=== PATIENT | female | born 1955 | race Caucasian/White ===

== ENCOUNTER 2016-10-07 22:01 | Emergency (ER) | payer OTHER ==
[~2016-10-07] VITALS: Ht 175.3 cm; Wt 117.9 kg
[~2016-10-07 22:01] MED LIST: AMOXIL500 MG PO; ASPIRIN325 M1 PO; ATIVAN1 M1 PO; AUGMENTIN 500M500 MG PO; AUGMENTIN 875-1 EACH PO; BACTRIM DS 8001 TAB PO; CEPHALEXIN500 MG PO; CYMBALTA 30 MG30 MG PO; CYMBALTA30 M1 PO; CYMBALTA60 M1 PO; DILAUDID2 MG PO; DOCUSATE SODIU100 MG PO; DOLOPHINE10 MG PO; DOXYCYCLINE HY100 M2 PO; DURAGESIC1 EAC1 TOP; GABAPENTIN300 M2 PO; GABAPENTIN300 MG PO; GLIMEPIRIDE4 M1 PO; GLUCOPHAGE1000 M1 PO; GLUCOPHAGE500 MG PO; HUMALOG KW100 UNIT/1 SC; HYDROCODONE/ACE1 TA1 PO; HYDROMORPHONE HC2 MG PO; IBUPROFEN600 M1 PO; KEFLEX500 M1 PO; KETOROLAC TROME10 M1 PO; LANTUS SOL100 UNIT/1 SC; MELATONIN5 M1 PO; METFORMIN500 MG PO; METHADONE H5 MG/5 ML PO; MINIPRESS1 MG PO; MIRALAX17 GM PO; MORPHINE SULFAT15 M2 PO; MOTRIN 400 MG400 MG PO; MOTRIN 600 MG600 MG PO; MS CONTIN30 MG PO; NEURONTIN100 M1 PO; NEURONTIN300 MG PO; NICODERM C14 MG/24 H TOP; NORCO 325 MG-51 TAB PO; OXYCODONE HCL10 M2 PO; PANTOPRAZOLE SO40 M1 PO; PERCOCET 325 MG1 TAB PO; PERCOCET 5-3251 EACH PO; PRAZOSIN HCL1 M1 PO; PRILOSEC 20MG C20 MG PO; QUETIAPINE FUM200 M1 PO; QUETIAPINE FUM300 M1 PO; QUETIAPINE FUM400 M1 PO; QUETIAPINE FUMA25 M1 PO; QUETIAPINE FUMA50 M1 PO; SENNA CON/DOCUS1 TAB PO; SENOKOT8.6 MG PO; SEROQUEL (MONO200 MG PO; SEROQUEL 100MG100 MG PO; SEROQUEL100 M1 PO; SEROQUEL300 MG PO; SEROQUEL50 MG PO; TYLENOL TAB 32325 MG PO; VIBRAMYCIN 100100 MG PO; VITAMIN B121000 MCG PO; VITAMIN D1000 IU PO
--- NOTE | 2016-10-07 22:08 | ED UPPER/LOWER EXTREMITY COMPL ---
History of Present Illness General Chief Complaint: General Adult Stated Complaint: CHRONIC PAIN Source: patient, EMS Exam Limitations: no limitations Vital Signs & Intake/Output Vital Signs & Intake/Output . Allergies Coded Allergies: NO KNOWN ALLERGIES (09/26/16) Reconcile Medications Doxycycline Hyclate 100 MG CAPSULE 1 CAP PO BID skin infection Duloxetine Hydrochloride (Cymbalta) 30 MG CAPSULE. 1 CAP PO DAILY NEUROPATHY (Reported) Gabapentin 300 MG CAPSULE 2 CAP PO TID NEUROPATHY (Reported) Glimepiride 4 MG TABLET 1 TAB PO DAILY DM (Reported) Ibuprofen 600 MG TABLET 1 TAB PO Q6-PRN PRN leg pain with food Insulin Glargine,Hum.rec.anlog (Lantus Solostar) 100 UNIT/1 ML INSULN.PEN 25 UNIT SC QAM DIABETES (Reported) Insulin Lispro (Humalog Kwikpen U-100) 100 UNIT/ML INSULN.PEN 1 UNITS SC TIDAC DM (Reported) SLIDING SCALE Ketorolac Tromethamine 10 MG TABLET 1 TAB PO Q6P PRN PAIN Lorazepam (Ativan) 1 MG TABLET 1 TAB PO BID PRN ANXIETY/NEUROPATHY SIX TABS... [id number] Metformin HCl (Glucophage) 1,000 MG TABLET 1 TAB PO BID DIABETES (Reported) Oxycodone HCl 10 MG TABLET 1 TAB PO TID PRN LEG PAIN Oxycodone HCl/Acetaminophen (Percocet 5-325 MG Tablet) 5 MG-325 MG TABLET 1 TAB PO 4XDP PRN PAIN six...[id number] Pantoprazole Sodium 40 MG TABLET.DR 1 TAB PO DAILY GERD (Reported) Prazosin Hydrochloride (Minipress) 1 MG CAPSULE 1 CAP PO QPM NIGHTMARES ( Reported) Quetiapine Fumarate 400 MG TABLET 1 TAB PO QPM SLEEP (Reported) Triage Nurses Notes Reviewed? yes Onset: Abrupt Duration: week(s):, waxing and waning Timing: recent history Severity: mild, moderate Pain/Injury Location: Left: Foot. Method of Injury: "I haven't slept in 2 days." Modifying Factors: Improves With: pain medication, rest. Associated Symptoms: left foot ulcer, "because I walked on it yesterday" HPI: 60 yo woman presents with chronic pain. She shares that she has not slept in 2 days. She notes also that she walked on her left foot which resulted in a superficial ulcer. She notes no new trauma. She is otherwise well. Past History Travel History Traveled to [place] past 21 day No Medical History Any Pertinent Medical History? 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 FH: CAD (coronary artery disease) FH: myocardial infarction relation unknown (HTN, Diabetee, Bipolar disorder and Depression). Hx Contributory? No Review of Systems Review of Systems Constitutional: Reports: no symptoms. EENTM: Reports: no symptoms. Respiratory: Reports: no symptoms. Cardiovascular: Reports: no symptoms. Gastrointestinal/Abdominal: Reports: no symptoms. Genitourinary: Reports: no symptoms. Musculoskeletal: Reports: no symptoms. Skin: Reports: no symptoms. Neurological/Psychological: Reports: no symptoms. Hematologic/Endocrine: Reports: no symptoms. Immunological: Reports: no symptoms. All Other Systems: Reviewed and Negative Physical Exam Physical Exam General Appearance: well developed/nourished, mild distress Head: atraumatic Eyes: Bilateral: PERRL, EOMI. Ears, Nose, Throat: normal pharynx, normal ENT inspection, hearing grossly normal Neck: normal inspection, supple Cardiovascular/Respiratory: regular rate/rhythm Back: normal inspection Foot Left: s/p metatarsal amputation with superficial ulcer, 2cm, on plantar aspect. no sign of infection. Foot Right: no change from prior exam. Skin: intact, normal color, warm/dry Lymphatic: no anterior cervical pat Progress Differential Diagnosis: chronic pain vs neuropathy vs other. Plan of Care: Current Medications Sig/Macy Start time Last Medication Dose Stop Time Status Admin Acetaminophen 975 MG ONCE ONE 10/07 2214 UNVr (Tylenol) 10/07 2215 Ibuprofen 800 MG ONCE ONE 10/07 2214 UNVr (Motrin) 10/07 2215 non infected shallow left foot ulcer... generous bacitracin dressing with gauze place on left foot. Pt to follow up with pmd, pain management, and wound care. (ANTWON OSBORN,URIEL Bain) Departure Departure Disposition: HOME OR SELF CARE Condition: Stable Clinical Impression Primary Impression: Chronic pain Secondary Impressions: Foot ulcer, Neuropathy Referrals: SAL LOERA APRN (PCP/Family) Departure Forms: Customer Survey General Discharge Information
[2016-10-07 22:24] VITALS: BP 145/82
== END 2016-10-07 22:36 ==
LOC: ERH 22:01
DX: L97.529 Non-pressure chronic ulcer of other part of left foot with unspecified severity (principal); G62.9 Polyneuropathy, unspecified

== ENCOUNTER 2016-10-10 17:05 | Emergency (ER) | payer OTHER ==
[~2016-10-10] VITALS: Ht 175.3 cm; Wt 120.7 kg
[2016-10-10 17:16] VITALS: BP 142/68
--- NOTE | 2016-10-10 17:51 | ED UPPER/LOWER EXTREMITY COMPL ---
History of Present Illness General Chief Complaint: Lower Extremity Problems Stated Complaint: LEFT LEG AND FOOT PAIN Source: patient Exam Limitations: no limitations Allergies Coded Allergies: NO KNOWN ALLERGIES (09/26/16) Reconcile Medications Doxycycline Hyclate 100 MG CAPSULE 1 CAP PO BID skin infection Duloxetine Hydrochloride (Cymbalta) 30 MG CAPSULE.DR 1 CAP PO DAILY NEUROPATHY (Reported) Gabapentin 300 MG CAPSULE 2 CAP PO TID NEUROPATHY (Reported) Glimepiride 4 MG TABLET 1 TAB PO DAILY DM (Reported) Ibuprofen 600 MG TABLET 1 TAB PO Q6-PRN PRN leg pain with food Insulin Glargine,Hum.rec.anlog (Lantus Solostar) 100 UNIT/1 ML INSULN.PEN 25 UNIT SC QAM DIABETES (Reported) Insulin Lispro (Humalog Kwikpen U-100) 100 UNIT/ML INSULN.PEN 1 UNITS SC TIDAC DM (Reported) SLIDING SCALE Ketorolac Tromethamine 10 MG TABLET 1 TAB PO Q6P PRN PAIN Ketorolac Tromethamine 10 MG TABLET 1 TAB PO Q6P PRN PAIN Lorazepam (Ativan) 1 MG TABLET 1 TAB PO BID PRN ANXIETY/NEUROPATHY SIX TABS... [id number] Metformin HCl (Glucophage) 1,000 MG TABLET 1 TAB PO BID DIABETES (Reported) Oxycodone HCl 10 MG TABLET 1 TAB PO TID PRN LEG PAIN Oxycodone HCl/Acetaminophen (Percocet 5-325 MG Tablet) 5 MG-325 MG TABLET 1 TAB PO 4XDP PRN PAIN six...[id number] Pantoprazole Sodium 40 MG TABLET. 1 TAB PO DAILY GERD (Reported) Prazosin Hydrochloride (Minipress) 1 MG CAPSULE 1 CAP PO QPM NIGHTMARES ( Reported) Quetiapine Fumarate 400 MG TABLET 1 TAB PO QPM SLEEP (Reported) Triage Note: PT HERE FOR HER CHRONIC LEG AND FOOT PAIN. Triage Nurses Notes Reviewed? yes HPI: This patient is a 61-year-old female with chronic leg and foot pain status post amputation on the left foot who presented to the emergency department today by maintenance for evaluation of chronic pain. The patient reported that she sees pain management in her primary care physician, but neither are prescribing her pain medications at this time. She has another appointment in 1 month. The patient was seen here at [facility] earlier today by Dr. Zayas where she had her lower extremity wounds checked and dressed. The patient reported that her left foot pain where she has an ulcer started hurting her more last night. She reported the pain to the to a 10 out of 10 and sometimes radiates up her leg. The patient denied any fevers, chills, abdominal pain, difficulty breathing, or chest pain. The patient is requesting a shot of Toradol and a shot of Benadryl. She reported, "I just need his medications and then I will be on my way." (MARGO DE PAZ PA-C) Vital Signs & Intake/Output Vital Signs & Intake/Output ED Intake and Output 10/11 0000 10/10 1200 Intake Total Output Total Balance Patient 266 lb Weight Past History Travel History Traveled to [place] past 21 day No Medical History Any Pertinent Medical History? 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 Other Medical Hx: hep B, osteomyelitis, peripheral vascular disease History of MRSA: Yes History of VRE: No History of CDIFF: No Surgical History Surgical History: LEFT FOOT TRANSMETATARSAL AMPUTATION, VASCULAR PROCEDURE LOWER LEGS status post lower extremity revascularization Psychosocial History Who do you live with Patient/Self Services at Home Home Health Aide, Nursing What is your primary language Indian Tobacco Use: Current Daily Use Daily Tobacco Use Amount/Type: => 5 Cigarettes daily ETOH Use: denies use Illicit Drug Use: marijuana Family History Family History, If Any: MOTHER (PVD, always had purple feet). FH: CAD (coronary artery disease) FH: myocardial infarction relation unknown (HTN, Diabetee, Bipolar disorder and Depression). Hx Contributory? Yes (MARGO DE PAZ PA-C) Review of Systems Review of Systems Constitutional: Reports: no symptoms. EENTM: Reports: no symptoms. Respiratory: Reports: no symptoms. Cardiovascular: Reports: no symptoms. Gastrointestinal/Abdominal: Reports: no symptoms. Musculoskeletal: Reports: see HPI. Skin: Reports: see HPI. Neurological/Psychological: Reports: no symptoms. All Other Systems: Reviewed and Negative (MARGO DE PAZ PA-C) Physical Exam Physical Exam General Appearance: well developed/nourished, no apparent distress, alert, awake Comments: Well-developed well-nourished person in no acute distress HEENT: Normal EENT exam, head normocephalic, moist mucous membranes Neck: Supple Back: Normal inspection Respiratory: No respiratory distress. Speaking in full sentences Left foot/ankle: No edema or erythema. Clean bandage intact over the plantar aspect of the foot which is status post amputation with no surrounding skin irritation or signs of infection. Dorsalis pedis and posterior tibialis pulses 2+ and strong. Full range of motion of the ankle. No signs of effusion or trauma. Neuro: Alert oriented x3, cranial nerves II through XII grossly intact. Skin: No appreciable rash on exposed skin, skin is warm and dry. Psych: Mood and affect is normal, memory and judgment is normal. (MARGO DE PAZ PA-C) Progress Differential Diagnosis: arterial insufficiency, cellulitis, contusion, DVT, gout , ULCERATION, MEDICATION SEEKING Plan of Care: Current Medications Sig/Macy Start time Last Medication Dose Stop Time Status Admin Diphenhydramine HCl 50 MG ONCE ONE 10/10 1744 AC (Benadryl) 10/10 1745 Ketorolac 60 MG ONCE ONE 10/10 1744 AC Tromethamine 10/10 1745 (Toradol) Departure Departure Disposition: HOME OR SELF CARE Condition: Stable Clinical Impression Primary Impression: Chronic pain Qualifiers: Chronic pain type: other chronic pain Qualified Code: G89.29 - Other chronic pain Referrals: SAL LOERA APRN (PCP/Family) Additional Instructions: Continue to take all previously prescribed medications as directed. Be sure to follow-up with your primary care physician. Be sure to attend her previously scheduled appointment with pain management. Return for any worsening symptoms or concerns. Departure Forms: Customer Survey General Discharge Information (MARGO DE PAZ PA-C) PA/MANAGER DATABASE Co-Sign Statement Statement: ED Attending supervision documentation- [] I saw and evaluated the patient. I have also reviewed all the pertinent lab results and diagnostic results. I agree with the findings and the plan of care as documented in the PA's/MANAGER DATABASE's documentation. [X] I have reviewed the ED Record and agree with the PA's/MANAGER DATABASE's documentation. [] Additions or exceptions (if any) to the PAs/MANAGER DATABASE's note and plan are summarized below: [] (ALLEN OSBORN,JONNA)
[2016-10-11] MEDS ORDERED: KETOROLAC TROME10 M1 PO (20:47)
== END 2016-10-10 19:14 ==
LOC: ERH 17:05
DX: L97.529 Non-pressure chronic ulcer of other part of left foot with unspecified severity (principal); G89.29 Other chronic pain
CPT/HCPCS: 96372; 97597; J1200; J1885

== ENCOUNTER 2016-10-11 17:24 | Emergency (ER) | payer OTHER ==
[~2016-10-11] VITALS: Ht 175.3 cm; Wt 120.7 kg
--- NOTE | 2016-10-11 20:46 | ED GENERAL ADULT ---
History of Present Illness General Chief Complaint: Lower Extremity Problems Stated Complaint: BILATERAL LEG PAIN Source: patient, old records Exam Limitations: no limitations Vital Signs & Intake/Output Vital Signs & Intake/Output Vital Signs Date Time Temp Pulse Resp B/P Pulse O2 O2 Flow FiO2 Ox Delivery Rate 10/11 1807 97.5 79 16 153/85 96 Room Air Allergies Coded Allergies: NO KNOWN ALLERGIES (09/26/16) Reconcile Medications Doxycycline Hyclate 100 MG CAPSULE 1 CAP PO BID skin infection Duloxetine Hydrochloride (Cymbalta) 30 MG CAPSULE.DR 1 CAP PO DAILY NEUROPATHY (Reported) Gabapentin 300 MG CAPSULE 2 CAP PO TID NEUROPATHY (Reported) Glimepiride 4 MG TABLET 1 TAB PO DAILY DM (Reported) Ibuprofen 600 MG TABLET 1 TAB PO Q6-PRN PRN leg pain with food Insulin Glargine,Hum.rec.anlog (Lantus Solostar) 100 UNIT/1 ML INSULN.PEN 25 UNIT SC QAM DIABETES (Reported) Insulin Lispro (Humalog Kwikpen U-100) 100 UNIT/ML INSULN.PEN 1 UNITS SC TIDAC DM (Reported) SLIDING SCALE Ketorolac Tromethamine 10 MG TABLET 1 TAB PO Q6P PRN PAIN Ketorolac Tromethamine 10 MG TABLET 1 TAB PO Q6P PRN PAIN Lorazepam (Ativan) 1 MG TABLET 1 TAB PO BID PRN ANXIETY/NEUROPATHY SIX TABS... [id number] Metformin HCl (Glucophage) 1,000 MG TABLET 1 TAB PO BID DIABETES (Reported) Oxycodone HCl 10 MG TABLET 1 TAB PO TID PRN LEG PAIN Oxycodone HCl/Acetaminophen (Percocet 5-325 MG Tablet) 5 MG-325 MG TABLET 1 TAB PO 4XDP PRN PAIN six...[id number] Pantoprazole Sodium 40 MG TABLET.DR 1 TAB PO DAILY GERD (Reported) Prazosin Hydrochloride (Minipress) 1 MG CAPSULE 1 CAP PO QPM NIGHTMARES ( Reported) Quetiapine Fumarate 400 MG TABLET 1 TAB PO QPM SLEEP (Reported) Triage Note: PT HERE FOR CRONIC LOWER EXT. PAIN Triage Nurses Notes Reviewed? yes Onset: chronic Duration: constant, continues in ED Timing: remote history Injury Environment: home Severity: moderate Modifying Factors: Worsens With: movement. LMP (ages 10-50): post menopausal : No Patient currently breastfeeds: No HPI: Patient presents with chronic bilateral feet pain and recurrent left foot ulcer evaluated in wound clinic 1 day ago. Reportedly seen by pain management with meds to begin in 1 month. No fever chills chest pain shortness of breath nausea vomiting diarrhea abdominal pain dysuria bleeding. Past History Travel History Traveled to [place] past 21 day No Medical History Any Pertinent Medical History? 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 Other Medical Hx: hep B, osteomyelitis, peripheral vascular disease History of MRSA: Yes History of VRE: No History of CDIFF: No Surgical History Surgical History: LEFT FOOT TRANSMETATARSAL AMPUTATION, VASCULAR PROCEDURE LOWER LEGS status post lower extremity revascularization Psychosocial History Who do you live with Patient/Self Services at Home Home Health Aide, Nursing What is your primary language Guinean Tobacco Use: Current Daily Use Daily Tobacco Use Amount/Type: => 5 Cigarettes daily ETOH Use: denies use Illicit Drug Use: denies illicit drug use Family History Family History, If Any: MOTHER (PVD, always had purple feet). FH: CAD (coronary artery disease) FH: myocardial infarction relation unknown (HTN, Diabetee, Bipolar disorder and Depression). Hx Contributory? No Review of Systems Review of Systems Constitutional: Reports: no symptoms. EENTM: Reports: no symptoms. Respiratory: Reports: no symptoms. Cardiovascular: Reports: no symptoms. GI: Reports: no symptoms. Genitourinary: Reports: no symptoms. Musculoskeletal: Reports: see HPI. Skin: Reports: see HPI, rash. Neurological/Psychological: Reports: no symptoms. Hematologic/Endocrine: Reports: no symptoms. Immunologic/Allergic: Reports: no symptoms. All Other Systems: Reviewed and Negative Physical Exam Physical Exam General Appearance: well developed/nourished, alert, awake, anxious, mild distress, obese Head: atraumatic, normal appearance Eyes: Bilateral: normal appearance, PERRL, EOMI. Ears, Nose, Throat: normal pharynx, normal ENT inspection Neck: normal inspection, supple, full range of motion, no midline tenderness Respiratory: normal breath sounds, chest non-tender, no respiratory distress, quiet respiration, lungs clear Cardiovascular: regular rate/rhythm, normal peripheral pulses, norml femoral pulses equa Peripheral Pulses: 4+ carotid (R), 4+ carotid (L), 2+ radial (R), 2+ radial (L) Gastrointestinal: normal bowel sounds, soft, non-tender, no organomegaly Back: normal inspection, normal range of motion, no vertebral tenderness Extremities: normal range of motion, dime size superficial ulcer without erythema left foot Neurologic/Psych: no motor/sensory deficits, awake, alert, oriented x 3, carton marker machine II- XII nml as tested Reflexes: 2+: bicep (R), bicep (L). Skin: intact, normal color Lymphatic: no anterior cervical pat Core Measures ACS in differential dx? No CVA/TIA Diagnosis: No Severe Sepsis Present: No Septic Shock Present: No Progress Differential Diagnoses I considered the following diagnoses in my evaluation of the patient: chronic pain syndrome diabetic foot ulcer Plan of Care: Current Medications Sig/Macy Start time Last Medication Dose Stop Time Status Admin Gabapentin 600 MG ONCE ONE 10/11 2044 UNVr (Neurontin) 10/11 2045 Ibuprofen 800 MG ONCE ONE 10/11 2044 UNVr (Motrin) 10/11 2045 Initial ED EKG: none Departure Departure Time of Disposition: 2044 Disposition: HOME OR SELF CARE Condition: Stable Clinical Impression Primary Impression: Chronic pain syndrome Secondary Impressions: Ulcer of left foot Qualifiers: Non-pressure ulcer stage: unspecified non-pressure ulcer stage Qualified Code: L97.529 - Non-pressure chronic ulcer of other part of left foot with unspecified severity Referrals: SAL LOERA APRN (PCP/Family) Additional Instructions: Increase gabapentin to 600 mg 4 times a day Departure Forms: Customer Survey General Discharge Information Prescriptions: Current Visit Scripts Ketorolac Tromethamine 1 TAB PO Q6P PRN PAIN #20 TAB Critical Care Note Critical Care Note Critical Care Time: non-applicable
[2016-10-11] MEDS ORDERED: KETOROLAC TROME10 M1 PO (20:47)
[2016-10-11 21:39] VITALS: BP 145/84
== END 2016-10-11 21:41 ==
LOC: ERH 17:24
DX: L97.529 Non-pressure chronic ulcer of other part of left foot with unspecified severity (principal); G89.29 Other chronic pain
CPT/HCPCS: 96372; J1885

== ENCOUNTER 2016-10-16 03:05 | Emergency (ER) | payer OTHER ==
[~2016-10-16] VITALS: Ht 176.5 cm; Wt 120.7 kg
--- NOTE | 2016-10-16 03:17 | ED UPPER/LOWER EXTREMITY COMPL ---
History of Present Illness General Chief Complaint: Lower Extremity Problems Stated Complaint: BIBA BILAT LEG PAIN Source: patient, old records, EMS Exam Limitations: no limitations Vital Signs & Intake/Output Vital Signs & Intake/Output Vital Signs Date Time Temp Pulse Resp B/P Pulse O2 O2 Flow FiO2 Ox Delivery Rate 10/16 318 97.7 107 149/61 10/16 0309 96 Room Air 10/16 0309 110 18 96 Room Air Allergies Coded Allergies: NO KNOWN ALLERGIES (09/26/16) Reconcile Medications Doxycycline Hyclate 100 MG CAPSULE 1 CAP PO BID skin infection Duloxetine Hydrochloride (Cymbalta) 30 MG CAPSULE.DR 1 CAP PO DAILY NEUROPATHY (Reported) Gabapentin 300 MG CAPSULE 2 CAP PO TID NEUROPATHY (Reported) Glimepiride 4 MG TABLET 1 TAB PO DAILY DM (Reported) Ibuprofen 600 MG TABLET 1 TAB PO Q6-PRN PRN leg pain with food Insulin Glargine,Hum.rec.anlog (Lantus Solostar) 100 UNIT/1 ML INSULN.PEN 25 UNIT SC QAM DIABETES (Reported) Insulin Lispro (Humalog Kwikpen U-100) 100 UNIT/ML INSULN.PEN 1 UNITS SC TIDAC DM (Reported) SLIDING SCALE Ketorolac Tromethamine 10 MG TABLET 1 TAB PO Q6P PRN PAIN Ketorolac Tromethamine 10 MG TABLET 1 TAB PO Q6P PRN PAIN Lidocaine HCl (Lidocaine) 5 % OINT...G. PAIN (Reported) Lorazepam (Ativan) 1 MG TABLET 1 TAB PO BID PRN ANXIETY/NEUROPATHY SIX TABS... [id number] Metformin HCl (Glucophage) 1,000 MG TABLET 1 TAB PO BID DIABETES (Reported) Metoprolol Succinate 50 MG TAB.ER.24H 1 TAB PO DAILY HTN (Reported) Oxycodone HCl 10 MG TABLET 1 TAB PO TID PRN LEG PAIN Oxycodone HCl/Acetaminophen (Percocet 5-325 MG Tablet) 5 MG-325 MG TABLET 1 TAB PO 4XDP PRN PAIN six...[id number] Pantoprazole Sodium 40 MG TABLET.DR 1 TAB PO DAILY GERD (Reported) Prazosin Hydrochloride (Minipress) 1 MG CAPSULE 1 CAP PO QPM NIGHTMARES ( Reported) Quetiapine Fumarate 400 MG TABLET 1 TAB PO QPM SLEEP (Reported) Triage Note: TRIAGE: PATIENT BERTA FROM HOME REPORTING CHRONIC BILAT LOWER EXT PAIN 10/10. TAKING HOME MEDS W/O RELIEF. DENIES OTHER COMPLAINTS. AGITATED AND REFUSING VITAL SIGNS IN TRIAGE. Triage Nurses Notes Reviewed? yes HPI: Patient called complaining of bilateral leg pain. Patient has been seen multiple times for similar complaints. Patient was seen by her floor cashier yesterday and he scheduled her to see a vascular surgeon. The pain is chronic. Pain worsens at night. The pain is aching and throbbing in nature. Pain is 10 out of 10. There are no aggravating or mitigating factors. There is no recent trauma. Past History Travel History Traveled to [place] past 21 day No Medical History Any Pertinent Medical History? 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 Other Medical Hx: hep B, osteomyelitis, peripheral vascular disease History of MRSA: Yes History of VRE: No History of CDIFF: No Surgical History Surgical History: LEFT FOOT TRANSMETATARSAL AMPUTATION, VASCULAR PROCEDURE LOWER LEGS status post lower extremity revascularization Psychosocial History Who do you live with Patient/Self Services at Home Home Health Aide, Nursing What is your primary language Lao Tobacco Use: Current Daily Use Daily Tobacco Use Amount/Type: => 5 Cigarettes daily ETOH Use: denies use Illicit Drug Use: denies illicit drug use Family History Family History, If Any: MOTHER (PVD, always had purple feet). FH: CAD (coronary artery disease) FH: myocardial infarction relation unknown (HTN, Diabetee, Bipolar disorder and Depression). Hx Contributory? No Review of Systems Review of Systems Constitutional: Reports: no symptoms. Respiratory: Reports: no symptoms. Cardiovascular: Reports: no symptoms. Gastrointestinal/Abdominal: Reports: no symptoms. Musculoskeletal: Reports: see HPI. Immunological: Reports: no symptoms. Physical Exam Physical Exam General Appearance: well developed/nourished, alert, awake, moderate distress Head: atraumatic Eyes: Bilateral: PERRL, EOMI. Neck: normal inspection, supple Cardiovascular/Respiratory: normal breath sounds, normal peripheral pulses, regular rate/rhythm, no respiratory distress Foot Left: MIDTARSAL AMPUTATION Foot Right: ULCER Neurologic/Tendon: responds to pain Progress Differential Diagnosis: ACUTE EXACERBATION OF CHRONIC LEG PAIN Plan of Care: Current Medications Sig/Macy Start time Last Medication Dose Stop Time Status Admin Diphenhydramine HCl 50 MG ONCE ONE 10/16 314 UNVr (Benadryl) 10/16 315 Ketorolac 60 MG ONCE ONE 10/16 314 UNVr Tromethamine 10/16 315 (Toradol) Departure Departure Disposition: HOME OR SELF CARE Condition: Stable Clinical Impression Primary Impression: Bilateral leg pain Referrals: SAL LOERA APRN (PCP/Family) TROY VARNER MD Additional Instructions: FOLLOW UP WITH DR. VARNER Departure Forms: Customer Survey General Discharge Information
[2016-10-16 03:19] VITALS: BP 149/61
[2016-10-16] MEDS ORDERED: METOPROLOL SUCC50 M2 PO (03:34)
[2016-10-16] MEDS ORDERED: LIDOCAINE35.44 GM (03:34)
== END 2016-10-16 03:35 ==
LOC: ERH 03:05
DX: M79.604 Pain in right leg (principal); M79.605 Pain in left leg
CPT/HCPCS: 96372; J1200; J1885

== ENCOUNTER 2016-10-19 23:45 | Emergency (ER) | payer OTHER ==
[~2016-10-19] VITALS: Ht 167.6 cm; Wt 95.3 kg
[~2016-10-19 23:45] MED LIST changes: +LIDOCAINE35.44 GM; +METOPROLOL SUCC50 M2 PO
--- NOTE | 2016-10-19 23:50 | ED UPPER/LOWER EXTREMITY COMPL ---
History of Present Illness General Chief Complaint: Lower Extremity Problems Stated Complaint: BIBA X'S C/O CHRONIC LEG PAIN Source: patient, EMS Exam Limitations: no limitations Vital Signs & Intake/Output Vital Signs & Intake/Output Vital Signs Date Time Temp Pulse Resp B/P Pulse O2 O2 Flow FiO2 Ox Delivery Rate 10/20 0007 98.7 85 19 134/70 96 Room Air 10/19 2359 99 Room Air Allergies Coded Allergies: NO KNOWN ALLERGIES (09/26/16) Reconcile Medications Doxycycline Hyclate 100 MG CAPSULE 1 CAP PO BID skin infection Duloxetine Hydrochloride (Cymbalta) 30 MG CAPSULE.DR 1 CAP PO DAILY NEUROPATHY (Reported) Gabapentin 300 MG CAPSULE 2 CAP PO TID NEUROPATHY (Reported) Glimepiride 4 MG TABLET 1 TAB PO DAILY DM (Reported) Ibuprofen 600 MG TABLET 1 TAB PO Q6-PRN PRN leg pain with food Insulin Glargine,Hum.rec.anlog (Lantus Solostar) 100 UNIT/1 ML INSULN.PEN 25 UNIT SC QAM DIABETES (Reported) Insulin Lispro (Humalog Kwikpen U-100) 100 UNIT/ML INSULN.PEN 1 UNITS SC TIDAC DM (Reported) SLIDING SCALE Ketorolac Tromethamine 10 MG TABLET 1 TAB PO Q6P PRN PAIN Ketorolac Tromethamine 10 MG TABLET 1 TAB PO Q6P PRN PAIN Lidocaine HCl (Lidocaine) 5 % OINT...G. PAIN (Reported) Lorazepam (Ativan) 1 MG TABLET 1 TAB PO BID PRN ANXIETY/NEUROPATHY SIX TABS... [id number] Metformin HCl (Glucophage) 1,000 MG TABLET 1 TAB PO BID DIABETES (Reported) Metoprolol Succinate 50 MG TAB.ER.24H 1 TAB PO DAILY HTN (Reported) Oxycodone HCl 10 MG TABLET 1 TAB PO TID PRN LEG PAIN Oxycodone HCl/Acetaminophen (Percocet 5-325 MG Tablet) 5 MG-325 MG TABLET 1 TAB PO 4XDP PRN PAIN six...[id number] Pantoprazole Sodium 40 MG TABLET.DR 1 TAB PO DAILY GERD (Reported) Prazosin Hydrochloride (Minipress) 1 MG CAPSULE 1 CAP PO QPM NIGHTMARES ( Reported) Quetiapine Fumarate 400 MG TABLET 1 TAB PO QPM SLEEP (Reported) Triage Nurses Notes Reviewed? yes Onset: Gradual Duration: intermittent Timing: recent history Severity: mild, moderate Pain/Injury Location: Bilateral: Foot. Method of Injury: unknown Modifying Factors: Worsens With: movement. Associated Symptoms: "pins and needles" HPI: 61yo woman presents with bilateral foot pain, consistent with prior episodes of neuropathy. She notes that she was unable to secure an appointment yet for her pain management consultation. She has no ibuprofen at home or other medications for pain that other prescribers have given to her. She notes no new injury. She has no fever chills swelling shortness of breath chest pain fever headache or abdominal pain. She is otherwise well. Past History Medical History Any Pertinent Medical History? 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 FH: CAD (coronary artery disease) FH: myocardial infarction relation unknown (HTN, Diabetee, Bipolar disorder and Depression). Hx Contributory? No Review of Systems Review of Systems Constitutional: Reports: no symptoms. EENTM: Reports: no symptoms. Respiratory: Reports: no symptoms. Cardiovascular: Reports: no symptoms. Gastrointestinal/Abdominal: Reports: no symptoms. Genitourinary: Reports: no symptoms. Musculoskeletal: Reports: no symptoms. Skin: Reports: no symptoms. Neurological/Psychological: Reports: no symptoms. Hematologic/Endocrine: Reports: no symptoms. Immunological: Reports: no symptoms. All Other Systems: Reviewed and Negative Physical Exam Physical Exam General Appearance: well developed/nourished, mild distress Head: atraumatic Eyes: Bilateral: normal appearance. Ears, Nose, Throat: normal pharynx, normal ENT inspection, hearing grossly normal Neck: normal inspection, supple Cardiovascular/Respiratory: regular rate/rhythm Back: normal inspection Skin: intact, normal color, warm/dry Lymphatic: no anterior cervical pat Comments: Bilateral feet are clean dry and intact with metatarsal amputations area there is no sign of infection or edema. Light touch is diminished bilaterally. There is no change from prior exams by this provider. Progress Differential Diagnosis: neuropathy versus chronic pain versus muscle spasm versus other Plan of Care: Patient given Toradol 60 mg IM and Benadryl 50 mg IM per her request. I encouraged close follow-up with her PMD and pain management. Departure Departure Disposition: HOME OR SELF CARE Condition: Stable Clinical Impression Primary Impression: Chronic pain Secondary Impressions: Neuropathy Referrals: SAL LOERA APRN (PCP/Family) Departure Forms: Customer Survey General Discharge Information Prescriptions: Current Visit Scripts Ibuprofen 1 TAB PO Q6-PRN PRN leg pain #90 TAB with food
[2016-10-19] MEDS ORDERED: IBUPROFEN600 M1 PO (23:52)
[2016-10-20 00:07] VITALS: BP 134/70
== END 2016-10-20 00:07 ==
LOC: ERH 23:45
DX: G57.61 Lesion of plantar nerve, right lower limb (principal); G57.62 Lesion of plantar nerve, left lower limb
CPT/HCPCS: 96372

== ENCOUNTER 2016-10-20 02:06 | Emergency (ER) | payer OTHER ==
[~2016-10-20] VITALS: Ht 162.6 cm; Wt 95.3 kg
--- NOTE | 2016-10-20 02:20 | ED CARDIAC/CP/PALPITATIONS ---
History of Present Illness General Chief Complaint: Chest Pain Stated Complaint: BIBA CP Source: patient Exam Limitations: no limitations Vital Signs & Intake/Output Vital Signs & Intake/Output . Allergies Coded Allergies: NO KNOWN ALLERGIES (09/26/16) Reconcile Medications Doxycycline Hyclate 100 MG CAPSULE 1 CAP PO BID skin infection Duloxetine Hydrochloride (Cymbalta) 30 MG CAPSULE.DR 1 CAP PO DAILY NEUROPATHY (Reported) Gabapentin 300 MG CAPSULE 2 CAP PO TID NEUROPATHY (Reported) Glimepiride 4 MG TABLET 1 TAB PO DAILY DM (Reported) Ibuprofen 600 MG TABLET 1 TAB PO Q6-PRN PRN leg pain with food Insulin Glargine,Hum.rec.anlog (Lantus Solostar) 100 UNIT/1 ML INSULN.PEN 25 UNIT SC QAM DIABETES (Reported) Insulin Lispro (Humalog Kwikpen U-100) 100 UNIT/ML INSULN.PEN 1 UNITS SC TIDAC DM (Reported) SLIDING SCALE Ketorolac Tromethamine 10 MG TABLET 1 TAB PO Q6P PRN PAIN Ketorolac Tromethamine 10 MG TABLET 1 TAB PO Q6P PRN PAIN Lidocaine HCl (Lidocaine) 5 % OINT...G. PAIN (Reported) Lorazepam (Ativan) 1 MG TABLET 1 TAB PO BID PRN ANXIETY/NEUROPATHY SIX TABS... [id number] Metformin HCl (Glucophage) 1,000 MG TABLET 1 TAB PO BID DIABETES (Reported) Metoprolol Succinate 50 MG TAB.ER.24H 1 TAB PO DAILY HTN (Reported) Oxycodone HCl 10 MG TABLET 1 TAB PO TID PRN LEG PAIN Oxycodone HCl/Acetaminophen (Percocet 5-325 MG Tablet) 5 MG-325 MG TABLET 1 TAB PO 4XDP PRN PAIN six...[id number] Pantoprazole Sodium 40 MG TABLET.DR 1 TAB PO DAILY GERD (Reported) Prazosin Hydrochloride (Minipress) 1 MG CAPSULE 1 CAP PO QPM NIGHTMARES ( Reported) Quetiapine Fumarate 400 MG TABLET 1 TAB PO QPM SLEEP (Reported) Triage Nurses Notes Reviewed? yes Onset: Gradual Duration: minute(s): Timing: recent history Quality/Severity: mild Location: central Radiation: no radiation Activities at Onset: none Prior Chest Pain/Card Workup: non-cardiac Modifying Factors: Worsens With: palpation. HPI: 61-year-old woman returns to the emergency department less than 1 hour after her discharge reporting chest pain. She states that she has pain when she presses her chest. She has no fever chills shortness of breath wheezing. Her pain does not radiate. She is otherwise well. Past History Travel History Traveled to [place] past 21 day No Medical History Any Pertinent Medical History? 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 FH: CAD (coronary artery disease) FH: myocardial infarction relation unknown (HTN, Diabetee, Bipolar disorder and Depression). Hx Contributory? No Review of Systems Review of Systems Constitutional: Reports: no symptoms. EENTM: Reports: no symptoms. Respiratory: Reports: no symptoms. Cardiovascular: Reports: no symptoms. GI: Reports: no symptoms. Genitourinary: Reports: no symptoms. Musculoskeletal: Reports: no symptoms. Skin: Reports: no symptoms. Neurological/Psychological: Reports: no symptoms. Hematologic/Endocrine: Reports: no symptoms. Immunologic/Allergic: Reports: no symptoms. All Other Systems: Reviewed and Negative Physical Exam Physical Exam General Appearance: well developed/nourished, mild distress Head: atraumatic, normal appearance Eyes: Bilateral: normal appearance. Ears, Nose, Throat: normal pharynx, normal ENT inspection Neck: normal inspection, supple, full range of motion Respiratory: normal breath sounds, chest non-tender, no respiratory distress Cardiovascular: regular rate/rhythm Gastrointestinal: normal bowel sounds, soft, non-tender, no organomegaly Back: normal inspection, normal range of motion Extremities: normal inspection Neurologic/Psych: no motor/sensory deficits, awake, alert, oriented x 3 Skin: intact, normal color, warm/dry Core Measures ACS in differential dx? No Severe Sepsis Present: No Septic Shock Present: No Progress Differential Diagnosis: TX versus unstable angina versus costochondritis versus other. Plan of Care: Orders Procedure Date/time Status EKG 10/20 208 Active Laboratory Tests 10/20/16 0218: Troponin I Cancelled, CBC w Diff Cancelled, WBC Cancelled, RBC Cancelled, Hgb Cancelled, Hct Cancelled, MCV Cancelled, MCH Cancelled, RDW Cancelled, Plt Count Cancelled, MPV Cancelled, PUBS MCHC Cancelled Initial ED EKG: none Departure Departure Disposition: LEFT AGAINST MEDICAL ADVICE Condition: Stable Clinical Impression Primary Impression: Chest pain Referrals: SAL LOERA APRN (PCP/Family) Departure Forms: Customer Survey General Discharge Information Comments 10/20/16, 3:20am... Pt presents soon after her recent visit to ED. upon arrival, she insisted that the ambulance bring her back home. She presents with chest pain and yet she declines, after multiple attempts by myself and nursing, to have any workup or treatment. She left the ED and is presently waiting for ride in the waiting room. She declines all attempts for further care. Critical Care Note Critical Care Note Critical Care Time: non-applicable
== END 2016-10-20 03:31 | disposition left against medical advice (07) ==
LOC: ERH 02:06
DX: R07.9 Chest pain, unspecified (principal)
CPT/HCPCS: 99281; J1200; J1885

== ENCOUNTER 2016-10-20 22:53 | Emergency (ER) | payer OTHER ==
[~2016-10-20] VITALS: Ht 175.3 cm; Wt 120.7 kg
--- NOTE | 2016-10-21 06:15 | ED UPPER/LOWER EXTREMITY COMPL ---
History of Present Illness General Chief Complaint: Lower Extremity Problems Stated Complaint: LEG PAIN Source: patient Exam Limitations: no limitations Vital Signs & Intake/Output Vital Signs & Intake/Output Vital Signs Date Time Temp Pulse Resp B/P Pulse O2 O2 Flow FiO2 Ox Delivery Rate 10/20 2255 97.5 93 18 173/81 97 Room Air ED Intake and Output 10/21 0000 10/20 1200 Intake Total Output Total Balance Patient 266 lb Weight Allergies Coded Allergies: NO KNOWN ALLERGIES (09/26/16) Reconcile Medications Doxycycline Hyclate 100 MG CAPSULE 1 CAP PO BID skin infection Duloxetine Hydrochloride (Cymbalta) 30 MG CAPSULE.DR 1 CAP PO DAILY NEUROPATHY (Reported) Gabapentin 300 MG CAPSULE 2 CAP PO TID NEUROPATHY (Reported) Glimepiride 4 MG TABLET 1 TAB PO DAILY DM (Reported) Ibuprofen 600 MG TABLET 1 TAB PO Q6-PRN PRN leg pain with food Insulin Glargine,Hum.rec.anlog (Lantus Solostar) 100 UNIT/1 ML INSULN.PEN 25 UNIT SC QAM DIABETES (Reported) Insulin Lispro (Humalog Kwikpen U-100) 100 UNIT/ML INSULN.PEN 1 UNITS SC TIDAC DM (Reported) SLIDING SCALE Ketorolac Tromethamine 10 MG TABLET 1 TAB PO Q6P PRN PAIN Ketorolac Tromethamine 10 MG TABLET 1 TAB PO Q6P PRN PAIN Lidocaine HCl (Lidocaine) 5 % OINT...G. PAIN (Reported) Lorazepam (Ativan) 1 MG TABLET 1 TAB PO BID PRN ANXIETY/NEUROPATHY SIX TABS... [id number] Metformin HCl (Glucophage) 1,000 MG TABLET 1 TAB PO BID DIABETES (Reported) Metoprolol Succinate 50 MG TAB.ER.24H 1 TAB PO DAILY HTN (Reported) Oxycodone HCl 10 MG TABLET 1 TAB PO TID PRN LEG PAIN Oxycodone HCl/Acetaminophen (Percocet 5-325 MG Tablet) 5 MG-325 MG TABLET 1 TAB PO 4XDP PRN PAIN six...[id number] Pantoprazole Sodium 40 MG TABLET.DR 1 TAB PO DAILY GERD (Reported) Prazosin Hydrochloride (Minipress) 1 MG CAPSULE 1 CAP PO QPM NIGHTMARES ( Reported) Quetiapine Fumarate 400 MG TABLET 1 TAB PO QPM SLEEP (Reported) Triage Note: PT BIBA FOR IGGY LEG PAIN, CHRONIC. SEEN HERE TWICE YESTERDAY. "I CAME FOR MY TORADOL AND BENADRYL, AND I'LL BE BACK FOR IT AGAIN TOMORROW" "CIGARRETTE SMOKING IS MY ONLY BAD HABIT, THAT AND COMING HERE" Triage Nurses Notes Reviewed? yes HPI: Patient presents for evaluation of a painful left foot stump and chronic wounds abdomen getting worse over the past 2 weeks. Patient is to be cared for by Dr. Zayas feels the patient now might require a vascular evaluation. In addition she has an appointment pending with the [facility] (she has already had her intake appointment). The patient's pain is described as constant throbbing and aching and very severe. Nothing seems to make her feel better at this point other than injections of Toradol and Benadryl. Past History Travel History Traveled to [place] past 21 day No Medical History Any Pertinent Medical History? 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 Other Medical Hx: hep B, osteomyelitis, peripheral vascular disease History of MRSA: Yes History of VRE: No History of CDIFF: No Surgical History Surgical History: LEFT FOOT TRANSMETATARSAL AMPUTATION, VASCULAR PROCEDURE LOWER LEGS status post lower extremity revascularization Psychosocial History Who do you live with Patient/Self Services at Home Home Health Aide, Nursing What is your primary language Urdu Tobacco Use: Current Daily Use Daily Tobacco Use Amount/Type: => 5 Cigarettes daily ETOH Use: denies use Illicit Drug Use: denies illicit drug use Family History Family History, If Any: MOTHER (PVD, always had purple feet). FH: CAD (coronary artery disease) FH: myocardial infarction relation unknown (HTN, Diabetee, Bipolar disorder and Depression). Hx Contributory? No Review of Systems Review of Systems Constitutional: Reports: no symptoms. EENTM: Reports: no symptoms. Respiratory: Reports: no symptoms. Cardiovascular: Reports: no symptoms. Gastrointestinal/Abdominal: Reports: no symptoms. Genitourinary: Reports: no symptoms. Musculoskeletal: Reports: see HPI. Skin: Reports: no symptoms. Neurological/Psychological: Reports: no symptoms. Hematologic/Endocrine: Reports: no symptoms. Immunological: Reports: no symptoms. All Other Systems: Reviewed and Negative Physical Exam Physical Exam General Appearance: SEE BELOW Comments: Gen.: Well-nourished, well-developed, no acute respiratory distress. Head: Normocephalic, atraumatic. Eyes: Normal inspection bilaterally Ears: Normal inspection bilaterally Nose: Normal inspection, nasal cannula in place Throat/mouth : Moist mucosa Neck: Supple, full range of motion, no goiter Heart: Regular rate and rhythm Lungs: Quiet respirations Back: Normal range of motion Extremities: Left lower extremity: Partial foot amputation with no warmth or significant erythema. Right lower extremity: Chronic wound of the posteromedial calf with no surrounding erythema or warmth. Small healing ulceration of the dorsal aspect of the right second toe. Neurologic: Cranial nerves grossly intact, speech is clear Skin: warm and dry Psychiatric: Calm, cooperative, no apparent delusions or hallucinations Progress Differential Diagnosis: cellulitis, contusion, gout, septic arthritis, sprain Plan of Care: Current Medications Sig/Macy Start time Last Medication Dose Stop Time Status Admin Diphenhydramine HCl 50 MG ONCE ONE 10/21 614 UNVr (Benadryl) 10/21 615 Ketorolac 60 MG ONCE ONE 10/21 614 UNVr Tromethamine 10/21 615 (Toradol) Departure Departure Disposition: HOME OR SELF CARE Condition: Stable Clinical Impression Primary Impression: Chronic pain Secondary Impressions: Chronic wound of extremity Referrals: SAL LOERA APRN (PCP/Family) Additional Instructions: Follow-up with Dr. Zayas regarding the wound pains. Follow-up with your next appointment with the [facility]. Notify your primary care doctor of this emergency department visit treatment plan. Return if any concerns or sudden worsening. Departure Forms: Customer Survey General Discharge Information
[2016-10-21 06:21] VITALS: BP 152/71
== END 2016-10-21 06:51 ==
LOC: ERH 22:53
DX: M79.606 Pain in leg, unspecified (principal)
CPT/HCPCS: J1200; J1885

== ENCOUNTER 2016-10-23 23:11 | Emergency (ER) | payer OTHER ==
[~2016-10-23] VITALS: Ht 175.3 cm; Wt 120.7 kg
[2016-10-23 23:16] VITALS: BP 126/60
--- NOTE | 2016-10-23 23:17 | ED UPPER/LOWER EXTREMITY COMPL ---
History of Present Illness General Chief Complaint: Lower Extremity Problems Stated Complaint: LEG PAIN Source: patient, old records Exam Limitations: no limitations Vital Signs & Intake/Output Vital Signs & Intake/Output Vital Signs Date Time Temp Pulse Resp B/P Pulse O2 O2 Flow FiO2 Ox Delivery Rate 10/23 2316 98.2 87 18 126/60 94 Room Air Allergies Coded Allergies: NO KNOWN ALLERGIES (09/26/16) Reconcile Medications Doxycycline Hyclate 100 MG CAPSULE 1 CAP PO BID skin infection Duloxetine Hydrochloride (Cymbalta) 30 MG CAPSULE.DR 1 CAP PO DAILY NEUROPATHY (Reported) Gabapentin 300 MG CAPSULE 2 CAP PO TID NEUROPATHY (Reported) Glimepiride 4 MG TABLET 1 TAB PO DAILY DM (Reported) Ibuprofen 600 MG TABLET 1 TAB PO Q6-PRN PRN leg pain with food Insulin Glargine,Hum.rec.anlog (Lantus Solostar) 100 UNIT/1 ML INSULN.PEN 25 UNIT SC QAM DIABETES (Reported) Insulin Lispro (Humalog Kwikpen U-100) 100 UNIT/ML INSULN.PEN 1 UNITS SC TIDAC DM (Reported) SLIDING SCALE Ketorolac Tromethamine 10 MG TABLET 1 TAB PO Q6P PRN PAIN Ketorolac Tromethamine 10 MG TABLET 1 TAB PO Q6P PRN PAIN Lidocaine HCl (Lidocaine) 5 % OINT...G. PAIN (Reported) Lorazepam (Ativan) 1 MG TABLET 1 TAB PO BID PRN ANXIETY/NEUROPATHY SIX TABS... [id number] Metformin HCl (Glucophage) 1,000 MG TABLET 1 TAB PO BID DIABETES (Reported) Metoprolol Succinate 50 MG TAB.ER.24H 1 TAB PO DAILY HTN (Reported) Oxycodone HCl 10 MG TABLET 1 TAB PO TID PRN LEG PAIN Oxycodone HCl/Acetaminophen (Percocet 5-325 MG Tablet) 5 MG-325 MG TABLET 1 TAB PO 4XDP PRN PAIN six...[id number] Pantoprazole Sodium 40 MG TABLET.DR 1 TAB PO DAILY GERD (Reported) Prazosin Hydrochloride (Minipress) 1 MG CAPSULE 1 CAP PO QPM NIGHTMARES ( Reported) Quetiapine Fumarate 400 MG TABLET 1 TAB PO QPM SLEEP (Reported) Triage Nurses Notes Reviewed? yes Onset: Gradual Duration: week(s):, constant, getting worse Timing: recent history Severity: mild, moderate Severity Numbers: 8 Pain/Injury Location: Left: Leg. Method of Injury: unknown No Modifying Factors: none Associated Symptoms: NUMBNESS HPI: 60-year-old female with history of TIA, neuropathy who is been seen numerous times in this emergency room over the past month and is well-known to this institution for chronic lower extremity pain. The patient presents today complaining of an exacerbation of her left lower extremity chronic pain and numbness for which she has requested on multiple occasions a shot of Toradol and Benadryl. There is been no recent new injury. No fever no chills. The patient denies any new complaints no chest pain no shortness of breath or no modifying factors or associated symptoms Past History Travel History Traveled to [place] past 21 day No Medical History Any Pertinent Medical History? 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 FH: CAD (coronary artery disease) FH: myocardial infarction relation unknown (HTN, Diabetee, Bipolar disorder and Depression). Hx Contributory? No Review of Systems Review of Systems Constitutional: Reports: see HPI. All Other Systems: Reviewed and Negative Comments Review of systems: See HPI, All other systems negative. Constitutional, no chills no fever, no malaise HEENT: No visual changes no sore throat no congestion Cardiovascular: No chest pain , no palpitation Skin, no rashes, no change in skin Respiratory: No dyspnea no cough no sputum GI: No nausea no vomiting, no diarrhea : No dysuria Muscle skeletal: Chronic joint pain, no joint swelling, no back pain, no neck pain, Neurologic: numbness, no headache Psych: No stress Heme/endocrine: No bruising no bleeding Immunology: No lymphadenopathY Physical Exam Physical Exam General Appearance: well developed/nourished, no apparent distress, alert, comfortable Comments: Well-developed well-nourished patient in no apparent distress. HEENT: Atraumatic, extraocular motion intact Neck: Supple, FROM Back: FROM Cardiovascular: Regular rate and rhythms no murmurs rubs or gallops, Respiratory: No respiratory distress. Patient speaking in full complete sentences. Breath sounds clear to auscultation bilaterally Extremities: Full range of motion. Sensation intact, left foot is status post metatarsal resection, there is a small 1 cm ulceration to the distal plantar surface of the left foot with no surrounding erythema, there is no erythema there is a dressing in place to the right posterior lower extremity there is no surrounding erythema or tenderness, the dressing was taken down there is no purulent discharge Neuro: Alert and oriented x3 Skin: Warm & dry;No appreciable rash on exposed skin Psych: Mood affect normal, normal memory normal judgment. Progress Differential Diagnosis: cellulitis, compartment syndrome, contusion, dislocation , gout, sprain, tendon injury Plan of Care: Current Medications Sig/Macy Start time Last Medication Dose Stop Time Status Admin Diphenhydramine HCl 50 MG ONCE ONE 10/23 2329 UNVr (Benadryl) 10/23 2330 Ketorolac 30 MG ONE ONE 10/23 2329 UNVr Tromethamine 10/23 2330 (Toradol) Advise follow-up with pain management and her spray gun operator whom she goes to the wound care center tomorrow. Patient clinically appears well and nontoxic appearing medicated with Toradol 30 mg IM Benadryl 50 mg IM (DONNY WEBB) Departure Departure Time of Disposition: 2328 Disposition: HOME OR SELF CARE Condition: Stable Clinical Impression Primary Impression: Chronic leg pain Referrals: SAL LOERA APRN (PCP/Family) Additional Instructions: Follow-up with your primary care physician, spray gun operator Dr. Zayas and pain management Departure Forms: Customer Survey General Discharge Information
== END 2016-10-23 23:54 ==
LOC: ERH 23:11
DX: M79.605 Pain in left leg (principal)
CPT/HCPCS: 96372; J1200; J1885

== ENCOUNTER 2016-10-24 17:48 | Emergency (ER) | payer OTHER ==
[~2016-10-24] VITALS: Ht 175.3 cm; Wt 120.7 kg
[2016-10-24 18:00] VITALS: BP 153/82
--- NOTE | 2016-10-24 18:58 | ED UPPER/LOWER EXTREMITY COMPL ---
History of Present Illness General Chief Complaint: Lower Extremity Problems Stated Complaint: LEG PAIN Source: patient Exam Limitations: no limitations Vital Signs & Intake/Output Vital Signs & Intake/Output Vital Signs Date Time Temp Pulse Resp B/P Pulse O2 O2 Flow FiO2 Ox Delivery Rate 10/24 1800 97.0 83 20 153/82 97 Room Air Allergies Coded Allergies: NO KNOWN ALLERGIES (09/26/16) Reconcile Medications Doxycycline Hyclate 100 MG CAPSULE 1 CAP PO BID skin infection Duloxetine Hydrochloride (Cymbalta) 30 MG CAPSULE.DR 1 CAP PO DAILY NEUROPATHY (Reported) Gabapentin 300 MG CAPSULE 2 CAP PO TID NEUROPATHY (Reported) Glimepiride 4 MG TABLET 1 TAB PO DAILY DM (Reported) Ibuprofen 600 MG TABLET 1 TAB PO Q6-PRN PRN leg pain with food Insulin Glargine,Hum.rec.anlog (Lantus Solostar) 100 UNIT/1 ML INSULN.PEN 25 UNIT SC QAM DIABETES (Reported) Insulin Lispro (Humalog Kwikpen U-100) 100 UNIT/ML INSULN.PEN 1 UNITS SC TIDAC DM (Reported) SLIDING SCALE Ketorolac Tromethamine 10 MG TABLET 1 TAB PO Q6P PRN PAIN Ketorolac Tromethamine 10 MG TABLET 1 TAB PO Q6P PRN PAIN Lidocaine HCl (Lidocaine) 5 % OINT...G. PAIN (Reported) Lorazepam (Ativan) 1 MG TABLET 1 TAB PO BID PRN ANXIETY/NEUROPATHY SIX TABS... [id number] Metformin HCl (Glucophage) 1,000 MG TABLET 1 TAB PO BID DIABETES (Reported) Metoprolol Succinate 50 MG TAB.ER.24H 1 TAB PO DAILY HTN (Reported) Oxycodone HCl 10 MG TABLET 1 TAB PO TID PRN LEG PAIN Oxycodone HCl/Acetaminophen (Percocet 5-325 MG Tablet) 5 MG-325 MG TABLET 1 TAB PO 4XDP PRN PAIN six...[id number] Pantoprazole Sodium 40 MG TABLET.DR 1 TAB PO DAILY GERD (Reported) Prazosin Hydrochloride (Minipress) 1 MG CAPSULE 1 CAP PO QPM NIGHTMARES ( Reported) Quetiapine Fumarate 400 MG TABLET 1 TAB PO QPM SLEEP (Reported) Triage Note: BIBA FROM HOME, REQUESTS A SHOT OF TORADOL AND BENADRYL FOR CHRONIC LEG PAIN. SEEN HERE LAST PM FOR SAME. Triage Nurses Notes Reviewed? yes Onset: Abrupt Duration: week(s):, constant, continues in ED Timing: recent history Severity: moderate, severe Pain/Injury Location: Bilateral: Leg. No Modifying Factors: none HPI: 61-year-old female comes into emergency room with bilateral leg pain. Patient has been seen here 9 times this month for her leg pain. Patient is due to be getting in with pain management. Sharp throbbing. No trauma. Denies any other associated symptoms. (SOWMYA HERNANDEZ) Past History Travel History Traveled to [place] past 21 day No Medical History Any Pertinent Medical History? 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 FH: CAD (coronary artery disease) FH: myocardial infarction relation unknown (HTN, Diabetee, Bipolar disorder and Depression). Hx Contributory? No (SOWMYA HERNANDEZ) Review of Systems Review of Systems Constitutional: Reports: no symptoms. EENTM: Reports: no symptoms. Respiratory: Reports: no symptoms. Cardiovascular: Reports: no symptoms. Gastrointestinal/Abdominal: Reports: no symptoms. Genitourinary: Reports: no symptoms. Musculoskeletal: Reports: see HPI. Skin: Reports: no symptoms. Neurological/Psychological: Reports: no symptoms. Hematologic/Endocrine: Reports: no symptoms. Immunological: Reports: no symptoms. All Other Systems: Reviewed and Negative (SOWMYA HERNANDEZ) Physical Exam Physical Exam General Appearance: well developed/nourished Head: atraumatic Eyes: Bilateral: normal appearance. Ears, Nose, Throat: normal ENT inspection, hearing grossly normal Neck: normal inspection Cardiovascular/Respiratory: no respiratory distress Back: normal inspection Foot Left: partial amputation, no erythema, no warmth, no discharge, no signs of infection, Foot Right: normal inspection, normal range of motion, no erythema, no warmth, no signs of infection Neurologic/Tendon: normal sensation, responds to pain, no evidence tendon injury , no pulse deficit Skin: intact, normal color, warm/dry Lymphatic: no anterior cervical pat (SOWMYA HERNANDEZ) Progress Differential Diagnosis: arterial insufficiency, cellulitis, CHF, compartment syndrome, contusion, dislocation, DVT, fracture, gout, septic arthritis, sprain, tendon injury Plan of Care: Current Medications Sig/Macy Start time Last Medication Dose Stop Time Status Admin Diphenhydramine HCl 25 MG ONCE ONE 10/24 1899 UNVr (Benadryl) 10/24 1900 Ketorolac 15 MG ONE ONE 10/24 1899 UNVr Tromethamine 10/24 1900 (Toradol) Comments: 10/24/2016 7:15:15 PM I explained to the patient she cannot keep getting Toradol shots. Patient needs to follow-up with pain management. Return if any other concerns. Clinically looks well. Nontoxic-appearing. No different complaints after normal baseline (SOWMYA HERNANDEZ) Departure Departure Disposition: HOME OR SELF CARE Condition: Stable Clinical Impression Primary Impression: Chronic leg pain Referrals: SAL LOERA APRN (PCP/Family) Additional Instructions: Follow-up with pain management. Return if any other concerns. It is unsafe for you to keep getting Toradol shots here in the emergency room. Please go over all results of today's visit with your primary care doctor. Contact your primary care doctor to let them know you were here in the emergency room. There may be nonspecific findings which may not be related to your visit today here in the emergency room but may require further evaluation and chronic monitoring by your primary care doctor. If you had a laceration today the chance of foreign body always remains. You should follow-up with your primary care doctor for recheck in 3-5 days for a wound check. If you had an x-ray done there is a chance that a fracture could have been missed on initial read and you should follow-up with your primary care doctor for repeat x-rays if symptoms persist. If your blood pressure was elevated here in the emergency room please have rechecked by her primary care doctor within the next 48 hours by your primary care doctor. If you were prescribed a narcotic here in the emergency room or any type of controlled substances you're not allowed to drive while taking this medication or operate any type of heavy machinery. Narcotics can make you feel lightheaded dizziness nausea and can cause constipation. You may need to pickers material handlers a stool softener. Thank you for choosing [facility] emergency room. Please return to the emergency room immediately if you have any other concerns worsening of symptoms. Departure Forms: Customer Survey General Discharge Information (SOWMYA HERNANDEZ) PA/REFERRAL NURSE Co-Sign Statement Statement: ED Attending supervision documentation- [] I saw and evaluated the patient. I have also reviewed all the pertinent lab results and diagnostic results. I agree with the findings and the plan of care as documented in the PA's/REFERRAL NURSE's documentation. [x] I have reviewed the ED Record and agree with the PA's/REFERRAL NURSE's documentation. [] Additions or exceptions (if any) to the PAs/REFERRAL NURSE's note and plan are summarized below: [] (DEBO NOBLE DO)
[2016-10-25] MEDS ORDERED: TRAMADOL HCL E100 MG PO (21:16)
== END 2016-10-24 19:40 ==
LOC: ERH 17:48
DX: G89.29 Other chronic pain (principal); M79.604 Pain in right leg; M79.605 Pain in left leg
CPT/HCPCS: 96372; J1200; J1885

== ENCOUNTER 2016-10-25 20:04 | Emergency (ER) | payer OTHER ==
[~2016-10-25] VITALS: Ht 176.5 cm; Wt 120.7 kg
[2016-10-25 20:19] VITALS: BP 146/78
[2016-10-25] MEDS ORDERED: TRAMADOL HCL E100 MG PO (21:16)
--- NOTE | 2016-10-25 21:18 | ED UPPER/LOWER EXTREMITY COMPL ---
History of Present Illness General Chief Complaint: Lower Extremity Problems Stated Complaint: BIBA FOR IGGY LEG PAIN (L>R) Source: patient, old records Exam Limitations: no limitations Vital Signs & Intake/Output Vital Signs & Intake/Output Vital Signs Date Time Temp Pulse Resp B/P Pulse O2 O2 Flow FiO2 Ox Delivery Rate 10/25 2106 98 Room Air 10/25 2018 97.5 80 20 146/78 95 Room Air Allergies Coded Allergies: NO KNOWN ALLERGIES (10/25/16) Reconcile Medications Doxycycline Hyclate 100 MG CAPSULE 1 CAP PO BID skin infection Duloxetine Hydrochloride (Cymbalta) 30 MG CAPSULE.DR 1 CAP PO DAILY NEUROPATHY (Reported) Gabapentin 300 MG CAPSULE 2 CAP PO TID NEUROPATHY (Reported) Glimepiride 4 MG TABLET 1 TAB PO DAILY DM (Reported) Ibuprofen 600 MG TABLET 1 TAB PO Q6-PRN PRN leg pain with food Insulin Glargine,Hum.rec.anlog (Lantus Solostar) 100 UNIT/1 ML INSULN.PEN 25 UNIT SC QAM DIABETES (Reported) Insulin Lispro (Humalog Kwikpen U-100) 100 UNIT/ML INSULN.PEN 1 UNITS SC TIDAC DM (Reported) SLIDING SCALE Ketorolac Tromethamine 10 MG TABLET 1 TAB PO Q6P PRN PAIN Ketorolac Tromethamine 10 MG TABLET 1 TAB PO Q6P PRN PAIN Lidocaine HCl (Lidocaine) 5 % OINT...G. PAIN (Reported) Lorazepam (Ativan) 1 MG TABLET 1 TAB PO BID PRN ANXIETY/NEUROPATHY SIX TABS... [id number] Metformin HCl (Glucophage) 1,000 MG TABLET 1 TAB PO BID DIABETES (Reported) Metoprolol Succinate 50 MG TAB.ER.24H 1 TAB PO DAILY HTN (Reported) Oxycodone HCl 10 MG TABLET 1 TAB PO TID PRN LEG PAIN Oxycodone HCl/Acetaminophen (Percocet 5-325 MG Tablet) 5 MG-325 MG TABLET 1 TAB PO 4XDP PRN PAIN six...[id number] Pantoprazole Sodium 40 MG TABLET.DR 1 TAB PO DAILY GERD (Reported) Prazosin Hydrochloride (Minipress) 1 MG CAPSULE 1 CAP PO QPM NIGHTMARES ( Reported) Quetiapine Fumarate 400 MG TABLET 1 TAB PO QPM SLEEP (Reported) Tramadol HCl (Tramadol HCl ER) 100 MG TAB.ER.24H 1 TAB PO DAILY pain Triage Note: TRIAGE: PT BERTA FROM HOME C/C BILATERAL LEG PAIN (L > R) CHRONIC X YEARS. HAS PAIN FROM FEET TO KNEES, STATES "IT GOES UP AND DOWN" AND "I WANT TO GET INTO THE PAIN CENTER IN [place]". TAKES "MOTRIN SOMETIMES" BUT IT DOESN'T HELP. HX LLE TOE AMPUTATION. Triage Nurses Notes Reviewed? yes HPI: 61-year-old female with history of chronic pain in the B LE, neuropathy who is been seen numerous times in this emergency room over the past 2 months and is well-known to this institution for chronic lower extremity pain. The patient presents today complaining of an exacerbation of her left lower extremity chronic pain and numbness for which she has requested on multiple occasions a shot of Toradol and Benadryl. There is been no recent new injury. No fever no chills. The patient denies any new complaints no chest pain no shortness of breath or no modifying factors or associated symptoms. She has a visiting nurse that gives her her medications and she is seen at [facility] several times per week. This is her 11th visit this month for same (TROY BENÍTEZ) Past History Travel History Traveled to [place] past 21 day No Medical History Any Pertinent Medical History? 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 FH: CAD (coronary artery disease) FH: myocardial infarction relation unknown (HTN, Diabetee, Bipolar disorder and Depression). Hx Contributory? No (TROY BENÍTEZ) Review of Systems Review of Systems Constitutional: Reports: see HPI. EENTM: Reports: no symptoms. Respiratory: Reports: no symptoms. Cardiovascular: Reports: no symptoms. Gastrointestinal/Abdominal: Reports: no symptoms. Genitourinary: Reports: no symptoms. Skin: Reports: no symptoms. Hematologic/Endocrine: Reports: no symptoms. Immunological: Reports: no symptoms. All Other Systems: Reviewed and Negative (TROY BENÍTEZ) Physical Exam Physical Exam General Appearance: well developed/nourished Comments: Gen.: Well-nourished, well-developed, no acute respiratory distress. Head: Normocephalic, atraumatic. Eyes: Normal inspection bilaterally Ears: Normal inspection bilaterally Nose: Normal inspection, nasal cannula in place Throat/mouth : Moist mucosa Neck: Supple, full range of motion, no goiter Heart: Regular rate and rhythm Lungs: Quiet respirations Back: Normal range of motion Extremities: Left lower extremity: Partial foot amputation with no warmth or significant erythema. Right lower extremity: Chronic wound of the posteromedial calf with no surrounding erythema or warmth. Small healing ulceration of the dorsal aspect of the right second toe. Neurologic: Cranial nerves grossly intact, speech is clear Skin: warm and dry Psychiatric: Calm, cooperative, no apparent delusions or hallucinations (TROY BENÍTEZ) Progress Differential Diagnosis: arterial insufficiency, cellulitis, CHF, compartment syndrome, contusion, dislocation, DVT, fracture, gout, septic arthritis, sprain, tendon injury, drug-seeking behavior Plan of Care: Current Medications Sig/Macy Start time Last Medication Dose Stop Time Status Admin Tramadol HCl 50 MG ONCE ONE 10/25 2114 UNVr (Ultram) 10/25 2115 Comments: I had a long discussion with patient regarding her frequent visits to the emergency department and abuse of the EMS and emergency department for chronic pain reasons. I made it clear to her that if there is an acute issue that she requires immediate medical care she should present to the emergency department by any means necessary without hesitation. However she should not continue to come to the ER for chronic pain for a shot of Toradol and Benadryl is inappropriate use of the emergency department. Patient's primary care doctor will not prescribe her pain medication because she had cocaine in her urine and she is awaiting a pain management appointment in 1 month's time in [place]. I have had this discussion with the patient in the past several times yet she continues to come to the ER. I will give her a tablet of tramadol now [address] her on a long-acting tramadol 100 mg daily given a prescription for 2 weeks and this will hopefully help the patient's pain enough that she does not feel as though she requires emergency room visits for her chronic condition. She understands and agrees with plan. her visiting nurse will get her medications for her and insure she takes them as scheduled. (TROY BENÍTEZ) Departure Departure Disposition: HOME OR SELF CARE Condition: Stable Clinical Impression Primary Impression: Chronic pain Qualifiers: Chronic pain type: chronic pain syndrome Qualified Code: G89.4 - Chronic pain syndrome Referrals: SAL LOERA APRN (PCP/Family) Additional Instructions: Take long-acting tramadol once daily for your pain. Follow-up pain management next month as scheduled Departure Forms: Customer Survey General Discharge Information Prescriptions: Current Visit Scripts Tramadol HCl (Tramadol HCl ER) 1 TAB PO DAILY #14 TAB (TROY BENÍTEZ) PA/SECURITIES ADVISER Co-Sign Statement Statement: ED Attending supervision documentation- [] I saw and evaluated the patient. I have also reviewed all the pertinent lab results and diagnostic results. I agree with the findings and the plan of care as documented in the PA's/SECURITIES ADVISER's documentation. x I have reviewed the ED Record and agree with the PA's/SECURITIES ADVISER's documentation. [] Additions or exceptions (if any) to the PAs/SECURITIES ADVISER's note and plan are summarized below: [] (ANGELI OSBORN,TRINH)
== END 2016-10-25 21:22 ==
LOC: ERH 20:04
DX: G89.29 Other chronic pain (principal)

== ENCOUNTER 2016-11-02 11:26 | Emergency (ER) | payer OTHER ==
[~2016-11-02] VITALS: Ht 176.5 cm; Wt 120.7 kg
[~2016-11-02 11:26] MED LIST changes: +TRAMADOL HCL E100 MG PO
[2016-11-02 12:15] VITALS: BP 172/75
--- NOTE | 2016-11-02 12:45 | ED ANKLE/FOOT INJURY COMPLAINT ---
History of Present Illness General Chief Complaint: General Adult Stated Complaint: PAIN MEDS Source: patient, old records Exam Limitations: no limitations Vital Signs & Intake/Output Vital Signs & Intake/Output Vital Signs Date Time Temp Pulse Resp B/P Pulse O2 O2 Flow FiO2 Ox Delivery Rate 11/02 1300 Room Air Room Air 11/02 1215 97.7 81 20 172/75 98 Room Air Room Air Allergies Coded Allergies: NO KNOWN ALLERGIES (10/25/16) Reconcile Medications Doxycycline Hyclate 100 MG CAPSULE 1 CAP PO BID skin infection Duloxetine Hydrochloride (Cymbalta) 30 MG CAPSULE.DR 1 CAP PO DAILY NEUROPATHY (Reported) Gabapentin 300 MG CAPSULE 2 CAP PO TID NEUROPATHY (Reported) Glimepiride 4 MG TABLET 1 TAB PO DAILY DM (Reported) Ibuprofen 600 MG TABLET 1 TAB PO Q6-PRN PRN leg pain with food Insulin Glargine,Hum.rec.anlog (Lantus Solostar) 100 UNIT/1 ML INSULN.PEN 25 UNIT SC QAM DIABETES (Reported) Insulin Lispro (Humalog Kwikpen U-100) 100 UNIT/ML INSULN.PEN 1 UNITS SC TIDAC DM (Reported) SLIDING SCALE Ketorolac Tromethamine 10 MG TABLET 1 TAB PO Q6P PRN PAIN Ketorolac Tromethamine 10 MG TABLET 1 TAB PO Q6P PRN PAIN Lidocaine HCl (Lidocaine) 5 % OINT...G. PAIN (Reported) Lorazepam (Ativan) 1 MG TABLET 1 TAB PO BID PRN ANXIETY/NEUROPATHY SIX TABS... [id number] Metformin HCl (Glucophage) 1,000 MG TABLET 1 TAB PO BID DIABETES (Reported) Metoprolol Succinate 50 MG TAB.ER.24H 1 TAB PO DAILY HTN (Reported) Oxycodone HCl 10 MG TABLET 1 TAB PO TID PRN LEG PAIN Oxycodone HCl/Acetaminophen (Percocet 5-325 MG Tablet) 5 MG-325 MG TABLET 1 TAB PO 4XDP PRN PAIN six...[id number] Pantoprazole Sodium 40 MG TABLET.DR 1 TAB PO DAILY GERD (Reported) Prazosin Hydrochloride (Minipress) 1 MG CAPSULE 1 CAP PO QPM NIGHTMARES ( Reported) Quetiapine Fumarate 400 MG TABLET 1 TAB PO QPM SLEEP (Reported) Tramadol HCl (Tramadol HCl ER) 100 MG TAB.ER.24H 1 TAB PO DAILY pain Triage Note: PT TO ED "I RAN OUT OF MY PAIN MEDS" "I HAVE AN APPT WITH A NEW PAIN CLINIC IN [place] ON SATURDAY". Triage Nurses Notes Reviewed? yes HPI: 61-year-old female comes into emergency room reporting that she has her chronic leg pain and she is here to be medicated. Patient reports that she has an appointment with pain management this Saturday. Patient reports that she ran out of her Percocet at home and wants toward all and Benadryl. Patient has been approximately here 30 times in the past 2 months. Patient comes in with continued complaints of her leg pain and feet pain bilaterally. Patient has been evaluated and worked up for this in the past. Patient reports that she does not want to follow-up with her primary care doctor. Patient has been told repeated amount of time that she needs a follow-up with pain management as well as her primary care doctor. Patient denies any new symptoms in regards to her pain. Pain is exactly how it has been chronically. (SOWMYA HERNANDEZ) Past History Travel History Traveled to [place] past 21 day No Medical History Any Pertinent Medical History? 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 LINER/Reproductive: BILATERAL OOPHERECTOMY Other Medical Hx: hep B, osteomyelitis, peripheral vascular disease History of MRSA: Yes History of VRE: No History of CDIFF: No Surgical History Surgical History: LEFT FOOT TRANSMETATARSAL AMPUTATION, VASCULAR PROCEDURE LOWER LEGS status post lower extremity revascularization Psychosocial History Who do you live with Patient/Self Services at Home Home Health Aide, Nursing What is your primary language Pakistani Tobacco Use: Current Daily Use Daily Tobacco Use Amount/Type: => 5 Cigarettes daily ETOH Use: denies use Illicit Drug Use: denies illicit drug use Family History Family History, If Any: MOTHER (PVD, always had purple feet). FH: CAD (coronary artery disease) FH: myocardial infarction relation unknown (HTN, Diabetee, Bipolar disorder and Depression). Hx Contributory? No (SOWMYA HERNANDEZ) Review of Systems Review of Systems Constitutional: Reports: no symptoms. EENTM: Reports: no symptoms. Respiratory: Reports: no symptoms. Cardiovascular: Reports: no symptoms. GI: Reports: no symptoms. Genitourinary: Reports: no symptoms. Musculoskeletal: Reports: see HPI. Skin: Reports: see HPI. Neurological/Psychological: Reports: no symptoms. Hematologic/Endocrine: Reports: no symptoms. Immunologic/Allergic: Reports: no symptoms. All Other Systems: Reviewed and Negative (SOWMYA HERNANDEZ) Physical Exam Physical Exam General Appearance: well developed/nourished Head: atraumatic Eyes: Bilateral: normal appearance. Ears, Nose, Throat: normal ENT inspection, hearing grossly normal Neck: normal inspection Cardiovascular/Respiratory: no respiratory distress Leg/Knee/Thigh Left: normal inspection Leg/Knee/Thigh Right: normal inspection Ankle Left: normal inspection Ankle Right: normal inspection Psychiatric: awake, alert, oriented x 3 Skin: intact, normal color, warm/dry (SOWMYA HERNANDEZ) Progress Differential Diagnosis: DVT, CHF, arterial insufficiency, cellulitis, septic arthritis, gout, fracture, dislocation, sprain, contusion, compartmental syndrome Plan of Care: 11/02/2016 12:50:31 PM Patient was told that she will no longer get IM injections of Toradol here in the emergency room or [facility]. Patient has gotten repeated doses of Toradol which could be detrimental to her kidneys. Patient was offered some oral medication of ibuprofen or Tylenol but she declined. Patient became very belligerent after she was told that she would not be getting any shots for medications. Patient called me quote " a fucking asshole" repeatedly in the emergency room. Patient stormed out before she could get her discharge instructions. Patient was screaming and being belligerent in the hallway. Patient was cursing the entire time. As stated before patient has been seen here 30 times in the past 2 months. There is no acute changes in regards to her baseline function. No evidence of infection. This is a chronic issue for the patient. (SOWMYA HERNANDEZ) Departure Departure Disposition: HOME OR SELF CARE Condition: Stable Clinical Impression Primary Impression: Chronic leg pain Referrals: SAL LOERA APRN (PCP/Family) Additional Instructions: Patient eloped before discharge instructions. Patient declined any type of oral medications such as Toradol to go home with. Patient declined Motrin here in the emergency room. Please go over all results of today's visit with your primary care doctor. Contact your primary care doctor to let them know you were here in the emergency room. There may be nonspecific findings which may not be related to your visit today here in the emergency room but may require further evaluation and chronic monitoring by your primary care doctor. If you had a laceration today the chance of foreign body always remains. You should follow-up with your primary care doctor for recheck in 3-5 days for a wound check. If you had an x-ray done there is a chance that a fracture could have been missed on initial read and you should follow-up with your primary care doctor for repeat x-rays if symptoms persist. If your blood pressure was elevated here in the emergency room please have rechecked by her primary care doctor within the next 48 hours by your primary care doctor. If you were prescribed a narcotic here in the emergency room or any type of controlled substances you're not allowed to drive while taking this medication or operate any type of heavy machinery. Narcotics can make you feel lightheaded dizziness nausea and can cause constipation. You may need to orange picker machine operator a stool softener. Thank you for choosing [facility] emergency room. Please return to the emergency room immediately if you have any other concerns worsening of symptoms. Departure Forms: Customer Survey General Discharge Information (SOWMYA HERNANDEZ) PA/VP DESIGN Co-Sign Statement Statement: ED Attending supervision documentation- [] I saw and evaluated the patient. I have also reviewed all the pertinent lab results and diagnostic results. I agree with the findings and the plan of care as documented in the PA's/VP DESIGN's documentation. [X] I have reviewed the ED Record and agree with the PA's/VP DESIGN's documentation. [] Additions or exceptions (if any) to the PAs/VP DESIGN's note and plan are summarized below: [] (DEBO NOBLE DO
== END 2016-11-02 13:00 ==
LOC: ERH 11:26
DX: G89.29 Other chronic pain (principal); M79.604 Pain in right leg; M79.605 Pain in left leg
CPT/HCPCS: 99282

== ENCOUNTER 2016-11-04 15:34 | Emergency (ER) | payer OTHER ==
[~2016-11-04] VITALS: Ht 172.7 cm; Wt 95.3 kg
[2016-11-04 15:48] VITALS: BP 133/60
--- NOTE | 2016-11-04 16:36 | ED UPPER/LOWER EXTREMITY COMPL ---
History of Present Illness General Chief Complaint: Lower Extremity Problems Stated Complaint: LOW EXTREM PAIN Source: patient Exam Limitations: no limitations Vital Signs & Intake/Output Vital Signs & Intake/Output Vital Signs Date Time Temp Pulse Resp B/P Pulse O2 O2 Flow FiO2 Ox Delivery Rate 11/04 1637 98 11/04 1548 65 18 133/60 97 Room Air Reconcile Medications Doxycycline Hyclate 100 MG CAPSULE 1 CAP PO BID skin infection Doxycycline Hyclate 100 MG TABLET 1 TAB PO BID cellulitis Duloxetine Hydrochloride (Cymbalta) 30 MG CAPSULE.DR 1 CAP PO DAILY NEUROPATHY (Reported) Gabapentin 300 MG CAPSULE 2 CAP PO TID NEUROPATHY (Reported) Glimepiride 4 MG TABLET 1 TAB PO DAILY DM (Reported) Ibuprofen 600 MG TABLET 1 TAB PO Q6-PRN PRN leg pain with food Insulin Glargine,Hum.rec.anlog (Lantus Solostar) 100 UNIT/1 ML INSULN.PEN 25 UNIT SC QAM DIABETES (Reported) Insulin Lispro (Humalog Kwikpen U-100) 100 UNIT/ML INSULN.PEN 1 UNITS SC TIDAC DM (Reported) SLIDING SCALE Ketorolac Tromethamine 10 MG TABLET 1 TAB PO Q6P PRN PAIN Ketorolac Tromethamine 10 MG TABLET 1 TAB PO Q6P PRN PAIN Lidocaine HCl (Lidocaine) 5 % OINT...G. PAIN (Reported) Lorazepam (Ativan) 1 MG TABLET 1 TAB PO BID PRN ANXIETY/NEUROPATHY SIX TABS... [id number] Metformin HCl (Glucophage) 1,000 MG TABLET 1 TAB PO BID DIABETES (Reported) Metoprolol Succinate 50 MG TAB.ER.24H 1 TAB PO DAILY HTN (Reported) Oxycodone HCl 10 MG TABLET 1 TAB PO TID PRN LEG PAIN Oxycodone HCl/Acetaminophen (Percocet 5-325 MG Tablet) 5 MG-325 MG TABLET 1 TAB PO 4XDP PRN PAIN six...[id number] Pantoprazole Sodium 40 MG TABLET.DR 1 TAB PO DAILY GERD (Reported) Prazosin Hydrochloride (Minipress) 1 MG CAPSULE 1 CAP PO QPM NIGHTMARES ( Reported) Quetiapine Fumarate 400 MG TABLET 1 TAB PO QPM SLEEP (Reported) Tramadol HCl (Tramadol HCl ER) 100 MG TAB.ER.24H 1 TAB PO DAILY pain Triage Nurses Notes Reviewed? yes Onset: CHRONIC Duration: constant Timing: recent history No Modifying Factors: none HPI: 61-year-old female comes into emergency room with chronic lower extremity pain. Patient has been seen here many times in the past months. Patient reports that she has some redness to her right lower leg today. Patient has been going to the wound care center. Patient requesting Toradol and Benadryl for pain. No flulike symptoms. No other focal complaints or symptoms. (SOWMYA HERNANDEZ) Allergies Coded Allergies: NO KNOWN ALLERGIES (11/05/16) (ALLEN OSBORN,JONNA) Past History Travel History Traveled to [place] past 21 day No Medical History Any Pertinent Medical History? 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 FH: CAD (coronary artery disease) FH: myocardial infarction relation unknown (HTN, Diabetee, Bipolar disorder and Depression). Hx Contributory? No (SOWMYA HERNANDEZ) Review of Systems Review of Systems Constitutional: Reports: no symptoms. EENTM: Reports: no symptoms. Respiratory: Reports: no symptoms. Cardiovascular: Reports: no symptoms. Gastrointestinal/Abdominal: Reports: no symptoms. Genitourinary: Reports: no symptoms. Musculoskeletal: Reports: no symptoms. Skin: Reports: see HPI. Neurological/Psychological: Reports: no symptoms. Hematologic/Endocrine: Reports: no symptoms. Immunological: Reports: no symptoms. All Other Systems: Reviewed and Negative (SOWMYA HERNANDEZ) Physical Exam Physical Exam General Appearance: well developed/nourished, mild distress Head: atraumatic Eyes: Bilateral: normal appearance, EOMI. Ears, Nose, Throat: normal ENT inspection, hearing grossly normal Neck: normal inspection Cardiovascular/Respiratory: no respiratory distress Back: normal inspection Leg Right: OPEN WOUND RIGHT LOWER 70, SOME MILD ERYTHEMA, Neurologic/Tendon: normal sensation, normal motor functions, normal tendon functions, responds to pain, no evidence tendon injury, no pulse deficit Skin: intact, normal color, warm/dry Lymphatic: no anterior cervical pat (RENA BYRD,SOMWYA) Progress Differential Diagnosis: cellulitis, CHF, compartment syndrome, contusion, dislocation, gout, septic arthritis, sprain, tendon injury Plan of Care: Current Medications Sig/Macy Start time Last Medication Dose Stop Time Status Admin Diphenhydramine HCl 25 MG ONCE ONE 11/04 1644 UNVr (Benadryl) 11/04 1645 Doxycycline Hyclate 100 MG ONCE ONE 11/04 1644 UNVr (Vibramycin) 11/04 1645 Ketorolac 60 MG ONCE ONE 11/04 1644 UNVr Tromethamine 11/04 1645 (Toradol) Departure Departure Disposition: HOME OR SELF CARE Condition: Stable Clinical Impression Primary Impression: Chronic leg pain Secondary Impressions: Open wound of right lower extremity Referrals: SAL LOERA APRN (PCP/Family) Additional Instructions: Take Keflex as prescribed. Follow-up with wound care center. Return if any other concerns worsening symptoms. Please go over all results of today's visit with your primary care doctor. Contact your primary care doctor to let them know you were here in the emergency room. There may be nonspecific findings which may not be related to your visit today here in the emergency room but may require further evaluation and chronic monitoring by your primary care doctor. If you had a laceration today the chance of foreign body always remains. You should follow-up with your primary care doctor for recheck in 3-5 days for a wound check. If you had an x-ray done there is a chance that a fracture could have been missed on initial read and you should follow-up with your primary care doctor for repeat x-rays if symptoms persist. If your blood pressure was elevated here in the emergency room please have rechecked by her primary care doctor within the next 48 hours by your primary care doctor. If you were prescribed a narcotic here in the emergency room or any type of controlled substances you're not allowed to drive while taking this medication or operate any type of heavy machinery. Narcotics can make you feel lightheaded dizziness nausea and can cause constipation. You may need to berry picker a stool softener. Thank you for choosing [facility] emergency room. Please return to the emergency room immediately if you have any other concerns worsening of symptoms. Departure Forms: Customer Survey General Discharge Information Prescriptions: Current Visit Scripts Doxycycline Hyclate 1 TAB PO BID #14 TAB Comments 11/04/2016 6:27:33 PM Fall up with wound doctor. Return if any other concerns worsening symptoms. (RENA BYRD,SOWMYA) PA/WEB APPLICATION DEV SPECIALIST Co-Sign Statement Statement: ED Attending supervision documentation- [X] I saw and evaluated the patient. I have also reviewed all the pertinent lab results and diagnostic results. I agree with the findings and the plan of care as documented in the PA's/WEB APPLICATION DEV SPECIALIST's documentation. [X] I have reviewed the ED Record and agree with the PA's/WEB APPLICATION DEV SPECIALIST's documentation. [] Additions or exceptions (if any) to the PAs/WEB APPLICATION DEV SPECIALIST's note and plan are summarized below: [] (ALLEN OSBORN,JONNA)
[2016-11-04] MEDS ORDERED: DOXYCYCLINE HY100 M4 PO (16:38)
== END 2016-11-04 17:43 ==
LOC: ERH 15:34
DX: G89.29 Other chronic pain (principal); M79.604 Pain in right leg; S81.801A Unspecified open wound, right lower leg, initial encounter
CPT/HCPCS: 96372; J1200; J1885

== ENCOUNTER 2016-11-05 20:46 | Emergency (ER) | payer OTHER ==
[~2016-11-05] VITALS: Ht 176.5 cm; Wt 120.7 kg
[~2016-11-05 20:46] MED LIST changes: +DOXYCYCLINE HY100 M4 PO
--- NOTE | 2016-11-05 22:13 | ED UPPER/LOWER EXTREMITY COMPL ---
History of Present Illness General Chief Complaint: Lower Extremity Problems Stated Complaint: BIBA LEG PAIN Source: patient Exam Limitations: no limitations Vital Signs & Intake/Output Vital Signs & Intake/Output Vital Signs Date Time Temp Pulse Resp B/P Pulse O2 O2 Flow FiO2 Ox Delivery Rate 11/05 2111 97.2 99 20 131/78 96 Room Air Allergies Coded Allergies: NO KNOWN ALLERGIES (11/05/16) Reconcile Medications Doxycycline Hyclate 100 MG TABLET 1 TAB PO BID cellulitis Duloxetine Hydrochloride (Cymbalta) 30 MG CAPSULE.DR 1 CAP PO DAILY NEUROPATHY (Reported) Gabapentin 300 MG CAPSULE 2 CAP PO TID NEUROPATHY (Reported) Glimepiride 4 MG TABLET 1 TAB PO DAILY DM (Reported) Ibuprofen 600 MG TABLET 1 TAB PO Q6-PRN PRN leg pain with food Insulin Glargine,Hum.rec.anlog (Lantus Solostar) 100 UNIT/1 ML INSULN.PEN 25 UNIT SC QAM DIABETES (Reported) Insulin Lispro (Humalog Kwikpen U-100) 100 UNIT/ML INSULN.PEN 1 UNITS SC TIDAC DM (Reported) SLIDING SCALE Meloxicam 15 MG TABLET 1 TAB PO DAILY PAIN/INFLAMMATION (Reported) Metformin HCl (Glucophage) 1,000 MG TABLET 1 TAB PO BID DIABETES (Reported) Metoprolol Succinate 50 MG TAB.ER.24H 1 TAB PO DAILY HTN (Reported) Pantoprazole Sodium 40 MG TABLET.DR 1 TAB PO DAILY GERD (Reported) Prazosin Hydrochloride (Minipress) 1 MG CAPSULE 1 CAP PO QPM NIGHTMARES ( Reported) Quetiapine Fumarate 400 MG TABLET 1 TAB PO QPM SLEEP (Reported) Triage Note: TRIAGE: PT BIBA C/C CHRONIC BILATERAL LEG PAIN R/T WOUNDS AND L LOW BACK PAIN. STATES WAS SEEN AT PAIN MANAGEMENT TODAY AND WAS GIVEN PRESCRIPTION FOR PERCOCET BUT PRESCRIPTION DOESN'T START UNTIL TOMORROW. STATES THE L LOW BACK PAIN IS NEW X 2 DAYS, THINKS SHE SLEPT ON IT WRONG. THE BLE LEG PAIN IS CHRONIC. Triage Nurses Notes Reviewed? yes HPI: This patient is a 61-year-old female with a past medical history including chronic bilateral leg pain who presented to the emergency department today for worsening in her legs. She reported that the pain is up to a 10 out of 10. The pain is nonradiating and throbbing. The pain is constant and worse with ambulation. The patient reported that she was at pain management today and is starting to get her pain medication tomorrow. She is requesting IM Toradol and IM Benadryl. The patient denied any chest pain, difficult breathing, abdominal pain, or fevers. (MARGO DE PAZ PA-C) Past History Travel History Traveled to [place] past 21 day No Medical History Any Pertinent Medical History? 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: BILATERAL OOPHERECTOMY Other Medical Hx: hep B, osteomyelitis, peripheral vascular disease History of MRSA: Yes History of VRE: No History of CDIFF: No Surgical History Surgical History: LEFT FOOT TRANSMETATARSAL AMPUTATION, VASCULAR PROCEDURE LOWER LEGS status post lower extremity revascularization Psychosocial History Who do you live with Patient/Self Services at Home Home Health Aide, Nursing What is your primary language Swazi Tobacco Use: Current Daily Use Daily Tobacco Use Amount/Type: => 5 Cigarettes daily ETOH Use: denies use Illicit Drug Use: denies illicit drug use Family History Family History, If Any: MOTHER (PVD, always had purple feet). FH: CAD (coronary artery disease) FH: myocardial infarction relation unknown (HTN, Diabetee, Bipolar disorder and Depression). Hx Contributory? No (MARGO DE PAZ PA-C) Review of Systems Review of Systems Constitutional: Reports: no symptoms. EENTM: Reports: no symptoms. Respiratory: Reports: no symptoms. Cardiovascular: Reports: no symptoms. Gastrointestinal/Abdominal: Reports: no symptoms. Musculoskeletal: Reports: see HPI. Skin: Reports: no symptoms. Neurological/Psychological: Reports: no symptoms. All Other Systems: Reviewed and Negative (MARGO DE PAZ PA-C) Physical Exam Physical Exam General Appearance: well developed/nourished, no apparent distress, alert, awake Comments: Well-developed well-nourished person in no acute distress HEENT: Normal EENT exam, head normocephalic, moist mucous membranes Neck: Supple Back: Nontender, no CVA tenderness. Full range of motion Respiratory: No respiratory distress. Speaking in full sentences Bilateral lower extremities: Mild amount of erythema to bilateral lower extremities with no edema. Left foot status post amputation. Dorsalis pedis and posterior tibialis pulses 2+ and strong. No edema. No calf tenderness Neuro: Alert oriented x3, cranial nerves II through XII grossly intact. Skin: No appreciable rash on exposed skin, skin is warm and dry. Psych: Mood and affect is normal (MARGO DE PAZ PA-C) Progress Differential Diagnosis: arterial insufficiency, cellulitis, CHF, compartment syndrome, contusion, dislocation, DVT, fracture, gout, septic arthritis, sprain, tendon injury Plan of Care: Current Medications Sig/Macy Start time Last Medication Dose Stop Time Status Admin Diphenhydramine HCl 50 MG ONCE ONE 11/05 2214 AC (Benadryl) 11/05 2215 Ketorolac 60 MG ONCE ONE 11/05 2214 AC Tromethamine 11/05 2215 (Toradol) Departure Departure Disposition: HOME OR SELF CARE Condition: Stable Clinical Impression Primary Impression: Leg pain Qualifiers: Laterality: bilateral Qualified Codes: M79.604 - Pain in right leg; M79.605 - Pain in left leg Referrals: SAL LOERA APRN (PCP/Family) Additional Instructions: Follow-up with pain management as directed and take all previously prescribed medications as directed. Follow-up with your primary care physician. Departure Forms: Customer Survey General Discharge Information (MARGO DE PAZ PA-C) PA/ARROW POINT ATTACHER Co-Sign Statement Statement: ED Attending supervision documentation- [] I saw and evaluated the patient. I have also reviewed all the pertinent lab results and diagnostic results. I agree with the findings and the plan of care as documented in the PA's/ARROW POINT ATTACHER's documentation. [X] I have reviewed the ED Record and agree with the PA's/ARROW POINT ATTACHER's documentation. [] Additions or exceptions (if any) to the PAs/ARROW POINT ATTACHER's note and plan are summarized below: [] (LUCIANA OSBORN,DILCIA Romero) as documented in the PA's/ARROW POINT ATTACHER's documentation. [X] I have reviewed the ED Record and agree with the PA's/ARROW POINT ATTACHER's documentation. [] Additions or exceptions (if any) to the PAs/ARROW POINT ATTACHER's note and plan are summarized below: [] (LUCIANA OSBORN,DILCIA Romero)
[2016-11-05 22:48] VITALS: BP 138/78
== END 2016-11-05 23:21 ==
LOC: ERH 20:46
DX: M79.604 Pain in right leg (principal); M79.605 Pain in left leg
CPT/HCPCS: 96372; J1200; J1885

== ENCOUNTER 2016-11-07 00:47 | Emergency (ER) | payer OTHER ==
[2016-11-07 00:49] VITALS: BP 168/70
--- NOTE | 2016-11-07 00:51 | ED UPPER/LOWER EXTREMITY COMPL ---
History of Present Illness General Chief Complaint: Lower Extremity Problems Stated Complaint: LEG AND FOOT PAIN Source: patient, old records, EMS Exam Limitations: no limitations Vital Signs & Intake/Output Vital Signs & Intake/Output Vital Signs Date Time Temp Pulse Resp B/P Pulse O2 O2 Flow FiO2 Ox Delivery Rate 11/07 0049 98.9 100 18 168/70 95 Room Air Allergies Coded Allergies: NO KNOWN ALLERGIES (11/05/16) Reconcile Medications Doxycycline Hyclate 100 MG CAPSULE 1 CAP PO BID skin infection Doxycycline Hyclate 100 MG TABLET 1 TAB PO BID cellulitis Duloxetine Hydrochloride (Cymbalta) 30 MG CAPSULE.DR 1 CAP PO DAILY NEUROPATHY (Reported) Gabapentin 300 MG CAPSULE 2 CAP PO TID NEUROPATHY (Reported) Glimepiride 4 MG TABLET 1 TAB PO DAILY DM (Reported) Ibuprofen 600 MG TABLET 1 TAB PO Q6-PRN PRN leg pain with food Insulin Glargine,Hum.rec.anlog (Lantus Solostar) 100 UNIT/1 ML INSULN.PEN 25 UNIT SC QAM DIABETES (Reported) Insulin Lispro (Humalog Kwikpen U-100) 100 UNIT/ML INSULN.PEN 1 UNITS SC TIDAC DM (Reported) SLIDING SCALE Ketorolac Tromethamine 10 MG TABLET 1 TAB PO Q6P PRN PAIN Ketorolac Tromethamine 10 MG TABLET 1 TAB PO Q6P PRN PAIN Lidocaine HCl (Lidocaine) 5 % OINT...G. PAIN (Reported) Lorazepam (Ativan) 1 MG TABLET 1 TAB PO BID PRN ANXIETY/NEUROPATHY SIX TABS... [id number] Metformin HCl (Glucophage) 1,000 MG TABLET 1 TAB PO BID DIABETES (Reported) Metoprolol Succinate 50 MG TAB.ER.24H 1 TAB PO DAILY HTN (Reported) Oxycodone HCl 10 MG TABLET 1 TAB PO TID PRN LEG PAIN Oxycodone HCl/Acetaminophen (Percocet 5-325 MG Tablet) 5 MG-325 MG TABLET 1 TAB PO 4XDP PRN PAIN six...[id number] Pantoprazole Sodium 40 MG TABLET.DR 1 TAB PO DAILY GERD (Reported) Prazosin Hydrochloride (Minipress) 1 MG CAPSULE 1 CAP PO QPM NIGHTMARES ( Reported) Quetiapine Fumarate 400 MG TABLET 1 TAB PO QPM SLEEP (Reported) Tramadol HCl (Tramadol HCl ER) 100 MG TAB.ER.24H 1 TAB PO DAILY pain Triage Nurses Notes Reviewed? yes HPI: Patient presents with bilateral leg pain secondary to neuropathy. Multiple ED visits for the same. SHe saw pain management doctor yesterday who started her on new medications but the patient states that they are not helping. Patient states the only thing that helps the pain is when she comes to the emergency room and gets a shot of Toradol. The pain is had tenderness constant. Pain is burning in nature. There are no exacerbating factors. Pain is 10 out of 10. THE Pain is constant. Past History Travel History Traveled to [place] past 21 day No Medical History Any Pertinent Medical History? 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: BILATERAL OOPHERECTOMY Other Medical Hx: hep B, osteomyelitis, peripheral vascular disease History of MRSA: Yes History of VRE: No History of CDIFF: No Surgical History Surgical History: LEFT FOOT TRANSMETATARSAL AMPUTATION, VASCULAR PROCEDURE LOWER LEGS status post lower extremity revascularization Psychosocial History Who do you live with Patient/Self Services at Home Home Health Aide, Nursing What is your primary language Nepali Tobacco Use: Quit >30 days ago ETOH Use: denies use Illicit Drug Use: denies illicit drug use Family History Family History, If Any: MOTHER (PVD, always had purple feet). FH: CAD (coronary artery disease) FH: myocardial infarction relation unknown (HTN, Diabetee, Bipolar disorder and Depression). Hx Contributory? No Review of Systems Review of Systems Constitutional: Reports: no symptoms. Respiratory: Reports: no symptoms. Cardiovascular: Reports: no symptoms. Gastrointestinal/Abdominal: Reports: no symptoms. Neurological/Psychological: Reports: see HPI. Physical Exam Physical Exam General Appearance: well developed/nourished, alert, awake, moderate distress Eyes: Bilateral: PERRL, EOMI. Neck: normal inspection, supple Cardiovascular/Respiratory: normal breath sounds, regular rate/rhythm Neurologic/Tendon: normal motor functions Skin: ULCERS ON HER RIGHT LOWER LEG AND HER LEFT MIDFOOT ARE HEALING WELL. nO SIGNS OF INFECTION. Progress Differential Diagnosis: arterial insufficiency, cellulitis, NEUROPATHY Plan of Care: Current Medications Sig/Macy Start time Last Medication Dose Stop Time Status Admin Diphenhydramine HCl 25 MG ONCE ONE 11/07 99 UNVr (Benadryl) 11/07 100 Ketorolac 60 MG ONCE ONE 11/07 99 UNVr Tromethamine 11/07 100 (Toradol) Departure Departure Disposition: HOME OR SELF CARE Condition: Stable Clinical Impression Primary Impression: Neuropathy Referrals: SAL LOERA APRN (PCP/Family) Additional Instructions: FOLLOW UP WITH YOUR PAIN MANAGEMENT DOCTOR Departure Forms: Customer Survey General Discharge Information
[2016-11-08] MEDS ORDERED: MELOXICAM15 M1 PO (16:40)
== END 2016-11-07 00:58 ==
LOC: ERH 00:47
DX: G62.9 Polyneuropathy, unspecified (principal); S81.809A Unspecified open wound, unspecified lower leg, initial encounter; M79.606 Pain in leg, unspecified; G89.29 Other chronic pain; X58.XXXA Exposure to other specified factors, initial encounter
CPT/HCPCS: 96372; J1200; J1885

== ENCOUNTER 2016-11-07 19:52 | Emergency (ER) | payer OTHER ==
[2016-11-07 20:08] VITALS: BP 147/81
--- NOTE | 2016-11-07 20:58 | ED UPPER/LOWER EXTREMITY COMPL ---
History of Present Illness General Chief Complaint: General Adult Stated Complaint: BIBA FOR PAIN IN BOTH LEGS Source: patient Exam Limitations: no limitations Vital Signs & Intake/Output Vital Signs & Intake/Output Vital Signs Date Time Temp Pulse Resp B/P Pulse O2 O2 Flow FiO2 Ox Delivery Rate 11/07 2007 97.4 93 20 147/81 97 Allergies Coded Allergies: NO KNOWN ALLERGIES (11/05/16) Triage Note: PER PT SAW PMD TODAY BUT DOES NOT KNOW HIS NAME, REPORTS TOLD BY THAT DR THAT PAIN IS REAL AND PT GIVEN PERCOCET ONLY TID AND THAT DOES NOT WORK. Triage Nurses Notes Reviewed? yes Onset: chronic Timing: recent history Severity: moderate, severe Pain/Injury Location: Bilateral: Leg. No Modifying Factors: none HPI: 61-year-old female who is been seen here 35 times since August 302015 for her chronic leg pain comes in with acute exacerbation. Patient reports that she saw her vascular doctor and has a problem with blood supply and is in the process of trying to get surgery. Patient reports that he will not prescribe any pain medication and told her that the only way that she get pain medication is to keep go back to the emergency room. Sharp. Continuous. No fever chills. Currently on doxycycline. (SOWMYA HERNANDEZ) Reconcile Medications Doxycycline Hyclate 100 MG TABLET 1 TAB PO BID cellulitis Duloxetine Hydrochloride (Cymbalta) 30 MG CAPSULE.DR 1 CAP PO DAILY NEUROPATHY (Reported) Gabapentin 300 MG CAPSULE 2 CAP PO TID NEUROPATHY (Reported) Glimepiride 4 MG TABLET 1 TAB PO DAILY DM (Reported) Ibuprofen 600 MG TABLET 1 TAB PO Q6-PRN PRN leg pain with food Insulin Glargine,Hum.rec.anlog (Lantus Solostar) 100 UNIT/1 ML INSULN.PEN 25 UNIT SC QAM DIABETES (Reported) Insulin Lispro (Humalog Kwikpen U-100) 100 UNIT/ML INSULN.PEN 1 UNITS SC TIDAC DM (Reported) SLIDING SCALE Meloxicam 15 MG TABLET 1 TAB PO DAILY PAIN/INFLAMMATION (Reported) Metformin HCl (Glucophage) 1,000 MG TABLET 1 TAB PO BID DIABETES (Reported) Metoprolol Succinate 50 MG TAB.ER.24H 1 TAB PO DAILY HTN (Reported) Pantoprazole Sodium 40 MG TABLET.DR 1 TAB PO DAILY GERD (Reported) Prazosin Hydrochloride (Minipress) 1 MG CAPSULE 1 CAP PO QPM NIGHTMARES ( Reported) Quetiapine Fumarate 400 MG TABLET 1 TAB PO QPM SLEEP (Reported) (ALLEN OSBORN,JONNA) Past History Travel History Traveled to [place] past 21 day No Medical History Any Pertinent Medical History? 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 FH: CAD (coronary artery disease) FH: myocardial infarction relation unknown (HTN, Diabetee, Bipolar disorder and Depression). Hx Contributory? No (SOWMYA HERNANDEZ) Review of Systems Review of Systems Constitutional: Reports: no symptoms. EENTM: Reports: no symptoms. Respiratory: Reports: no symptoms. Cardiovascular: Reports: no symptoms. Gastrointestinal/Abdominal: Reports: no symptoms. Genitourinary: Reports: no symptoms. Musculoskeletal: Reports: see HPI. Skin: Reports: see HPI. Neurological/Psychological: Reports: no symptoms. Hematologic/Endocrine: Reports: no symptoms. Immunological: Reports: no symptoms. All Other Systems: Reviewed and Negative (SOWMYA HERNANDEZ) Physical Exam Physical Exam General Appearance: well developed/nourished Head: atraumatic Eyes: Bilateral: normal appearance. Ears, Nose, Throat: normal ENT inspection, hearing grossly normal Neck: normal inspection Cardiovascular/Respiratory: no respiratory distress Back: normal inspection Leg Left: open wound, no erythema, no discharge Leg Right: open wound, no discharge mild erythema, no warmth Neurologic/Tendon: responds to pain, no pulse deficit Skin: intact, normal color, warm/dry Lymphatic: no anterior cervical pat (SOWMYA HERNANDEZ) Progress Differential Diagnosis: arterial insufficiency, cellulitis, CHF, compartment syndrome, contusion, dislocation, DVT, fracture, gout, septic arthritis, sprain, tendon injury Plan of Care: Current Medications Sig/Macy Start time Last Medication Dose Stop Time Status Admin Diphenhydramine HCl 25 MG ONCE ONE 11/07 2099 UNVr (Benadryl) 11/07 2100 Ketorolac 30 MG ONCE ONE 11/07 2099 UNVr Tromethamine 11/07 2100 (Toradol) Departure Departure Disposition: HOME OR SELF CARE Condition: Stable Clinical Impression Primary Impression: Chronic leg pain Secondary Impressions: Open wounds involving multiple regions of lower extremity Referrals: SAL LOERA APRN (PCP/Family) Additional Instructions: Follow-up with your doctors as ready told before. You need further evaluation and pain management by your primary doctors. Please go over all results of today's visit with your primary care doctor. Contact your primary care doctor to let them know you were here in the emergency room. There may be nonspecific findings which may not be related to your visit today here in the emergency room but may require further evaluation and chronic monitoring by your primary care doctor. If you had a laceration today the chance of foreign body always remains. You should follow-up with your primary care doctor for recheck in 3-5 days for a wound check. If you had an x-ray done there is a chance that a fracture could have been missed on initial read and you should follow-up with your primary care doctor for repeat x-rays if symptoms persist. If your blood pressure was elevated here in the emergency room please have rechecked by her primary care doctor within the next 48 hours by your primary care doctor. If you were prescribed a narcotic here in the emergency room or any type of controlled substances you're not allowed to drive while taking this medication or operate any type of heavy machinery. Narcotics can make you feel lightheaded dizziness nausea and can cause constipation. You may need to medicinal plant picker a stool softener. Thank you for choosing emergency room. Please return to the emergency room immediately if you have any other concerns worsening of symptoms. Departure Forms: Customer Survey General Discharge Information Comments Follow-up with your primary care doctor and vascular doctor. (SOWMYA HERNANDEZ) PA/UTILITY SPECIALIST Co-Sign Statement Statement: ED Attending supervision documentation- [] I saw and evaluated the patient. I have also reviewed all the pertinent lab results and diagnostic results. I agree with the findings and the plan of care as documented in the PA's/UTILITY SPECIALIST's documentation. [X] I have reviewed the ED Record and agree with the PA's/UTILITY SPECIALIST's documentation. [] Additions or exceptions (if any) to the PAs/UTILITY SPECIALIST's note and plan are summarized below: [] (ALLEN OSBORN,JONNA)
[2016-11-08] MEDS ORDERED: MELOXICAM15 M1 PO (16:40)
== END 2016-11-07 21:08 ==
LOC: ERH 19:52
DX: S81.809A Unspecified open wound, unspecified lower leg, initial encounter (principal); G89.29 Other chronic pain; X58.XXXA Exposure to other specified factors, initial encounter
CPT/HCPCS: 96372; J1200; J1885

== ENCOUNTER 2016-11-08 14:52 | Emergency (ER) | payer OTHER ==
[~2016-11-08] VITALS: Ht 175.3 cm; Wt 120.7 kg
[2016-11-08 14:56] VITALS: BP 139/65
--- NOTE | 2016-11-08 15:05 | ED UPPER/LOWER EXTREMITY COMPL ---
History of Present Illness General Chief Complaint: Lower Extremity Problems Stated Complaint: LEG PAIN Source: patient, old records, EMS Exam Limitations: no limitations Vital Signs & Intake/Output Vital Signs & Intake/Output Vital Signs Date Time Temp Pulse Resp B/P Pulse O2 O2 Flow FiO2 Ox Delivery Rate 11/08 1456 96.9 90 18 139/65 96 Room Air Allergies Coded Allergies: NO KNOWN ALLERGIES (11/05/16) Triage Note: 61 YO FEMALE TO ER C/O CHRONIC LEG PAIN. STATES SHE STARTED PAIN MANAGEMENT "BUT ALL THEY GIVE ME IS 3 PERCOCETS A DAY AND IT DOES NOTHING FOR ME" PA AT BEDSIDE FOR EVAL Triage Nurses Notes Reviewed? yes HPI: 61-year-old female who is been seen here 41 times since august 142015 for her chronic leg pain comes in with acute exacerbation. Patient reports that she saw her vascular doctor and has a problem with blood supply and is in the process of trying to get surgery. aching severe pain. Continuous. No fever chills. Currently on doxycycline. no fever or chills. she is requesting pain medicaiton. i have reviewed her previous records. (NIKITA BYRD,TROY) Reconcile Medications Doxycycline Hyclate 100 MG TABLET 1 TAB PO BID cellulitis Duloxetine Hydrochloride (Cymbalta) 30 MG CAPSULE.DR 1 CAP PO DAILY NEUROPATHY (Reported) Gabapentin 300 MG CAPSULE 2 CAP PO TID NEUROPATHY (Reported) Glimepiride 4 MG TABLET 1 TAB PO DAILY DM (Reported) Ibuprofen 600 MG TABLET 1 TAB PO Q6-PRN PRN leg pain with food Insulin Glargine,Hum.rec.anlog (Lantus Solostar) 100 UNIT/1 ML INSULN.PEN 25 UNIT SC QAM DIABETES (Reported) Insulin Lispro (Humalog Kwikpen U-100) 100 UNIT/ML INSULN.PEN 1 UNITS SC TIDAC DM (Reported) SLIDING SCALE Meloxicam 15 MG TABLET 1 TAB PO DAILY PAIN/INFLAMMATION (Reported) Metformin HCl (Glucophage) 1,000 MG TABLET 1 TAB PO BID DIABETES (Reported) Metoprolol Succinate 50 MG TAB.ER.24H 1 TAB PO DAILY HTN (Reported) Pantoprazole Sodium 40 MG TABLET.DR 1 TAB PO DAILY GERD (Reported) Prazosin Hydrochloride (Minipress) 1 MG CAPSULE 1 CAP PO QPM NIGHTMARES ( Reported) Quetiapine Fumarate 400 MG TABLET 1 TAB PO QPM SLEEP (Reported) (DEBO NOBLE DO) Past History Travel History Traveled to [place] past 21 day No Medical History Any Pertinent Medical History? 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 FH: CAD (coronary artery disease) FH: myocardial infarction relation unknown (HTN, Diabetee, Bipolar disorder and Depression). Hx Contributory? No (TROY BENÍTEZ) Review of Systems Review of Systems Constitutional: Reports: see HPI. EENTM: Reports: no symptoms. Respiratory: Reports: no symptoms. Cardiovascular: Reports: no symptoms. Gastrointestinal/Abdominal: Reports: no symptoms. Genitourinary: Reports: no symptoms. Musculoskeletal: Reports: see HPI. Skin: Reports: see HPI. Neurological/Psychological: Reports: no symptoms. Hematologic/Endocrine: Reports: no symptoms. Immunological: Reports: no symptoms. All Other Systems: Reviewed and Negative (TROY BENÍTEZ) Physical Exam Physical Exam General Appearance: well developed/nourished Comments: Head: atraumatic Eyes: Bilateral: normal appearance. Ears, Nose, Throat: normal ENT inspection, hearing grossly normal Neck: normal inspection Cardiovascular/Respiratory: no respiratory distress Back: normal inspection Leg Left: transmet region 3x4cm area of distal open wound, minimal marginal erythema, no discharge Leg Right: L posterior lower leg , chronic open wound 3x5cm, no discharge mild erythema, no warmth Neurologic/Tendon: responds to pain, extremities skin is warm and dry B. Skin: intact, normal color, warm/dry Lymphatic: no anterior cervical pat (TROY BENÍTEZ) Progress Differential Diagnosis: arterial insufficiency, cellulitis, CHF, compartment syndrome, contusion, dislocation, DVT, fracture, gout, septic arthritis, sprain, tendon injury, drug-seeking behavior Plan of Care: I had discussion with patient, again, regarding her recurrent visits to the emergency department and how we cannot continue to treat her with IM or IV medication and is not medically appropriate to do so. She went off on a profanity laced tirade demanding to speak to the supervising doctor. Dr. Darby evaluated patient and agrees with findings that we should not continue treat her with IV or IM pain medication. She declined anything further and left the department, verbally abusing the staff on her way out, escorted by security (TROY BENÍTEZ) Departure Departure Disposition: HOME OR SELF CARE Condition: Stable Clinical Impression Primary Impression: Chronic pain of lower extremity, bilateral Referrals: SAL LOERA APRN (PCP/Family) Additional Instructions: follow up with your vascular surgeon next week as scheduled. the Emergency department will no longer be able to provide you with pain medicaiton for chronic issues. please return for emergent care: fever, redness, swelling, flu like illness. Departure Forms: Customer Survey General Discharge Information (TROY BENÍTEZ) Departure Comments 11/08/16 3:32 PM The patient was seen and examined and I agree with the PAs evaluation. She has chronic pain and has had multiple visits to the emergency department, requesting IV IM pain meds. Oral nonnarcotic analgesics were offered. Her lower extremities were examined. She has a palpable right dorsalis pedis pulse, stasis dermatitis and evidence of a peripheral vascular disease. The left foot is status post amputation. The patient declined oral analgesics. She is following up with a vascular surgeon. She ambulated without difficulty from the emergency department. PA/CREAM GATHERER Co-Sign Statement Statement: ED Attending supervision documentation- [X] I saw and evaluated the patient. I have also reviewed all the pertinent lab results and diagnostic results. I agree with the findings and the plan of care as documented in the PA's/CREAM GATHERER's documentation. [] I have reviewed the ED Record and agree with the PA's/CREAM GATHERER's documentation. [] Additions or exceptions (if any) to the PAs/CREAM GATHERER's note and plan are summarized below: [] (DEBO NOBLE DO)
[2016-11-08] MEDS ORDERED: MELOXICAM15 M1 PO (16:40)
== END 2016-11-08 15:32 ==
LOC: ERH 14:52
DX: M79.604 Pain in right leg (principal); M79.605 Pain in left leg; F32.9 Major depressive disorder, single episode, unspecified; G89.29 Other chronic pain; F12.10 Cannabis abuse, uncomplicated; F16.10 Hallucinogen abuse, uncomplicated
CPT/HCPCS: 80307; 99282; G0463; G0480

== ENCOUNTER 2016-11-08 16:01 | Emergency (ER) | payer OTHER ==
--- NOTE | 2016-11-08 16:05 | ED PSYCHIATRIC COMPLAINT ---
See Addendum History of Present Illness General Chief Complaint: Psychiatric Related Complaint Stated Complaint: +SI Source: patient Exam Limitations: clinical condition Allergies Coded Allergies: NO KNOWN ALLERGIES (11/05/16) Reconcile Medications Doxycycline Hyclate 100 MG TABLET 1 TAB PO BID cellulitis Duloxetine Hydrochloride (Cymbalta) 30 MG CAPSULE.DR 1 CAP PO DAILY NEUROPATHY (Reported) Gabapentin 300 MG CAPSULE 2 CAP PO TID NEUROPATHY (Reported) Glimepiride 4 MG TABLET 1 TAB PO DAILY DM (Reported) Ibuprofen 600 MG TABLET 1 TAB PO Q6-PRN PRN leg pain with food Insulin Glargine,Hum.rec.anlog (Lantus Solostar) 100 UNIT/1 ML INSULN.PEN 25 UNIT SC QAM DIABETES (Reported) Insulin Lispro (Humalog Kwikpen U-100) 100 UNIT/ML INSULN.PEN 1 UNITS SC TIDAC DM (Reported) SLIDING SCALE Meloxicam 15 MG TABLET 1 TAB PO DAILY PAIN/INFLAMMATION (Reported) Metformin HCl (Glucophage) 1,000 MG TABLET 1 TAB PO BID DIABETES (Reported) Metoprolol Succinate 50 MG TAB.ER.24H 1 TAB PO DAILY HTN (Reported) Pantoprazole Sodium 40 MG TABLET.DR 1 TAB PO DAILY GERD (Reported) Prazosin Hydrochloride (Minipress) 1 MG CAPSULE 1 CAP PO QPM NIGHTMARES ( Reported) Quetiapine Fumarate 400 MG TABLET 1 TAB PO QPM SLEEP (Reported) Triage Note: PT BROUGHT INTO ER AFTER WALKING OUT OF ROOM 9, GOING OUTSIDE AND MAKING +SI COMMENT. Triage Nurses Notes Reviewed? yes Onset: Abrupt Duration: hour(s): Timing: recent history HPI: 11/08/16 4 PM 61-year-old female was discharged earlier for an exacerbation of chronic pain. The patient declined oral analgesics. Upon discharge she was making suicidal statements in the waiting room that she had intentions of killing herself when she went home. The patient stated that she was going to kill her self; because of her pain. She attempted to walk home in the storm, despite her limitations and ambulation. In fact she ambulated with difficulty to the bus station and was again saying that she would rather be than live in this pain. The onset of the symptoms were abrupt, the duration was just this evening, the severity is significant as her symptoms required to come to the emergency department for care. (REAL DO,DEBO L.) Vital Signs & Intake/Output Vital Signs & Intake/Output Vital Signs Date Time Temp Pulse Resp B/P Pulse O2 O2 Flow FiO2 Ox Delivery Rate 11/08 1947 Room Air 11/08 1628 Room Air 11/08 1605 98.2 104 16 150/97 91 Room Air The patient was placed in a quiet room with security. Crisis consultation was requested. (DEBO NOBLE DO) Past History Medical History Any Pertinent Medical History? 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 FH: CAD (coronary artery disease) FH: myocardial infarction relation unknown (HTN, Diabetee, Bipolar disorder and Depression). Hx Contributory? No (DEBO NOBLE DO) Review of Systems Review of Systems Constitutional: Reports: no symptoms. EENTM: Reports: no symptoms. Respiratory: Reports: no symptoms. Cardiovascular: Reports: no symptoms. GI: Reports: no symptoms. Genitourinary: Reports: no symptoms. Musculoskeletal: Reports: joint pain, muscle pain. Skin: Reports: no symptoms. Neurological/Psychological: Reports: depressed. Hematologic/Endocrine: Reports: no symptoms. (DEBO NOBLE DO) Physical Exam Physical Exam General Appearance: alert, awake, anxious, mild distress Head: atraumatic, normal appearance Eyes: Bilateral: normal appearance, PERRL, EOMI. Ears, Nose, Throat: normal ENT inspection Neck: limited range of motion Respiratory: decreased breath sounds Cardiovascular: regular rate/rhythm Extremities: RLE TENDER, + DP PULSE Neurological/Psychiatric: no motor/sensory deficits, awake, agitated, anxious, depressed affect Appearance/Memory/Insight: disheveled Behavoir/Eye Contact/Speech: uncooperative Thoughts/Hallucinations: no apparent hallucination Skin: rash SAD PERSONS SAD PERSONS Response Value Age <19 or >45 years? yes 1 Depression/Hopelessness? yes 2 Excessive Ethanol/Drug Use? yes 1 Single//? yes 1 Social Support? has no support 1 Stated Future Intent? yes 2 Total 8 SAD PERSONS Done? yes (DEBO NOBLE DO) Progress Differential Diagnosis: DEPRESSION, SI Initial ED EKG: none (DEBO NOBLE DO) Plan of Care: Orders Procedure Date/time Status Continuous Observation Monitor 11/08 1611 Active URINE DRUG SCREEN FOR ER ONLY 11/08 1611 Complete ETHANOL 11/08 1611 Complete COMPREHENSIVE METABOLIC PANEL 11/08 1611 Complete CBC WITHOUT DIFFERENTIAL 11/08 1611 Complete ED CRISIS PSYCH CONSULT 11/08 1611 Active Laboratory Tests 11/08/16 1900: CBC w Diff NO MAN DIFF REQ, RBC 4.21, MCV 78.1 L, MCH 25.8 L, RDW 20.4 H, MPV 7.6, Gran % 61.6, Lymphocytes % 29.5, Monocytes % 5.3, Eosinophils % 2.0, Basophils % 1.6, Absolute Granulocytes 4.8, Absolute Lymphocytes 2.3, Absolute Monocytes 0.4, Absolute Eosinophils 0.2, Absolute Basophils 0.1, PUBS MCHC 33.1 11/08/16 1815: Urine Opiates Screen 190.00, Methadone Screen 70, Barbiturate Screen < 60, Ur Phencyclidine Scrn 46.90 H, Amphetamines Screen < 100, U Benzodiazepines Scrn < 85, Urine Cocaine Screen < 50, Urine Cannabis Screen 73.00 H 11/08/16 1708: Anion Gap 13, Estimated GFR > 60, BUN/Creatinine Ratio 27.5 H, Glucose 172 H, Calcium 9.2, Total Bilirubin 0.4, AST 19, ALT 26, Alkaline Phosphatase 88, Total Protein 7.5, Albumin 4.0, Globulin 3.5, Albumin/Globulin Ratio 1.1, Serum Alcohol < 10.0 SITER , CRISIS CONSULTATION (DEBO NOBLE DO) Comments: Cleared by psychiatry for discharge (HIPTRINH SLAUGHTER MD) Departure Departure Condition: Stable Referrals: SAL LOERA APRN (PCP/Family) (DEBO NOBLE DO) Departure Comments 11/08/16 [address]IENT [address] OUT TO DR SUH AT 7 PM (DEBO NOBLE DO ([facility])) Departure Time of Disposition: 2004 Disposition: HOME OR SELF CARE Clinical Impression Primary Impression: Depression Qualifiers: Depression Type: unspecified Qualified Code: F32.9 - Major depressive disorder, single episode, unspecified Secondary Impressions: Chronic pain syndrome, Marijuana abuse, Phencyclidine ( PCP) use disorder, mild Departure Forms: General Discharge Information (TRINH SUH MD) Critical Care Note Critical Care Note Critical Care Time: 30-74 min (DEBO NOBLE DO)
[2016-11-08] MEDS ORDERED: MELOXICAM15 M1 PO (16:40)
[2016-11-08 19:10] LABS: ABSOLUTE BASOPHIL COUNT 0.1 /CUMM (0.0-0.2); ABSOLUTE EOSINOPHIL COUNT 0.2 /CUMM (0.0-0.7); ABSOLUTE GRANULOCYTE CT 4.8 /CUMM (1.4-6.5); ABSOLUTE LYMPH COUNT 2.3 /CUMM (1.2-3.4); ABSOLUTE MONOCYTE COUNT 0.4 /CUMM (0.10-0.60); BASOPHIL % 1.6 % (0.0-2.0); GRANULOCYTE % 61.6 % (42.2-75.2); HEMATOCRIT 32.9 % (37-47); MEAN CORPUSCULAR HGB 25.8 PG (27.0-31.0); MEAN CORPUSCULAR HGB CONC 33.1 G/DL (33.0-37.0); MEAN CORPUSCULAR VOLUME 78.1 FL (81.0-99.0); MEAN PLATELET VOLUME 7.6 FL (7.4-10.4); PLATELET COUNT 282 /CUMM (130-400); RBC DISTRIBUTION WIDTH 20.4 % (11.5-14.5); RED BLOOD CELL CT 4.21 /CUMM (4.20-5.40); WHITE BLOOD CELL COUNT 7.7 /CUMM (4.8-10.8)
--- NOTE | 2016-11-08 20:24 | ED PSYCH CRISIS CONSULTATION ---
Crisis Consult Basic Assessment Date of Consult: 11/08/16 Responsible Person/Accompanied By: self Insurance Authorization: Insurance #1: Insurance name: [employer] SOLANO Phone number: Policy number: [id number] Group number: Authorization number: ED Provider: Patient's ED Provider: TRINH SUH MD Primary Care Physician: Patient's PCP: SAL LOERA APRN PCP's Current Psychiatrist: none Chief Complaint: Psychiatric Related Complaint Patient's Quote: I'm doing terrible. I'm in pain in my legs and feet. Present Illness: Pt is a 61 yo female who had presented earlier this afternoon to [facility] with c/o leg pain. Pt has been seen in [facility] appx 35x since Aug 30 2016 for reports of leg pain and seeking pain medication. When pt wasn't medicated for pain today she walked out of ED into waiting room area and stated she rather "be then in pain". Pt was then referred back to ED and evaluated for SI. Pt has a long hx of etoh and opiate abuse but reports maintaining sobriety past 30+ yrs except for continued cannabis use. Pt reports attending daily AA meetings and monthy outpatient therapy session at [facility]. She reports no current psychotropic medications. She denies SI (I have a 21 yo son. I'm not going to do it, i was just frustrated". denies depression and all other psychiatric concerns. She reports primary concern is tx for leg pain. She reports seeing a specialist in [place] yesterday and will have a procedure where stents are put in her groin to open up vascular flow. She couldn't recall specialists name and was unable to indicate why this dr isn't precribing for her pain medication. Pt presents as alert, engaged, good eye contact, OX3. She denies interest and need for psychiatric care. Pt resides with her [facility] and he reports no concerns regarding pt other that her constant leg pain. [facility] reports no concerns regarding pt safety. Patient's Address: [address] [place] [address] Other Phone Number: Who Do You Live With? Other (see notes) ([facility]) Family/Informants Interviewed: Collateral provided by [facility] [phone]. he reports no safety concerns and feels comfortable with PT being discharged back home this evening. Allergies - Coded Allergies: NO KNOWN ALLERGIES (11/05/16) Current Medications - Scheduled Medications Doxycycline Hyclate 100 MG TABLET 1 TAB PO BID cellulitis #14 TAB Prescribed by SOWMYA CHASE PA-C on 11/04/16 Duloxetine Hydrochloride (Cymbalta) 30 MG CAPSULE.DR 1 CAP PO DAILY NEUROPATHY (Reported) Entered as Reported by GUANAKITO ANNE on 06/04/162009 Last Taken: At an unknown date and time Gabapentin 300 MG CAPSULE 2 CAP PO TID NEUROPATHY #180 (Reported) Entered as Reported by ROXANA AVENDANO on 07/20/16 162 Glimepiride 4 MG TABLET 1 TAB PO DAILY DM #30 (Reported) Entered as Reported by ROXANA AVENDANO on 07/20/16 162 Insulin Glargine,Hum.rec.anlog (Lantus Solostar) 100 UNIT/1 ML INSULN.PEN 25 UNIT SC QAM DIABETES (Reported) Entered as Reported by GUANAKITO ANNE on 06/04/162011 Insulin Lispro (Humalog Kwikpen U-100) 100 UNIT/ML INSULN.PEN 1 UNITS SC TIDAC DM #15 (Reported) Entered as Reported by ROXANA AVENDANO on 07/20/16 1630 Meloxicam 15 MG TABLET 1 TAB PO DAILY PAIN/INFLAMMATION #30 (Reported) Entered as Reported by RIDGE BATRES on 11/08/16 1640 Metformin HCl (Glucophage) 1,000 MG TABLET 1 TAB PO BID DIABETES (Reported) Entered as Reported by GUANAKITO ANNE on 06/04/16 2013 Metoprolol Succinate 50 MG TAB.ER.24H 1 TAB PO DAILY HTN #30 (Reported) Entered as Reported by SIRIA REEVES on 10/16/16 0334 Last Taken: At an unknown date and time Pantoprazole Sodium 40 MG TABLET.DR 1 TAB PO DAILY GERD #30 (Reported) Entered as Reported by ROXANA AVENDANO on 07/20/16 1628 Last Taken: At an unknown date and time Prazosin Hydrochloride (Minipress) 1 MG CAPSULE 1 CAP PO QPM NIGHTMARES ( Reported) Entered as Reported by GUANAKITO ANNE on 06/04/162013 Quetiapine Fumarate 400 MG TABLET 1 TAB PO QPM SLEEP #30 (Reported) Entered as Reported by LAYLA BONILLA on 09/20/16 1222 Scheduled PRN Medications Ibuprofen 600 MG TABLET 1 TAB PO Q6-PRN PRN leg pain #90 TAB Prescribed by ON[facility]OR [facility] on 10/19/16 Laboratory Results: Laboratory Tests 11/08/16 1900: CBC w Diff NO MAN DIFF REQ, RBC 4.21, MCV 78.1 L, MCH 25.8 L, RDW 20.4 H, MPV 7.6, Gran % 61.6, Lymphocytes % 29.5, Monocytes % 5.3, Eosinophils % 2.0, Basophils % 1.6, Absolute Granulocytes 4.8, Absolute Lymphocytes 2.3, Absolute Monocytes 0.4, Absolute Eosinophils 0.2, Absolute Basophils 0.1, PUBS MCHC 33.1 11/08/16 1815: Urine Opiates Screen 190.00, Methadone Screen 70, Barbiturate Screen < 60, Ur Phencyclidine Scrn 46.90 H, Amphetamines Screen < 100, U Benzodiazepines Scrn < 85, Urine Cocaine Screen < 50, Urine Cannabis Screen 73.00 H 11/08/16 1708: Anion Gap 13, Estimated GFR > 60, BUN/Creatinine Ratio 27.5 H, Glucose 172 H, Calcium 9.2, Total Bilirubin 0.4, AST 19, ALT 26, Alkaline Phosphatase 88, Total Protein 7.5, Albumin 4.0, Globulin 3.5, Albumin/Globulin Ratio 1.1, Serum Alcohol < 10.0 Past History Past Medical History Neurological: status post TBI EENT: NONE Cardiovascular: chronic venous insuff, hypertension, PVD Respiratory: asthma Gastrointestinal: NONE Hepatic: hepatitis B Renal: HISTORY OF RENAL FAILURE Musculoskeletal: LEFT BKA Psychiatric: substance abuse (OPIOIDS), ptsd, CHRONIC PAIN SYNDROME, BIPOLAR, eToh ABUSE, Endocrine: diabetes (2) Blood Disorders: NONE Cancer(s): NONE 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 Physical Limitations (Interventions): Uses a cane-amputated toes (1 toe left), ulcer sores on legs h/o of stents. Psychiatric Treatment History Psych Treatment Psychiatric Treatment Yes Inpatient Treatment Yes Outpatient Treatment Yes Location of Treatment [facility] last 2014; [facility] current Reason for Treatment confusion, AMS Response to Treatment psychiatrically stable Diagnosis by History: Bipolar disorder, cannabis abuse, heroin dependence, remote history of alcohol dependence. Substance Use/Abuse History Drug Use/Abuse Substances Used/Abused Yes Substance Abuse Treatment Substance Abuse Treatment Past Substance Abuse [place] No Comments: Pt has a long hx of etoh, heroin and other substance abuse. Committed to sobriety past 30 yrs except for continued cannabis use. She reports her CARE is helping her get her legal marijuana card. Current Mental Status Mental Status Orientation: Person, Place, Situation Affect: Flat Speech: WNL Neuro-vegetative: WNL Appearance Appearance- Dress/Hygiene: hospital scrubs. Sat up straight in bed. good eye contact, engaged Behaviors Thought Process: WNL Thought Content: WNL Memory: Impaired Insight: Fair SI/HI Risk Assessment Past Suicidal Ideation/Attempts Yes Current Suicidal Ideation/Att No Past Homicidal Ideation/Att: No Current Homicidal Ideation/Attempts No Degree of Intent: None Gravely Disabled: Poor Impulse Control, Poor Judgment Risk Factors: chronic/serious med cond., high anxiety/distress, SA/MH hospitalized, substance abuse, poor impulse control Lethality Ratin PTSD Checklist PTSD Done? patient declined ED Management Sitter: Yes Restraints: No DSM5/PS Stressors/Medical Prob Diagnosis' (DSM 5, Stressors, Medical): Unspecified Depression(F32.9) alcohol dependence by hx opiod dependence by hx chronic leg pain Current GAF: 40 Comments: Pt reports experiencing chronic leg pain but unclear why she isn't being treated through pain management of by her specialist. Pt reports the only thing that helps is coming to [facility] and getting injection of Benadryl and Tordol. Pt denies SI and reports she made statement this evening out of frustration but she "would never do it" Departure Disposition Psych Medical Clearance Date: 11/08/16 Medically Cleared at: 1930 Time Started: 1934 Time Ended: 2014 Psychiatrist Consulted: Shahnaz Portillo MD Date Disposition Established: 11/08/16 Time Disposition Established: 2019 Plan for Disposition - Modality: Outpatient Facility: Care Rationale for Disposition: Pt denies SI. Pt denies depression, denies mental health concerns. She reports her primary concern is receiving tx for leg pain. Crisis encouraged her to discuss pain medication with the specialist who is performing the "Stent" procedure and to continue receiving outpatient services at [facility]. Referrals SAL LOERA APRN (PCP/Family)
[2016-11-08 20:59] VITALS: BP 148/70
== END 2016-11-08 21:15 ==
LOC: ERH 16:01
PROVIDERS: Emergency Medicine
DX: F32.9 Major depressive disorder, single episode, unspecified (principal); G89.29 Other chronic pain; F12.10 Cannabis abuse, uncomplicated; F16.10 Hallucinogen abuse, uncomplicated
CPT/HCPCS: 80307; G0463; G0480

== ENCOUNTER 2016-11-11 22:12 | Emergency (ER) | payer OTHER ==
[~2016-11-11 22:12] MED LIST changes: +MELOXICAM15 M1 PO
--- NOTE | 2016-11-11 22:16 | ED UPPER/LOWER EXTREMITY COMPL ---
History of Present Illness General Chief Complaint: General Adult Stated Complaint: BIBA PAIN Source: patient Exam Limitations: no limitations Vital Signs & Intake/Output Vital Signs & Intake/Output . Allergies Coded Allergies: NO KNOWN ALLERGIES (11/05/16) Reconcile Medications Doxycycline Hyclate 100 MG TABLET 1 TAB PO BID cellulitis Duloxetine Hydrochloride (Cymbalta) 30 MG CAPSULE.DR 1 CAP PO DAILY NEUROPATHY (Reported) Gabapentin 300 MG CAPSULE 2 CAP PO TID NEUROPATHY (Reported) Glimepiride 4 MG TABLET 1 TAB PO DAILY DM (Reported) Ibuprofen 600 MG TABLET 1 TAB PO Q6-PRN PRN leg pain with food Insulin Glargine,Hum.rec.anlog (Lantus Solostar) 100 UNIT/1 ML INSULN.PEN 25 UNIT SC QAM DIABETES (Reported) Insulin Lispro (Humalog Kwikpen U-100) 100 UNIT/ML INSULN.PEN 1 UNITS SC TIDAC DM (Reported) SLIDING SCALE Meloxicam 15 MG TABLET 1 TAB PO DAILY PAIN/INFLAMMATION (Reported) Metformin HCl (Glucophage) 1,000 MG TABLET 1 TAB PO BID DIABETES (Reported) Metoprolol Succinate 50 MG TAB.ER.24H 1 TAB PO DAILY HTN (Reported) Pantoprazole Sodium 40 MG TABLET.DR 1 TAB PO DAILY GERD (Reported) Prazosin Hydrochloride (Minipress) 1 MG CAPSULE 1 CAP PO QPM NIGHTMARES ( Reported) Quetiapine Fumarate 400 MG TABLET 1 TAB PO QPM SLEEP (Reported) Triage Note: PT BIBA FOR LEG PAIN. Triage Nurses Notes Reviewed? yes Onset: Gradual Duration: week(s):, waxing and waning Timing: recent history Severity: moderate Pain/Injury Location: Bilateral: Other (bilateral feet). Method of Injury: chronic peripheral vascular disease Modifying Factors: Improves With: pain medication. Associated Symptoms: "feels like my legs are burning." HPI: 61-year-old woman with a history of peripheral vascular disease, chronic pain presents with bilateral lower extremity pain consistent with her prior episodes. She states, "my nurse didn't come and she didn't change my dressing." "I think it's the cold weather." She notes that she went to the pain clinic and they started her on Percocet 5 mg tablets 3 times a day. She states, "they don't help at all. The only that helps is Toradol and Benadryl." She states that she has seen a vascular surgeon and she is due for bilateral femoral artery stents within the next month. She notes no fever chills nausea vomiting diarrhea, chest pain shortness of breath. Past History Travel History Traveled to [place] past 21 day No Medical History Any Pertinent Medical History? 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 FH: CAD (coronary artery disease) FH: myocardial infarction relation unknown (HTN, Diabetee, Bipolar disorder and Depression). Hx Contributory? No Review of Systems Review of Systems Constitutional: Reports: no symptoms. EENTM: Reports: no symptoms. Respiratory: Reports: no symptoms. Cardiovascular: Reports: no symptoms. Gastrointestinal/Abdominal: Reports: no symptoms. Genitourinary: Reports: no symptoms. Musculoskeletal: Reports: no symptoms. Skin: Reports: no symptoms. Neurological/Psychological: Reports: no symptoms. Hematologic/Endocrine: Reports: no symptoms. Immunological: Reports: no symptoms. All Other Systems: Reviewed and Negative Physical Exam Physical Exam General Appearance: well developed/nourished, mild distress Head: atraumatic Eyes: Bilateral: normal appearance. Ears, Nose, Throat: normal pharynx, normal ENT inspection, hearing grossly normal Neck: normal inspection, supple Cardiovascular/Respiratory: regular rate/rhythm Back: normal inspection Skin: intact, normal color, warm/dry Lymphatic: no anterior cervical pat Comments: Left foot status post metatarsal amputation. Left foot is clean dry intact warm , not hot to palpation. Right extremity shows 2 superficial erosions on the dorsal aspect of her second and third digits. There is also an ulcer on the lateral aspect of her inner calf approximately 1 x 3 cm. There is no sign of infection or drainage. Progress Differential Diagnosis: chronic pain versus peripheral vascular disease versus other. Plan of Care: Current Medications Sig/Macy Start time Last Medication Dose Stop Time Status Admin Diphenhydramine HCl 50 MG ONCE ONE 11/11 2214 UNVr (Benadryl) 11/11 2215 Ketorolac 60 MG ONCE ONE 11/11 2214 UNVr Tromethamine 11/11 2215 (Toradol) Departure Departure Disposition: HOME OR SELF CARE Condition: Stable Clinical Impression Primary Impression: Chronic pain Secondary Impressions: Pressure ulcer Referrals: SAL LOERA APRN (PCP/Family) Departure Forms: Customer Survey General Discharge Information Comments Patient given Toradol 60 mg IM and Benadryl 50 mg IM. Patient was stable exam. I referred the patient to the wound care center to address these chronic ulcers which appear stable and are not infected at present. I encouraged to follow up with her vascular surgeon, her primary care doctor and her pigs feet finisher.
[2016-11-11 22:19] VITALS: BP 153/69
--- NOTE | 2016-11-12 19:01 | ED CARE PLAN ---
Plan of Care - The use of opiate analgesics and IV/IM medications should be only be utilized when clinically appropriate and medically indicated.
[2016-11-12] MEDS ORDERED: KETOROLAC TROME10 M1 PO (22:53)
== END 2016-11-11 22:42 ==
LOC: ERH 22:12
DX: G89.29 Other chronic pain (principal); L89.899 Pressure ulcer of other site, unspecified stage
CPT/HCPCS: 96372; J1200; J1885

== ENCOUNTER 2016-11-12 21:08 | Emergency (ER) | payer OTHER ==
[~2016-11-12] VITALS: Ht 162.6 cm; Wt 102.1 kg
--- NOTE | 2016-11-12 22:45 | ED UPPER/LOWER EXTREMITY COMPL ---
History of Present Illness General Chief Complaint: General Adult Stated Complaint: BIBA FOR CHRONIC PAIN Source: patient, old records Exam Limitations: no limitations Vital Signs & Intake/Output Vital Signs & Intake/Output Vital Signs Date Time Temp Pulse Resp B/P Pulse O2 O2 Flow FiO2 Ox Delivery Rate 11/12 2305 98.4 79 16 120/68 100 Room Air 11/12 2115 98.3 89 16 115/74 100 Room Air ED Intake and Output 11/13 0000 11/12 1200 Intake Total 0 Output Total Balance 0 Intake, Oral 0 Patient 225 lb Weight Allergies Coded Allergies: NO KNOWN ALLERGIES (11/05/16) Reconcile Medications Doxycycline Hyclate 100 MG TABLET 1 TAB PO BID cellulitis Duloxetine Hydrochloride (Cymbalta) 30 MG CAPSULE.DR 1 CAP PO DAILY NEUROPATHY (Reported) Gabapentin 300 MG CAPSULE 2 CAP PO TID NEUROPATHY (Reported) Glimepiride 4 MG TABLET 1 TAB PO DAILY DM (Reported) Ibuprofen 600 MG TABLET 1 TAB PO Q6-PRN PRN leg pain with food Insulin Glargine,Hum.rec.anlog (Lantus Solostar) 100 UNIT/1 ML INSULN.PEN 25 UNIT SC QAM DIABETES (Reported) Insulin Lispro (Humalog Kwikpen U-100) 100 UNIT/ML INSULN.PEN 1 UNITS SC TIDAC DM (Reported) SLIDING SCALE Ketorolac Tromethamine 10 MG TABLET 1 TAB PO BID PRN BREAKTHROUGH PAIN Meloxicam 15 MG TABLET 1 TAB PO DAILY PAIN/INFLAMMATION (Reported) Metformin HCl (Glucophage) 1,000 MG TABLET 1 TAB PO BID DIABETES (Reported) Metoprolol Succinate 50 MG TAB.ER.24H 1 TAB PO DAILY HTN (Reported) Pantoprazole Sodium 40 MG TABLET.DR 1 TAB PO DAILY GERD (Reported) Prazosin Hydrochloride (Minipress) 1 MG CAPSULE 1 CAP PO QPM NIGHTMARES ( Reported) Quetiapine Fumarate 400 MG TABLET 1 TAB PO QPM SLEEP (Reported) Triage Note: PT TO ED FOR CHRONIC LEG PAIN, SEEN IN THIS ED 10X THIS MONTH FOR SAME. INFORMED OF WAIT AND PT STATING "I WISH THE AMUBLANCE TOLD ME I WOULD OF WAITED UNTIL TOMORROW" Triage Nurses Notes Reviewed? yes Onset: Abrupt Duration: week(s):, constant Timing: recent history Severity: moderate Severity Numbers: 8 Pain/Injury Location: Bilateral: Leg. Method of Injury: chronic neuropathy No Modifying Factors: none Associated Symptoms: none HPI: 60-year-old female with history of TIA, neuropathy who is been seen numerous times in this emergency room over the past several months presents to emergency room this evening complaining of an exacerbation of her chronic lower extremity pain. She has been able to be seen by pain management in [place] and is currently on 5 mg Percocets which she is taking without improvement. She states the Toradol and Benadryl she receives urine emergency room is feeling thing currently that helps her with pain. There is been no recent injury or trauma. The patient does have visiting nursing services to come to her house. She denies any discharge from her wound to her right leg redness fever or chills. The pain is aching and throbbing nonradiating. The patient denies any new complaints no chest pain no shortness of breath or no modifying factors or associated symptoms (DONNY WEBB) Past History Travel History Traveled to [place] past 21 day No Medical History Any Pertinent Medical History? see below for history Neurological: status post TBI EENT: NONE Cardiovascular: chronic venous insuff, hypertension, PVD Respiratory: asthma Gastrointestinal: NONE Hepatic: hepatitis B Renal: HISTORY OF RENAL FAILURE Musculoskeletal: LEFT BKA Psychiatric: substance abuse (OPIOIDS), ptsd, CHRONIC PAIN SYNDROME, BIPOLAR, eToh ABUSE, Endocrine: diabetes (2) Blood Disorders: NONE Cancer(s): NONE ALUMINUM WELDER/Reproductive: BILATERAL OOPHERECTOMY Other Medical Hx: hep B, osteomyelitis, peripheral vascular disease History of MRSA: Yes History of VRE: No History of CDIFF: No Surgical History Surgical History: LEFT FOOT TRANSMETATARSAL AMPUTATION, VASCULAR PROCEDURE LOWER LEGS status post lower extremity revascularization Psychosocial History Who do you live with Other (see notes) Services at Home Home Health Aide, Nursing What is your primary language Iranian Tobacco Use: Current Daily Use Daily Tobacco Use Amount/Type: => 5 Cigarettes daily ETOH Use: occasional use Illicit Drug Use: cocaine Family History Family History, If Any: MOTHER (PVD, always had purple feet). FH: CAD (coronary artery disease) FH: myocardial infarction relation unknown (HTN, Diabetee, Bipolar disorder and Depression). Hx Contributory? No (DONNY WEBB) Review of Systems Review of Systems Constitutional: Reports: see HPI. All Other Systems: Reviewed and Negative Comments Review of systems: See HPI, All other systems negative. Constitutional, no chills no fever, no malaise HEENT: No visual changes no sore throat no congestion Cardiovascular: No chest pain , no palpitation Skin, no rashes, no change in skin Respiratory: No dyspnea no cough no sputum GI: No nausea no vomiting, no diarrhea : No dysuria Muscle skeletal: Chronic joint pain, no joint swelling, no back pain, no neck pain, Neurologic: numbness, no headache Psych: No stress Heme/endocrine: No bruising no bleeding Immunology: No lymphadenopathy (DONNY WEBB) Physical Exam Physical Exam General Appearance: well developed/nourished, no apparent distress, alert, awake Comments: Well-developed well-nourished patient in no apparent distress. HEENT: Atraumatic, extraocular motion intact Neck: Supple, FROM Back: FROM Cardiovascular: Regular rate and rhythms no murmurs Respiratory: No respiratory distress. Patient speaking in full complete sentences. Breath sounds clear to auscultation bilaterally Extremities: Full range of motion. Sensation intact, there is a 1 cm x 2 cm ulceration noted to the posterior aspect of the right lower extremity, there is no surrounding erythema or induration or fluctuance no discharge noted the dressing that was in place was clean and dry, the left foot is status post metatarsal resection, there is a small 0.5 cm ulceration to the distal plantar surface of the left foot with no surrounding erythema Neuro: Alert and oriented x3 Skin: Warm & dry;No appreciable rash on exposed skin Psych: Mood affect normal, normal memory normal judgment. (DONNY WEBB) Progress Differential Diagnosis: contusion, gout, septic arthritis, sprain, osteomeyltis, chronic pain Plan of Care: Patient was advised to follow up with her pain management physician Ricardo she is currently on Percocet prescription for Toradol provided I discussed the medications that they will receive with the patient. I gave them signs and symptoms that could indicate an adverse reaction. I have advised them to limit their activities until they can see how they respond to the medication. (DONNY WEBB) Departure Departure Time of Disposition: 2251 Disposition: HOME OR SELF CARE Condition: Stable Clinical Impression Primary Impression: Chronic leg pain Referrals: SAL LOERA APRN (PCP/Family) Additional Instructions: Follow-up with her pain management physician regarding her chronic pain Your Toradol prescription was sent to your pharmacy Departure Forms: Customer Survey General Discharge Information Prescriptions: Current Visit Scripts Ketorolac Tromethamine 1 TAB PO BID PRN BREAKTHROUGH PAIN #20 TAB (GRANT BYRD,DONNY) PA/ENDORSEMENT CLERK Co-Sign Statement Statement: ED Attending supervision documentation- [] I saw and evaluated the patient. I have also reviewed all the pertinent lab results and diagnostic results. I agree with the findings and the plan of care as documented in the PA's/ENDORSEMENT CLERK's documentation. [X] I have reviewed the ED Record and agree with the PA's/ENDORSEMENT CLERK's documentation. [] Additions or exceptions (if any) to the PAs/ENDORSEMENT CLERK's note and plan are summarized below: [] (LUCIANA OSBORN,DILCIA Romero)
[2016-11-12] MEDS ORDERED: KETOROLAC TROME10 M1 PO (22:53)
[2016-11-12 23:05] VITALS: BP 120/68
== END 2016-11-12 23:06 ==
LOC: ERH 21:08
DX: M79.604 Pain in right leg (principal); M79.605 Pain in left leg
CPT/HCPCS: 96372; J1200; J1885

== ENCOUNTER 2016-11-13 19:37 | Emergency (ER) | payer OTHER ==
[~2016-11-13] VITALS: Ht 175.3 cm; Wt 120.7 kg
--- NOTE | 2016-11-13 20:25 | ED UPPER/LOWER EXTREMITY COMPL ---
History of Present Illness General Chief Complaint: Lower Extremity Problems Stated Complaint: "BILATERAL LEG PAIN" Source: patient Exam Limitations: no limitations Vital Signs & Intake/Output Vital Signs & Intake/Output Vital Signs Date Time Temp Pulse Resp B/P Pulse O2 O2 Flow FiO2 Ox Delivery Rate 11/14 0632 96.6 62 20 163/70 98 Room Air 11/14 0130 97.5 78 16 108/65 96 Room Air Room Air 11/14 0126 97.5 78 16 108/65 96 Room Air Room Air 11/13 2229 Room Air 11/13 2008 97.9 82 18 138/81 96 Room Air ED Intake and Output 11/14 0000 11/13 1200 Intake Total Output Total Balance Patient 266 lb Weight Allergies Coded Allergies: NO KNOWN ALLERGIES (11/05/16) Reconcile Medications Doxycycline Hyclate 100 MG TABLET 1 TAB PO BID cellulitis Duloxetine Hydrochloride (Cymbalta) 30 MG CAPSULE.DR 1 CAP PO DAILY NEUROPATHY (Reported) Gabapentin 300 MG CAPSULE 2 CAP PO TID NEUROPATHY (Reported) Glimepiride 4 MG TABLET 1 TAB PO DAILY DM (Reported) Ibuprofen 600 MG TABLET 1 TAB PO Q6-PRN PRN leg pain with food Insulin Glargine,Hum.rec.anlog (Lantus Solostar) 100 UNIT/1 ML INSULN.PEN 25 UNIT SC QAM DIABETES (Reported) Insulin Lispro (Humalog Kwikpen U-100) 100 UNIT/ML INSULN.PEN 1 UNITS SC TIDAC DM (Reported) SLIDING SCALE Ketorolac Tromethamine 10 MG TABLET 1 TAB PO BID PRN BREAKTHROUGH PAIN Meloxicam 15 MG TABLET 1 TAB PO DAILY PAIN/INFLAMMATION (Reported) Metformin HCl (Glucophage) 1,000 MG TABLET 1 TAB PO BID DIABETES (Reported) Metoprolol Succinate 50 MG TAB.ER.24H 1 TAB PO DAILY HTN (Reported) Pantoprazole Sodium 40 MG TABLET.DR 1 TAB PO DAILY GERD (Reported) Prazosin Hydrochloride (Minipress) 1 MG CAPSULE 1 CAP PO QPM NIGHTMARES ( Reported) Quetiapine Fumarate 400 MG TABLET 1 TAB PO QPM SLEEP (Reported) Triage Note: PT TO TRIAGE WITH C/O BILAT LOWER EXTREMITIES PAIN 10/10. PT REQUEST TORADOL AND BENADRYL INJECTIONS. VSS. Triage Nurses Notes Reviewed? yes Onset: Abrupt Duration: chronic Timing: recent history Severity: moderate, severe No Modifying Factors: none HPI: 61-year-old female comes into emergency room with complaints of her chronic leg pain. Patient has been seen here over 40 times since July. Patient continuously comes back for pain medication. Patient reports that she ran out of her pain medication at home. There is no change in regards to her symptoms. There is no new complaints. (SOWMYA HERNANDEZ) Past History Travel History Traveled to [place] past 21 day No Medical History Any Pertinent Medical History? see below for history Neurological: status post TBI EENT: NONE Cardiovascular: chronic venous insuff, hypertension, PVD Respiratory: asthma Gastrointestinal: NONE Hepatic: hepatitis B Renal: HISTORY OF RENAL FAILURE Musculoskeletal: LEFT BKA Psychiatric: substance abuse (OPIOIDS), ptsd, CHRONIC PAIN SYNDROME, BIPOLAR, eToh ABUSE, Endocrine: diabetes (2) Blood Disorders: NONE Cancer(s): NONE CUSHION PADDER/Reproductive: BILATERAL OOPHERECTOMY Other Medical Hx: hep B, osteomyelitis, peripheral vascular disease History of MRSA: Yes History of VRE: No History of CDIFF: No Surgical History Surgical History: LEFT FOOT TRANSMETATARSAL AMPUTATION, VASCULAR PROCEDURE LOWER LEGS status post lower extremity revascularization Psychosocial History Who do you live with Other (see notes) Services at Home Home Health Aide, Nursing What is your primary language French Tobacco Use: Current Daily Use Daily Tobacco Use Amount/Type: => 5 Cigarettes daily Family History Family History, If Any: MOTHER (PVD, always had purple feet). FH: CAD (coronary artery disease) FH: myocardial infarction relation unknown (HTN, Diabetee, Bipolar disorder and Depression). Hx Contributory? No (SOWMYA HERNANDEZ) Review of Systems Review of Systems Constitutional: Reports: no symptoms. EENTM: Reports: no symptoms. Respiratory: Reports: no symptoms. Cardiovascular: Reports: no symptoms. Gastrointestinal/Abdominal: Reports: no symptoms. Genitourinary: Reports: no symptoms. Musculoskeletal: Reports: see HPI. Skin: Reports: see HPI. Neurological/Psychological: Reports: no symptoms. Hematologic/Endocrine: Reports: no symptoms. Immunological: Reports: no symptoms. All Other Systems: Reviewed and Negative (SOWMYA HERNANDEZ) Physical Exam Physical Exam General Appearance: well developed/nourished Head: atraumatic Eyes: Bilateral: normal appearance. Ears, Nose, Throat: normal ENT inspection, hearing grossly normal Neck: normal inspection Cardiovascular/Respiratory: no respiratory distress Back: normal inspection Leg Left: normal range of motion, no erythema, no warmth, Leg Right: open wound,no erythema, no acute changes compared to previous visits, no discharge, Neurologic/Tendon: responds to pain, no evidence tendon injury Skin: intact, normal color, warm/dry Lymphatic: no anterior cervical pat (SOWMYA HERNANDEZ) Progress Differential Diagnosis: arterial insufficiency, cellulitis, CHF, compartment syndrome, contusion, dislocation, DVT, fracture, gout, septic arthritis, sprain, tendon injury Plan of Care: 11/13/2016 8:35:07 PM Upon telling the patient that she was knocked any get any type of IM pain medications here for IV pain medications she became very belligerent and started swearing and cursing in the hallway. She stood up and punched the wall. She then made a comment to Jorge Rosales that she was going to hurt herself. She then tried to walk out and started to swing him push at security. She continued to swear. Patient became aggressive and violent. Patient brought down to [facility] and will be seeing crisis. Hand-Off Endorsed To: DEBO ROSALES MD Endorsed Time: 2037 Pending: consult (SOWMYA HERNANDEZ) Comments: 11/13/2016 8:41:47 PM I evaluated Ms. Garces personally after she stated she wanted to see another physician. She was notified that there are only 3 providers here in the emergency department. She questioned what we're going to do for her chronic leg pain. She states that her primary care doctor has set her up with a study to check the circulation of her legs. She then stated that she wasn't sure how long she could take this. I asked that she follow up with her primary care physician to help manage her pain. At that point she became very profane and threatening. She stated that she wasn't sure how long she could take this any longer and that she was going to do something about it. She stated that she would likely come back to the emergency department WE "wouldn't like the way she returned". It was clear to me that the patient was insinuating that she would commit suicide given her long-standing pain concerns. I informed her that we would need to have her evaluated by crisis at which point she became even more profane and threatening. She punched the wall. She then attempted to leave the emergency department. Security was contacted and she began pushing the security officers. The patient showed that she was a danger not only to herself but others as well. She was angry and agitated and I felt she was incapable of making an informed medical decision regarding her disposition. Has been escorted to one of the behavioral health rooms pending an evaluation by our outreach clinician. 11/14/2016 7:01:28 AM patient signed out to Dr. Hernandez at shift meter changes records clerk. (KATHI OSBORN,DEBO Tirado) Departure Departure Disposition: HOME OR SELF CARE Condition: Stable Clinical Impression Primary Impression: Chronic leg pain Secondary Impressions: Suicidal behavior Referrals: SAL LOERA APRN (PCP/Family) Additional Instructions: Follow-up with your primary care doctor and vascular doctor. Please go over all results of today's visit with your primary care doctor. Contact your primary care doctor to let them know you were here in the emergency room. There may be nonspecific findings which may not be related to your visit today here in the emergency room but may require further evaluation and chronic monitoring by your primary care doctor. If you had a laceration today the chance of foreign body always remains. You should follow-up with your primary care doctor for recheck in 3-5 days for a wound check. If you had an x-ray done there is a chance that a fracture could have been missed on initial read and you should follow-up with your primary care doctor for repeat x-rays if symptoms persist. If your blood pressure was elevated here in the emergency room please have rechecked by her primary care doctor within the next 48 hours by your primary care doctor. If you were prescribed a narcotic here in the emergency room or any type of controlled substances you're not allowed to drive while taking this medication or operate any type of heavy machinery. Narcotics can make you feel lightheaded dizziness nausea and can cause constipation. You may need to peanut picker a stool softener. Thank you for choosing [facility] emergency room. Please return to the emergency room immediately if you have any other concerns worsening of symptoms. Departure Forms: Customer Survey General Discharge Information (RENA BYRD,SOWMYA)
[2016-11-14 06:32] VITALS: BP 163/70
--- NOTE | 2016-11-14 15:38 | Cons- Psychiatry ---
Psychiatric Consult Date of Consult: 11/14/16 Allergies: Coded Allergies: NO KNOWN ALLERGIES (11/05/16) Past History Past Medical History Neurological: status post TBI EENT: NONE Cardiovascular: chronic venous insuff, hypertension, PVD Respiratory: asthma Gastrointestinal: NONE Hepatic: hepatitis B Renal: HISTORY OF RENAL FAILURE Musculoskeletal: LEFT BKA Psychiatric: substance abuse (OPIOIDS), ptsd, CHRONIC PAIN SYNDROME, BIPOLAR, eToh ABUSE, Endocrine: diabetes (2) Blood Disorders: NONE Cancer(s): NONE MANAGER IMPLEMENTATION/Reproductive: 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 Physical Limitations (Interventions): Uses a cane-amputated toes (1 toe left), ulcer sores on legs h/o of stents. Psychiatric Treatment History Diagnosis: Bipolar disorder, cannabis abuse, heroin dependence, remote history of alcohol dependence. Risk Factors: chronic/serious med cond., high anxiety/distress, SA/MH hospitalized, substance abuse, poor impulse control Assessment/Plan Mental Status Mental Status Exam: Alert, angry at first, lunch tray scattered on floor, "I'm a sloppy eater." The patient calmed herself and explained that she wanted to go home. Denies SI/HI. Denies AVH, presents no aung delusions. Denies alcohol use ("I have 30 years sober.") [address]/rec drug use. Living with her 21 y.o. son, and has a new BF, Jasbir, who she says takes care of her. Folstein/MMSE today 22/30, but one point addedd for only 9th grade education for a final score of 23/30, suggestive of no cognitive impairment. CT JOB PLACEMENT COUNSELOR Aware as of 11/14/16: 11/06/16 filled Percocet 5/325 mg #21 tabs for 7 days by Frank Solis APRN Elements of capacity: 1. Communicates a choice - Preferred treatment option is her new pain communication manager in [place], Marii Solis APRN (Probably Dr. Sidhu's office). Next visit on 11/16/16. 2. Understands the relevant information - Patient paraphrases the difference between her providers; Dr. Aung Rico PCP at [facility] for torodol (He will not prescribe opiates for her) vs. Ms. Solis, PRIMER CHARGER for opiates vs. [facility], which is not appropriate since she has other providers for these medications. 3. She appreciates the situation and its consequences - The patient verbalizes understanding that the ED is the wrong place for asking for pain medications, even for inadequate pain control, and will contact her PCP and pain communication manager. She has just started with her new pain communication manager, and understands that the provider started her on "only" Percocet to evaluate how she does with this. 4. She is able to engage in a reasonable discussion about her treatment options. Conclusion: She has the capacity to decide who to call about her pain matters, and will contact her PCP, Dr. Rico for torodol, if needed, until her pain regimen is stable with Ms. Solis. Lab Results: Urine toxocology not performed Diffential Diagnosis: Chronic pain syndrome Bipolar disorder, on Seroquel History of Cannabis abuse History of Heroin dependence Remote history of alcohol dependence. Impression: The patient had been given Percocet in the ED in August on two occasions, and tramodol in September 2015. She had been transitioning from one pain communication manager, where she was discharged, and has just initiated care at a new pain communication manager in [place]. She is unable to obtain opiates from her PCP at [facility], because she had tested positive for cocaine in the past. She denies using any street/rec drugs, and has been sober from alcohol for many years. she is followed by Dr. Moe Zayas for her chronic foot pain, and is s/ p amputations on her feet. She would benefit from a consistent strategy from her providers regarding pain management, now that she is under care for pain management again. She is not suicidal, nor delirious, nor psychotic. She is clear for discharge from a psychiatry standpoint. I have left a copy of her CT JOB PLACEMENT COUNSELOR report in the chart. Please reconsult if other psychiatric matters arise. Provisional Treatment Plan: 1. The patient will not present for pain management to the ED, but will contact her PCP or pain communication manager. She is welcome to come to the hospital for any other reason, even if she is experiencing chronic pain exacerbation at that time. 2. Pain facility maintenance manager on 11/16/2016 in [place]. The patient will discuss her frequent ED presentations for pain with the provider. 3. She has capacity to make a decision about where to call for pain management problems. The patient is not suicidal, and may be discharged to home. Please reconsult if other ;sychiatric matters arise. Francis Almanza APRN, Pager [phone].
== END 2016-11-14 15:29 ==
LOC: ERH 19:37
DX: M79.604 Pain in right leg (principal); M79.605 Pain in left leg; R45.851 Suicidal ideations
CPT/HCPCS: 80307; 99232; G0480; J1885

== ENCOUNTER 2016-12-25 11:27 | Emergency (ER) | payer OTHER ==
[~2016-12-25] VITALS: Ht 175.3 cm; Wt 120.7 kg
--- NOTE | 2016-12-25 11:46 | ED PSYCHIATRIC COMPLAINT ---
History of Present Illness General Chief Complaint: General Adult Stated Complaint: BIBA, ? MORPHINE OD Source: patient Exam Limitations: no limitations Vital Signs & Intake/Output Vital Signs & Intake/Output Vital Signs Date Time Temp Pulse Resp B/P Pulse O2 O2 Flow FiO2 Ox Delivery Rate 12/25 1715 98.9 62 18 111/58 97 12/25 1444 97.2 82 18 126/84 98 Room Air 12/25 1257 Room Air 12/25 1142 97.0 76 20 122/81 98 Room Air Allergies Coded Allergies: NO KNOWN ALLERGIES (11/05/16) Reconcile Medications Doxycycline Hyclate 100 MG TABLET 1 TAB PO BID cellulitis Duloxetine Hydrochloride (Cymbalta) 30 MG CAPSULE.DR 1 CAP PO DAILY NEUROPATHY (Reported) Gabapentin 300 MG CAPSULE 2 CAP PO TID NEUROPATHY (Reported) Glimepiride 4 MG TABLET 1 TAB PO DAILY DM (Reported) Ibuprofen 600 MG TABLET 1 TAB PO Q6-PRN PRN leg pain with food Insulin Glargine,Hum.rec.anlog (Lantus Solostar) 100 UNIT/1 ML INSULN.PEN 25 UNIT SC QAM DIABETES (Reported) Insulin Lispro (Humalog Kwikpen U-100) 100 UNIT/ML INSULN.PEN 1 UNITS SC TIDAC DM (Reported) SLIDING SCALE Ketorolac Tromethamine 10 MG TABLET 1 TAB PO BID PRN BREAKTHROUGH PAIN Meloxicam 15 MG TABLET 1 TAB PO DAILY PAIN/INFLAMMATION (Reported) Metformin HCl (Glucophage) 1,000 MG TABLET 1 TAB PO BID DIABETES (Reported) Metoprolol Succinate 50 MG TAB.ER.24H 1 TAB PO DAILY HTN (Reported) Pantoprazole Sodium 40 MG TABLET.DR 1 TAB PO DAILY GERD (Reported) Prazosin Hydrochloride (Minipress) 1 MG CAPSULE 1 CAP PO QPM NIGHTMARES ( Reported) Quetiapine Fumarate 400 MG TABLET 1 TAB PO QPM SLEEP (Reported) Triage Note: PT BIBA TO TRIAGE FOR TAKING TOO MUCH MORPHINE. PT STATES SHE IS SUPPOSED TO TAKE 30MG EVERY 8 HOURS. PT STATES SHE TOOK 90MG AROUND 0900. PT STATES SHE TOOK EXTRA DOSES ON PURPOSE. VISITING NURSE ARRIVED AND WAS CONCERNED WITH AMOUNT OF MORPHINE PT TOOK. PT STATES "I'M STILL IN PAIN". PT TAKEN TO ROOM 13 FOR EVAL. Triage Nurses Notes Reviewed? yes Onset: Abrupt Duration: hour(s): Timing: recent history HPI: 12/25/16 1:20 PM This 52-year-old female presents to the emergency department for taking too many of her medications earlier today. She admits that she took extra morphine sulfate. She denies wanting to kill herself. She just said she needed it for pain. The onset of the symptoms were abrupt, the duration was just today, the severity is significant as her symptoms required her to come to the emergency department for care. In the emergency department she is somewhat sleepy but responds appropriately. She denies suicidal ideation at this time. Labs have been requested and a crisis consultation has been requested. Past History Travel History Traveled to [place] past 21 day No Medical History Any Pertinent Medical History? 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: BILATERAL OOPHERECTOMY Other Medical Hx: hep B, osteomyelitis, peripheral vascular disease History of MRSA: Yes History of VRE: No History of CDIFF: No Surgical History Surgical History: LEFT FOOT TRANSMETATARSAL AMPUTATION, VASCULAR PROCEDURE LOWER LEGS status post lower extremity revascularization Psychosocial History Who do you live with Other (see notes) Services at Home Home Health Aide, Nursing What is your primary language Scottish Tobacco Use: Current Daily Use Daily Tobacco Use Amount/Type: => 5 Cigarettes daily ETOH Use: denies use Illicit Drug Use: denies illicit drug use Family History Family History, If Any: MOTHER (PVD, always had purple feet). FH: CAD (coronary artery disease) FH: myocardial infarction relation unknown (HTN, Diabetee, Bipolar disorder and Depression). Hx Contributory? No Review of Systems Review of Systems Constitutional: Denies: fever. EENTM: Reports: no symptoms. Respiratory: Reports: no symptoms. Cardiovascular: Reports: no symptoms. GI: Reports: no symptoms. Genitourinary: Reports: no symptoms. Musculoskeletal: Reports: no symptoms. Skin: Reports: no symptoms. Neurological/Psychological: Reports: no symptoms. Hematologic/Endocrine: Reports: no symptoms. Physical Exam Physical Exam General Appearance: alert, awake, anxious, mild distress Head: atraumatic, normal appearance Eyes: Bilateral: normal appearance, PERRL, EOMI. Ears, Nose, Throat: normal ENT inspection Neck: normal inspection, full range of motion Respiratory: chest non-tender, no respiratory distress Cardiovascular: regular rate/rhythm Gastrointestinal: non-tender Extremities: edema Neurological/Psychiatric: awake, alert, anxious, oriented x 3 Appearance/Memory/Insight: appropriate insight Behavoir/Eye Contact/Speech: cooperative Thoughts/Hallucinations: no apparent hallucination SAD PERSONS SAD PERSONS Response Value Age <19 or >45 years? yes 1 Previous Attempts/Psych Care yes 1 Excessive Ethanol/Drug Use? yes 1 Single//? yes 1 Social Support? has support 0 Total 4 SAD PERSONS Done? yes, patient not suicidal Progress Differential Diagnosis: drug intoxication, drug overdose, drug withdrawal Plan of Care: Orders Procedure Date/time Status Heart Healthy Diet 12/25 D Active Continuous Observation Monitor 12/25 1309 Active URINE DRUG SCREEN FOR ER ONLY 12/25 1309 Complete ACETOMINOPHEN 12/25 1309 Complete SALICYLATE 12/25 1309 Complete ETHANOL 12/25 1309 Complete COMPREHENSIVE METABOLIC PANEL 12/25 1309 Complete CBC WITHOUT DIFFERENTIAL 12/25 1309 Complete EKG 12/25 1309 Active ED CRISIS PSYCH CONSULT 12/25 1309 Active Laboratory Tests 12/25/16 1615: Urine Opiates Screen > 4000.00 H, Methadone Screen 98, Barbiturate Screen < 60, Ur Phencyclidine Scrn < 6.00, Amphetamines Screen 121, U Benzodiazepines Scrn < 85, Urine Cocaine Screen 827 H, Urine Cannabis Screen > 80.00 H 12/25/16 1411: Anion Gap 9, Estimated GFR 57 L, BUN/Creatinine Ratio 21.0, Glucose 105 H, Calcium 8.9, Total Bilirubin 0.4, AST 20, ALT 30, Alkaline Phosphatase 77, Total Protein 7.1, Albumin 3.7, Globulin 3.4, Albumin/Globulin Ratio 1.1, CBC w Diff NO MAN DIFF REQ, RBC 3.86 L, MCV 79.2 L, MCH 25.9 L, RDW 18.1 H, MPV 7.4, Gran % 53.5, Lymphocytes % 35.6, Monocytes % 8.2, Eosinophils % 2.0, Basophils % 0.7, Absolute Granulocytes 4.3, Absolute Lymphocytes 2.9, Absolute Monocytes 0.7 H, Absolute Eosinophils 0.2, Absolute Basophils 0.1, PUBS MCHC 32.7 L, Salicylates < 1.0, Acetaminophen < 10.0 L, Serum Alcohol < 10.0 Initial ED EKG: NSR Departure Departure Disposition: HOME OR SELF CARE Condition: Stable Clinical Impression Primary Impression: Opiate abuse, continuous Referrals: LIZ BARNES APRN (PCP/Family) Departure Forms: Customer Survey General Discharge Information Comments 12/25/16 6:31 PM The patient was reevaluated. She is awake alert oriented 3 she denies any suicidal ideation she says that she merely took the medicines because she was having pain. Her home health aides have made arrangements that there will not leave unsupervised meds with her. She is therefore being discharged. She is comfortable with the plan. The patient declined wanting to speak with crisis. Her said Jamaal score is low. She denies suicidal ideation. She was discharged and instructed to follow -up with her doctor this week. Labs were unremarkable other than the elevated urine tox for opiates and cannabis and cocaine. Critical Care Note Critical Care Note Critical Care Time: 30-74 min
[2016-12-25 14:18] LABS: ABSOLUTE BASOPHIL COUNT 0.1 /CUMM (0.0-0.2); ABSOLUTE EOSINOPHIL COUNT 0.2 /CUMM (0.0-0.7); ABSOLUTE GRANULOCYTE CT 4.3 /CUMM (1.4-6.5); ABSOLUTE LYMPH COUNT 2.9 /CUMM (1.2-3.4); ABSOLUTE MONOCYTE COUNT 0.7 /CUMM (0.10-0.60); BASOPHIL % 0.7 % (0.0-2.0); GRANULOCYTE % 53.5 % (42.2-75.2); HEMATOCRIT 30.5 % (37-47); MEAN CORPUSCULAR HGB 25.9 PG (27.0-31.0); MEAN CORPUSCULAR HGB CONC 32.7 G/DL (33.0-37.0); MEAN CORPUSCULAR VOLUME 79.2 FL (81.0-99.0); MEAN PLATELET VOLUME 7.4 FL (7.4-10.4); PLATELET COUNT 358 /CUMM (130-400); RBC DISTRIBUTION WIDTH 18.1 % (11.5-14.5); RED BLOOD CELL CT 3.86 /CUMM (4.20-5.40); WHITE BLOOD CELL COUNT 8.1 /CUMM (4.8-10.8)
[2016-12-25 17:15] VITALS: BP 111/58
[2017-03-21] MEDS ORDERED: DOXYCYCLINE HY100 M4 PO (20:33)
== END 2016-12-25 18:41 ==
LOC: ERH 11:27
PROVIDERS: Emergency Medicine
DX: F11.10 Opioid abuse, uncomplicated (principal)
CPT/HCPCS: 80307; 93005; 93010; G0480

== ENCOUNTER 2017-02-23 13:22 | Emergency (ER) | payer OTHER ==
[~2017-02-23] VITALS: Ht 175.3 cm; Wt 125.6 kg
[2017-02-23 13:28] VITALS: BP 151/70
--- NOTE | 2017-02-23 14:12 | ED UPPER/LOWER EXTREMITY COMPL ---
History of Present Illness General Chief Complaint: Lower Extremity Problems Stated Complaint: BIBA FOR BILATERAL LEG PAIN, OPEN WOUNDS Source: patient Exam Limitations: no limitations Vital Signs & Intake/Output Vital Signs & Intake/Output Vital Signs Date Time Temp Pulse Resp B/P B/P Pulse O2 O2 Flow FiO2 Mean Ox Delivery Rate 02/23 1328 97.2 83 18 151/70 95 Room Air Allergies Coded Allergies: NO KNOWN ALLERGIES (11/05/16) Reconcile Medications Doxycycline Hyclate 100 MG TABLET 1 TAB PO BID cellulitis Duloxetine Hydrochloride (Cymbalta) 30 MG CAPSULE.DR 1 CAP PO DAILY NEUROPATHY (Reported) Gabapentin 300 MG CAPSULE 2 CAP PO TID NEUROPATHY (Reported) Glimepiride 4 MG TABLET 1 TAB PO DAILY DM (Reported) Ibuprofen 600 MG TABLET 1 TAB PO Q6-PRN PRN leg pain with food Insulin Glargine,Hum.rec.anlog (Lantus Solostar) 100 UNIT/1 ML INSULN.PEN 25 UNIT SC QAM DIABETES (Reported) Insulin Lispro (Humalog Kwikpen U-100) 100 UNIT/ML INSULN.PEN 1 UNITS SC TIDAC DM (Reported) SLIDING SCALE Ketorolac Tromethamine 10 MG TABLET 1 TAB PO BID PRN BREAKTHROUGH PAIN Meloxicam 15 MG TABLET 1 TAB PO DAILY PAIN/INFLAMMATION (Reported) Metformin HCl (Glucophage) 1,000 MG TABLET 1 TAB PO BID DIABETES (Reported) Metoprolol Succinate 50 MG TAB.ER.24H 1 TAB PO DAILY HTN (Reported) Pantoprazole Sodium 40 MG TABLET.DR 1 TAB PO DAILY GERD (Reported) Prazosin Hydrochloride (Minipress) 1 MG CAPSULE 1 CAP PO QPM NIGHTMARES ( Reported) Quetiapine Fumarate 400 MG TABLET 1 TAB PO QPM SLEEP (Reported) Triage Note: PT TO ROOM18 BIBA FROM HOME FOR BILAT LE PAIN 07/09. PT HAS CHRONIC OPEN WOUNDS TO BILAT [place] AND CURRENTLY ON MORPHINE 30MG TID FOR CHRONIC PAIN. PT MISSED HER PAIN MANAGEMENT APPOINTMENT YESTERDAY. REQUESTING MED REFILL. VSS. HX OF DIABETES,HTN,HEP B,LEFT FOOT AMPUTATION. Triage Nurses Notes Reviewed? yes Onset: Abrupt Duration: chronic Severity: severe Method of Injury: unknown No Modifying Factors: none HPI: 61-year-old female comes into emergency room with complaints of her chronic lower leg pain bilaterally with open wounds. Patient has peripheral vascular disease. Sharp pain. Continuous. Patient missed her doctor's appointment on Saturday for pain management. Patient comes in for further evaluation. Patient has a wound care nurse that comes in had her wounds dressed this morning already. Past History Travel History Traveled to [place] past 21 day No Medical History Any Pertinent Medical History? 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 FH: CAD (coronary artery disease) FH: myocardial infarction relation unknown (HTN, Diabetee, Bipolar disorder and Depression). Hx Contributory? No Review of Systems Review of Systems Constitutional: Reports: no symptoms. EENTM: Reports: no symptoms. Respiratory: Reports: no symptoms. Cardiovascular: Reports: no symptoms. Gastrointestinal/Abdominal: Reports: no symptoms. Genitourinary: Reports: no symptoms. Musculoskeletal: Reports: see HPI. Skin: Reports: see HPI. Neurological/Psychological: Reports: no symptoms. Hematologic/Endocrine: Reports: no symptoms. Immunological: Reports: no symptoms. All Other Systems: Reviewed and Negative Physical Exam Physical Exam General Appearance: well developed/nourished, mild distress Head: atraumatic Eyes: Bilateral: normal appearance. Ears, Nose, Throat: normal ENT inspection, hearing grossly normal Neck: normal inspection Cardiovascular/Respiratory: no respiratory distress Back: normal inspection Leg Left: open wounds see below Leg Right: open wound see below Neurologic/Tendon: responds to pain, no evidence tendon injury Skin: intact, normal color, warm/dry Lymphatic: no anterior cervical pat Comments: Patient has open wounds bilaterally, some mild erythema, no foul-smelling discharge, Progress Differential Diagnosis: arterial insufficiency, cellulitis, compartment syndrome , contusion, dislocation, DVT, fracture, gout, septic arthritis, sprain, tendon injury Plan of Care: Current Medications Sig/Macy Start time Last Medication Dose Stop Time Status Admin Ketorolac 30 MG ONCE ONE 02/23 1415 UNVr Tromethamine 02/23 1416 (Toradol) Comments: 02/23/2017 2:32:37 PM Patient will not get a prescription or any pain medication narcotic madrid here in the emergency room. Patient needs to follow-up with her pain management doctor as well as her primary care and vascular doctor. Patient has wound care nurse. Wounds appear to be baseline. Departure Departure Disposition: HOME OR SELF CARE Condition: Stable Clinical Impression Primary Impression: Chronic leg pain Referrals: LIZ BARNES APRN (PCP/Family) Additional Instructions: Please go over all results of today's visit with your primary care doctor. Contact your primary care doctor to let them know you were here in the emergency room. There may be nonspecific findings which may not be related to your visit today here in the emergency room but may require further evaluation and chronic monitoring by your primary care doctor. If you had a laceration today the chance of foreign body always remains. You should follow-up with your primary care doctor for recheck in 3-5 days for a wound check. If you had an x-ray done there is a chance that a fracture could have been missed on initial read and you should follow-up with your primary care doctor for repeat x-rays if symptoms persist. If your blood pressure was elevated here in the emergency room please have rechecked by her primary care doctor within the next 48 hours by your primary care doctor. If you were prescribed a narcotic here in the emergency room or any type of controlled substances you're not allowed to drive while taking this medication or operate any type of heavy machinery. Narcotics can make you feel lightheaded dizziness nausea and can cause constipation. You may need to apple picking supervisor a stool softener. Thank you for choosing [facility] emergency room. Please return to the emergency room immediately if you have any other concerns worsening of symptoms. Departure Forms: Customer Survey General Discharge Information
[2017-03-21] MEDS ORDERED: DOXYCYCLINE HY100 M4 PO (20:33)
== END 2017-02-23 14:30 ==
LOC: ERH 13:22
DX: G89.29 Other chronic pain (principal); M79.661 Pain in right lower leg; M79.662 Pain in left lower leg
CPT/HCPCS: 96372; J1885

== ENCOUNTER 2017-02-24 14:04 | Emergency (ER) | payer OTHER ==
--- NOTE | 2017-02-24 14:06 | ED UPPER/LOWER EXTREMITY COMPL ---
History of Present Illness General Chief Complaint: Lower Extremity Problems Stated Complaint: LEG PAIN Source: patient Exam Limitations: no limitations Vital Signs & Intake/Output Vital Signs & Intake/Output Vital Signs Date Time Temp Pulse Resp B/P B/P Pulse O2 O2 Flow FiO2 Mean Ox Delivery Rate 02/24 1410 98.2 80 16 98 Room Air Room Air Allergies Coded Allergies: No Known Allergies (02/24/17) Reconcile Medications Doxycycline Hyclate 100 MG TABLET 1 TAB PO BID cellulitis Duloxetine Hydrochloride (Cymbalta) 30 MG CAPSULE.DR 1 CAP PO DAILY NEUROPATHY (Reported) Gabapentin 300 MG CAPSULE 2 CAP PO TID NEUROPATHY (Reported) Glimepiride 4 MG TABLET 1 TAB PO DAILY DM (Reported) Ibuprofen 600 MG TABLET 1 TAB PO Q6-PRN PRN leg pain with food Insulin Glargine,Hum.rec.anlog (Lantus Solostar) 100 UNIT/1 ML INSULN.PEN 25 UNIT SC QAM DIABETES (Reported) Insulin Lispro (Humalog Kwikpen U-100) 100 UNIT/ML INSULN.PEN 1 UNITS SC TIDAC DM (Reported) SLIDING SCALE Ketorolac Tromethamine 10 MG TABLET 1 TAB PO BID PRN BREAKTHROUGH PAIN Meloxicam 15 MG TABLET 1 TAB PO DAILY PAIN/INFLAMMATION (Reported) Metformin HCl (Glucophage) 1,000 MG TABLET 1 TAB PO BID DIABETES (Reported) Metoprolol Succinate 50 MG TAB.ER.24H 1 TAB PO DAILY HTN (Reported) Pantoprazole Sodium 40 MG TABLET.DR 1 TAB PO DAILY GERD (Reported) Prazosin Hydrochloride (Minipress) 1 MG CAPSULE 1 CAP PO QPM NIGHTMARES ( Reported) Quetiapine Fumarate 400 MG TABLET 1 TAB PO QPM SLEEP (Reported) Triage Nurses Notes Reviewed? yes Onset: Abrupt Duration: constant, chronic Timing: recent history Severity: moderate, severe Pain/Injury Location: Bilateral: Leg. Method of Injury: unknown No Modifying Factors: none HPI: 61-year-old female comes into emergency room for further evaluation of bilateral chronic low leg pain with chronic wounds. Patient has been seen here many times for similar symptoms in the past. Patient missed her pain management consult on Saturday and did not get a refill on her chronic pain medication. Patient was seen here yesterday. Patient has a wound care nurse comes out daily. Sharp pain. Continuous. Denies any new associated symptoms. Past History Medical History Any Pertinent Medical History? 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 FH: CAD (coronary artery disease) FH: myocardial infarction relation unknown (HTN, Diabetee, Bipolar disorder and Depression). Hx Contributory? No Review of Systems Review of Systems Constitutional: Reports: no symptoms. EENTM: Reports: no symptoms. Respiratory: Reports: no symptoms. Cardiovascular: Reports: no symptoms. Gastrointestinal/Abdominal: Reports: no symptoms. Genitourinary: Reports: no symptoms. Musculoskeletal: Reports: see HPI. Skin: Reports: see HPI. Neurological/Psychological: Reports: no symptoms. Hematologic/Endocrine: Reports: no symptoms. Immunological: Reports: no symptoms. All Other Systems: Reviewed and Negative Physical Exam Physical Exam General Appearance: well developed/nourished, mild distress Head: atraumatic Eyes: Bilateral: normal appearance. Ears, Nose, Throat: normal ENT inspection, hearing grossly normal Neck: normal inspection Cardiovascular/Respiratory: no respiratory distress Back: normal inspection Leg Left: open wounds bilaterally,some mild erythema directly around the wound, no discharge, cap refill intact,pulses intact Neurologic/Tendon: no evidence tendon injury, no pulse deficit Skin: intact, normal color, warm/dry Lymphatic: no anterior cervical pat Progress Differential Diagnosis: arterial insufficiency, cellulitis, compartment syndrome , contusion, dislocation, DVT, fracture, gout, septic arthritis, sprain, tendon injury Plan of Care: 02/24/2017 2:33:13 PM This is a chronic issue for the patient. She needs to follow up with her vascular primary care doctor as well as her pain management doctor. No need for antibiotics. Departure Departure Disposition: HOME OR SELF CARE Condition: Stable Clinical Impression Primary Impression: Chronic leg pain Secondary Impressions: Chronic wound of extremity Referrals: LIZ BARNES APRN (PCP/Family) Additional Instructions: Follow-up with pain management. Follow-up with her doctor. Return if any other concerns worsening symptoms. Please go over all results of today's visit with your primary care doctor. Contact your primary care doctor to let them know you were here in the emergency room. There may be nonspecific findings which may not be related to your visit today here in the emergency room but may require further evaluation and chronic monitoring by your primary care doctor. If you had a laceration today the chance of foreign body always remains. You should follow-up with your primary care doctor for recheck in 3-5 days for a wound check. If you had an x-ray done there is a chance that a fracture could have been missed on initial read and you should follow-up with your primary care doctor for repeat x-rays if symptoms persist. If your blood pressure was elevated here in the emergency room please have rechecked by her primary care doctor within the next 48 hours by your primary care doctor. If you were prescribed a narcotic here in the emergency room or any type of controlled substances you're not allowed to drive while taking this medication or operate any type of heavy machinery. Narcotics can make you feel lightheaded dizziness nausea and can cause constipation. You may need to pepper picker a stool softener. Thank you for choosing [facility] emergency room. Please return to the emergency room immediately if you have any other concerns worsening of symptoms. Departure Forms: Customer Survey General Discharge Information
[2017-03-21] MEDS ORDERED: DOXYCYCLINE HY100 M4 PO (20:33)
== END 2017-02-24 14:17 ==
LOC: ERH 14:04
DX: G89.29 Other chronic pain (principal); M79.661 Pain in right lower leg; M79.662 Pain in left lower leg; S81.802A Unspecified open wound, left lower leg, initial encounter
CPT/HCPCS: 96372; J1885

== ENCOUNTER 2017-02-25 07:32 | Emergency (ER) | payer OTHER ==
[~2017-02-25] VITALS: Ht 175.3 cm; Wt 120.7 kg
--- NOTE | 2017-02-25 08:14 | ED GENERAL ADULT ---
History of Present Illness General Chief Complaint: General Adult Stated Complaint: REQUEST PAIN MED Source: patient, old records Exam Limitations: no limitations Vital Signs & Intake/Output Vital Signs & Intake/Output Vital Signs Date Time Temp Pulse Resp B/P B/P Pulse O2 O2 Flow FiO2 Mean Ox Delivery Rate 02/25 0835 128/78 02/25 0735 98.2 69 20 179/81 96 Room Air Allergies Coded Allergies: No Known Allergies (02/24/17) Reconcile Medications Doxycycline Hyclate 100 MG TABLET 1 TAB PO BID cellulitis Duloxetine Hydrochloride (Cymbalta) 30 MG CAPSULE.DR 1 CAP PO DAILY NEUROPATHY (Reported) Gabapentin 300 MG CAPSULE 2 CAP PO TID NEUROPATHY (Reported) Glimepiride 4 MG TABLET 1 TAB PO DAILY DM (Reported) Ibuprofen 600 MG TABLET 1 TAB PO Q6-PRN PRN leg pain with food Insulin Glargine,Hum.rec.anlog (Lantus Solostar) 100 UNIT/1 ML INSULN.PEN 25 UNIT SC QAM DIABETES (Reported) Insulin Lispro (Humalog Kwikpen U-100) 100 UNIT/ML INSULN.PEN 1 UNITS SC TIDAC DM (Reported) SLIDING SCALE Ketorolac Tromethamine 10 MG TABLET 1 TAB PO BID PRN BREAKTHROUGH PAIN Meloxicam 15 MG TABLET 1 TAB PO DAILY PAIN/INFLAMMATION (Reported) Metformin HCl (Glucophage) 1,000 MG TABLET 1 TAB PO BID DIABETES (Reported) Metoprolol Succinate 50 MG TAB.ER.24H 1 TAB PO DAILY HTN (Reported) Pantoprazole Sodium 40 MG TABLET.DR 1 TAB PO DAILY GERD (Reported) Prazosin Hydrochloride (Minipress) 1 MG CAPSULE 1 CAP PO QPM NIGHTMARES ( Reported) Quetiapine Fumarate 400 MG TABLET 1 TAB PO QPM SLEEP (Reported) Triage Note: 61 YO FEMALE TO ER C/O LEG PAIN. PT SEEN IN ER MULTIPLE TIMES FOR SAME AND D/T FOLLOW UP WITH PAIN MANAGEMENT. Triage Nurses Notes Reviewed? yes Onset: Afternoon Duration: hour(s):, constant, continues in ED Timing: recent history Injury Environment: home Severity: moderate No Modifying Factors: none LMP (ages 10-50): post menopausal : No Patient currently breastfeeds: No HPI: Patient again reports lower extremity pain missing her appointment 3 days prior to admission. She denies fever chills nausea vomiting diarrhea abdominal pain chest pain shortness breath headache dysuria bleeding. Past History Travel History Traveled to [place] past 21 day No Medical History Any Pertinent Medical History? see below for history Neurological: status post TBI EENT: NONE Cardiovascular: chronic venous insuff, hypertension, PVD Respiratory: asthma Gastrointestinal: NONE Hepatic: hepatitis B Renal: HISTORY OF RENAL FAILURE Musculoskeletal: LEFT BKA Psychiatric: substance abuse (OPIOIDS), ptsd, CHRONIC PAIN SYNDROME, BIPOLAR, eToh ABUSE, Endocrine: diabetes (2) Blood Disorders: NONE Cancer(s): NONE CARE ADMINISTRATIVE TECH/Reproductive: BILATERAL OOPHERECTOMY Other Medical Hx: hep B, osteomyelitis, peripheral vascular disease History of MRSA: Yes History of VRE: No History of CDIFF: No Surgical History Surgical History: LEFT FOOT TRANSMETATARSAL AMPUTATION, VASCULAR PROCEDURE LOWER LEGS status post lower extremity revascularization Psychosocial History Who do you live with Other (see notes) Services at Home Home Health Aide, Nursing What is your primary language Surinamese Tobacco Use: Never used Family History Family History, If Any: MOTHER (PVD, always had purple feet). FH: CAD (coronary artery disease) FH: myocardial infarction relation unknown (HTN, Diabetee, Bipolar disorder and Depression). Hx Contributory? No Review of Systems Review of Systems Constitutional: Reports: no symptoms. EENTM: Reports: no symptoms. Respiratory: Reports: no symptoms. Cardiovascular: Reports: no symptoms. GI: Reports: no symptoms. Genitourinary: Reports: no symptoms. Musculoskeletal: Reports: see HPI, joint pain. Skin: Reports: see HPI, rash. Neurological/Psychological: Reports: no symptoms. Hematologic/Endocrine: Reports: no symptoms. Immunologic/Allergic: Reports: no symptoms. All Other Systems: Reviewed and Negative Physical Exam Physical Exam General Appearance: well developed/nourished, alert, awake, anxious, mild distress, obese Head: atraumatic, normal appearance Eyes: Bilateral: normal appearance, PERRL, EOMI. Ears, Nose, Throat: normal pharynx, normal ENT inspection Neck: normal inspection, supple, full range of motion, no midline tenderness Respiratory: normal breath sounds, chest non-tender, no respiratory distress, quiet respiration, lungs clear Cardiovascular: regular rate/rhythm, normal peripheral pulses, norml femoral pulses equa Peripheral Pulses: 4+ carotid (R), 4+ carotid (L) Gastrointestinal: normal bowel sounds, soft, non-tender, no organomegaly Back: normal inspection, normal range of motion Extremities: normal capillary refill Neurologic/Psych: no motor/sensory deficits, awake, alert, oriented x 3, normal mood/affect, 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 Skin: rash (chronic bilateral lower extrem) Lymphatic: no anterior cervical pat Core Measures ACS in differential dx? No CVA/TIA Diagnosis: No Severe Sepsis Present: No Septic Shock Present: No Progress Differential Diagnoses I considered the following diagnoses in my evaluation of the patient: chronic pain syndrome Plan of Care: ibuprofen Initial ED EKG: none Departure Departure Time of Disposition: 811 Disposition: HOME OR SELF CARE Condition: Stable Clinical Impression Primary Impression: Chronic pain disorder Referrals: LIZ BARNES APRN (PCP/Family) Departure Forms: Customer Survey General Discharge Information Critical Care Note Critical Care Note Critical Care Time: non-applicable
[2017-02-25 08:35] VITALS: BP 128/78
[2017-03-21] MEDS ORDERED: DOXYCYCLINE HY100 M4 PO (20:33)
== END 2017-02-25 08:39 ==
LOC: ERH 07:32
DX: G89.4 Chronic pain syndrome (principal)
CPT/HCPCS: J7508

== ENCOUNTER 2017-02-27 00:34 | Emergency (ER) | payer OTHER ==
[~2017-02-27] VITALS: Ht 176.5 cm; Wt 99.8 kg
[2017-02-27 00:50] VITALS: BP 138/75
--- NOTE | 2017-02-27 01:53 | ED GENERAL ADULT ---
History of Present Illness General Chief Complaint: Lower Extremity Problems Stated Complaint: BIBA PT C/O BILAT LEG PAIN Source: patient, old records, EMS Exam Limitations: no limitations Vital Signs & Intake/Output Vital Signs & Intake/Output Vital Signs Date Time Temp Pulse Resp B/P B/P Pulse O2 O2 Flow FiO2 Mean Ox Delivery Rate 02/27 0050 98.0 78 18 138/75 94 Room Air Allergies Coded Allergies: No Known Allergies (02/24/17) Reconcile Medications Doxycycline Hyclate 100 MG TABLET 1 TAB PO BID cellulitis Duloxetine Hydrochloride (Cymbalta) 30 MG CAPSULE.DR 1 CAP PO DAILY NEUROPATHY (Reported) Gabapentin 300 MG CAPSULE 2 CAP PO TID NEUROPATHY (Reported) Glimepiride 4 MG TABLET 1 TAB PO DAILY DM (Reported) Ibuprofen 600 MG TABLET 1 TAB PO Q6-PRN PRN leg pain with food Insulin Glargine,Hum.rec.anlog (Lantus Solostar) 100 UNIT/1 ML INSULN.PEN 25 UNIT SC QAM DIABETES (Reported) Insulin Lispro (Humalog Kwikpen U-100) 100 UNIT/ML INSULN.PEN 1 UNITS SC TIDAC DM (Reported) SLIDING SCALE Ketorolac Tromethamine 10 MG TABLET 1 TAB PO BID PRN BREAKTHROUGH PAIN Meloxicam 15 MG TABLET 1 TAB PO DAILY PAIN/INFLAMMATION (Reported) Metformin HCl (Glucophage) 1,000 MG TABLET 1 TAB PO BID DIABETES (Reported) Metoprolol Succinate 50 MG TAB.ER.24H 1 TAB PO DAILY HTN (Reported) Pantoprazole Sodium 40 MG TABLET.DR 1 TAB PO DAILY GERD (Reported) Prazosin Hydrochloride (Minipress) 1 MG CAPSULE 1 CAP PO QPM NIGHTMARES ( Reported) Quetiapine Fumarate 400 MG TABLET 1 TAB PO QPM SLEEP (Reported) Triage Note: TRIAGE: BIBA FROM HOME C/O BILATERAL LEG 10/10 PAIN, CHRONIC. SEEN HERE MULTIPLE TIMES THIS WEEK FOR SAME. SAW WOUND CLINIC TODAY AND NEW DRESSINGS WERE APPLIED TO BILATERAL FEET. REPORTS "START PAIN MGMT TOMORROW." PATIENT OFFERED TYLENOL/MOTRIN IN TRIAGE, STATES "I DON'T WANT THAT, IT DOES NOTHING FOR ME." Triage Nurses Notes Reviewed? yes HPI: Patient brought in by ambulance with complaints of an acute exacerbation of chronic pain to both lower legs. Patient was seen at the wound center today and her wound was cleaned out with a scalpel. Patient states that since then she has been having 10 out of 10 pain to both lower legs. The pain is burning in nature. There are no aggravating or mitigating factors. It radiates into both legs. There is no back pain. There is no fevers or chills. Patient is due to see pain management later today. Past History Travel History Traveled to [place] past 21 day No Medical History Any Pertinent Medical History? 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/Reproductive: BILATERAL OOPHERECTOMY Other Medical Hx: hep B, osteomyelitis, peripheral vascular disease History of MRSA: Yes History of VRE: No History of CDIFF: No Surgical History Surgical History: LEFT FOOT TRANSMETATARSAL AMPUTATION, VASCULAR PROCEDURE LOWER LEGS status post lower extremity revascularization Psychosocial History Who do you live with Other (see notes) Services at Home Home Health Aide, Nursing What is your primary language Georgian Tobacco Use: Current Daily Use Daily Tobacco Use Amount/Type: => 5 Cigarettes daily ETOH Use: QUIR 30 YEARS AGO Illicit Drug Use: denies illicit drug use Family History Family History, If Any: MOTHER (PVD, always had purple feet). FH: CAD (coronary artery disease) FH: myocardial infarction relation unknown (HTN, Diabetee, Bipolar disorder and Depression). Hx Contributory? No Review of Systems Review of Systems Constitutional: Reports: no symptoms. Respiratory: Reports: no symptoms. Cardiovascular: Reports: no symptoms. GI: Reports: no symptoms. Musculoskeletal: Reports: see HPI. Neurological/Psychological: Reports: no symptoms. Immunologic/Allergic: Reports: no symptoms. Physical Exam Physical Exam General Appearance: well developed/nourished, alert, awake Head: atraumatic, normal appearance Eyes: Bilateral: PERRL, EOMI. Neck: normal inspection, supple, full range of motion Respiratory: normal breath sounds, chest non-tender, no respiratory distress, lungs clear Cardiovascular: regular rate/rhythm, normal peripheral pulses Back: normal inspection, normal range of motion Extremities: CHRONIC ISCHEMIC CHANGES, STATUS POST LEFT METATARSAL AMPUTATION Neurologic/Psych: no motor/sensory deficits, awake, alert, oriented x 3 Skin: intact, warm/dry Lymphatic: no anterior cervical pat Core Measures ACS in differential dx? No CVA/TIA Diagnosis: No Severe Sepsis Present: No Septic Shock Present: No Progress Differential Diagnoses I considered the following diagnoses in my evaluation of the patient: [Acute exacerbation of chronic pain] Plan of Care: Current Medications Sig/Macy Start time Last Medication Dose Stop Time Status Admin Ibuprofen 800 MG ONCE ONE 02/27 200 UNVr (Motrin) 02/27 201 Initial ED EKG: none Departure Departure Disposition: HOME OR SELF CARE Condition: Stable Clinical Impression Primary Impression: Leg pain, bilateral Referrals: LIZ BARNES APRN (PCP/Family) Additional Instructions: Follow-up with pain management. Return for any concerns. Departure Forms: Customer Survey General Discharge Information Critical Care Note Critical Care Note Critical Care Time: non-applicable
[2017-02-27] MEDS ORDERED: SEROQUEL400 M1 PO (02:18)
[2017-03-21] MEDS ORDERED: DOXYCYCLINE HY100 M4 PO (20:33)
== END 2017-02-27 02:45 ==
LOC: ERH 00:34
DX: M79.604 Pain in right leg (principal); M79.605 Pain in left leg

== ENCOUNTER 2017-03-10 05:53 | Emergency (ER) | payer OTHER ==
[~2017-03-10] VITALS: Ht 167.6 cm; Wt 99.8 kg
[~2017-03-10 05:53] MED LIST changes: +SEROQUEL400 M1 PO
--- NOTE | 2017-03-10 06:18 | ED UPPER/LOWER EXTREMITY COMPL ---
History of Present Illness General Chief Complaint: Lower Extremity Problems Stated Complaint: BIBA, BILATERAL LEG PAIN Source: patient Exam Limitations: SHORT TEMPERED EASILY AGITATED Vital Signs & Intake/Output Vital Signs & Intake/Output ED Intake and Output 03/11 0000 03/10 1200 Intake Total 0 Output Total Balance 0 Intake, Oral 0 Patient 220 lb Weight Weight Estimated Measurement Method Allergies Coded Allergies: No Known Allergies (02/24/17) Reconcile Medications Duloxetine Hydrochloride (Cymbalta) 30 MG CAPSULE.DR 1 CAP PO DAILY NEUROPATHY (Reported) Gabapentin 300 MG CAPSULE 2 CAP PO TID NEUROPATHY (Reported) Glimepiride 4 MG TABLET 1 TAB PO DAILY DM (Reported) Ibuprofen 600 MG TABLET 1 TAB PO Q6-PRN PRN leg pain with food Insulin Glargine,Hum.rec.anlog (Lantus Solostar) 100 UNIT/1 ML INSULN.PEN 25 UNIT SC QAM DIABETES (Reported) Insulin Lispro (Humalog Kwikpen U-100) 100 UNIT/ML INSULN.PEN 1 UNITS SC TIDAC DM (Reported) SLIDING SCALE Ketorolac Tromethamine 10 MG TABLET 1 TAB PO BID PRN BREAKTHROUGH PAIN Meloxicam 15 MG TABLET 1 TAB PO DAILY PAIN/INFLAMMATION (Reported) Metformin HCl (Glucophage) 1,000 MG TABLET 1 TAB PO BID DIABETES (Reported) Metoprolol Succinate 50 MG TAB.ER.24H 1 TAB PO DAILY HTN (Reported) Pantoprazole Sodium 40 MG TABLET.DR 1 TAB PO DAILY GERD (Reported) Prazosin Hydrochloride (Minipress) 1 MG CAPSULE 1 CAP PO QPM NIGHTMARES ( Reported) Quetiapine Fumarate 400 MG TABLET 1 TAB PO QPM SLEEP (Reported) Quetiapine Fumarate (Seroquel) 400 MG TABLET 1 TAB PO QPM SLEEP (Reported) Triage Note: PT BIBA FROM HOME WITH COMPLAINTS OF CHRONIC BILATERAL LOWER EXTREMITY PAIN. PT STATES SHE DOES NOT HAVE ANY MEDICATION AT HOME TO EASE PAIN. Triage Nurses Notes Reviewed? yes HPI: Patient presents for evaluation of severe bilateral leg pains that have been getting worse over the past 2 weeks. Patient describes the pain does severe constant and sharp. She does not take any medications for her pains despite the fact that they have been present for years. She has not seen her primary care physician recently as well. Nothing seems to make her leg pains feel better. She has chronic wounds of the lower extremities that are being cared for by the [facility] wound care center and she has a visiting nurse to change her dressings. Past History Travel History Traveled to [place] past 21 day No Medical History Any Pertinent Medical History? 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 FH: CAD (coronary artery disease) FH: myocardial infarction relation unknown (HTN, Diabetee, Bipolar disorder and Depression). Hx Contributory? No Review of Systems Review of Systems Constitutional: Reports: no symptoms. EENTM: Reports: no symptoms. Respiratory: Reports: no symptoms. Cardiovascular: Reports: no symptoms. Gastrointestinal/Abdominal: Reports: no symptoms. Genitourinary: Reports: no symptoms. Musculoskeletal: Reports: see HPI. Skin: Reports: no symptoms. Neurological/Psychological: Reports: no symptoms. Hematologic/Endocrine: Reports: no symptoms. Immunological: Reports: no symptoms. All Other Systems: Reviewed and Negative Physical Exam Physical Exam General Appearance: SEE BELOW Comments: Gen.: Well-nourished, well-developed, no acute respiratory distress. Head: Normocephalic, atraumatic. Eyes: Normal inspection bilaterally Ears: Normal inspection bilaterally Nose: Normal inspection, nasal cannula in place Throat/mouth : Moist mucosa Neck: Supple, full range of motion, no goiter Heart: Regular rate and rhythm Lungs: Quiet respirations Back: Normal range of motion Extremities: Left lower extremity: Partial foot amputation, dressing over the left ankle intact with no staining, right lower extremity: Ankle dressing intact with no staining. Normal range of motion of both extremities. Distal lower extremities have good color perfusion and warmth. Neurologic: Cranial nerves grossly intact, speech is clear Skin: warm and dry Psychiatric: Calm, cooperative, no apparent delusions or hallucinations Progress Differential Diagnosis: CHRONIC PAIN Plan of Care: PMD follow-up Departure Departure Disposition: HOME OR SELF CARE Condition: Stable Clinical Impression Primary Impression: Chronic leg pain Referrals: LIZ BARNES APRN (PCP/Family) Departure Forms: Customer Survey General Discharge Information
[2017-03-11] MEDS ORDERED: DICLOFENAC SODI50 M3 PO (23:52)
[2017-03-21] MEDS ORDERED: DOXYCYCLINE HY100 M4 PO (20:33)
== END 2017-03-10 07:14 ==
LOC: ERH 05:53
DX: G89.29 Other chronic pain (principal); M79.604 Pain in right leg; M79.605 Pain in left leg
CPT/HCPCS: 99281

== ENCOUNTER 2017-03-11 23:28 | Emergency (ER) | payer OTHER ==
[~2017-03-11] VITALS: Ht 172.7 cm; Wt 72.6 kg
--- NOTE | 2017-03-11 23:34 | ED UPPER/LOWER EXTREMITY COMPL ---
History of Present Illness General Chief Complaint: General Adult Stated Complaint: BIBA LEG PAIN Source: patient Exam Limitations: no limitations Vital Signs & Intake/Output Vital Signs & Intake/Output Vital Signs Date Time Temp Pulse Resp B/P B/P Pulse O2 O2 Flow FiO2 Mean Ox Delivery Rate 03/11 2336 Room Air 03/11 2335 98.0 90 20 118/64 95 Room Air ED Intake and Output 03/12 0000 03/11 1200 Intake Total 0 Output Total Balance 0 Intake, Oral 0 Patient 160 lb Weight Weight Estimated Measurement Method Allergies Coded Allergies: No Known Allergies (02/24/17) Reconcile Medications Diclofenac Sodium 50 MG TABLET.DR 1 TAB PO BID PRN PAIN Duloxetine Hydrochloride (Cymbalta) 30 MG CAPSULE.DR 1 CAP PO DAILY NEUROPATHY (Reported) Gabapentin 300 MG CAPSULE 2 CAP PO TID NEUROPATHY (Reported) Glimepiride 4 MG TABLET 1 TAB PO DAILY DM (Reported) Ibuprofen 600 MG TABLET 1 TAB PO Q6-PRN PRN leg pain with food Insulin Glargine,Hum.rec.anlog (Lantus Solostar) 100 UNIT/1 ML INSULN.PEN 25 UNIT SC QAM DIABETES (Reported) Insulin Lispro (Humalog Kwikpen U-100) 100 UNIT/ML INSULN.PEN 1 UNITS SC TIDAC DM (Reported) SLIDING SCALE Ketorolac Tromethamine 10 MG TABLET 1 TAB PO BID PRN BREAKTHROUGH PAIN Meloxicam 15 MG TABLET 1 TAB PO DAILY PAIN/INFLAMMATION (Reported) Metformin HCl (Glucophage) 1,000 MG TABLET 1 TAB PO BID DIABETES (Reported) Metoprolol Succinate 50 MG TAB.ER.24H 1 TAB PO DAILY HTN (Reported) Pantoprazole Sodium 40 MG TABLET.DR 1 TAB PO DAILY GERD (Reported) Prazosin Hydrochloride (Minipress) 1 MG CAPSULE 1 CAP PO QPM NIGHTMARES ( Reported) Quetiapine Fumarate 400 MG TABLET 1 TAB PO QPM SLEEP (Reported) Quetiapine Fumarate (Seroquel) 400 MG TABLET 1 TAB PO QPM SLEEP (Reported) Triage Note: PT BIBA C/O CHRONIC 10/10 LEG PAIN. PER EMS PT WAS KICKED OUT OF PAIN MANAGEMENT RECENTLY. Triage Nurses Notes Reviewed? yes Onset: Abrupt Duration: constant Timing: remote history Severity: severe Severity Numbers: 10 HPI: Patient is a 61-year-old female with a past medical history of chronic pain to her lower extremities were patient has been evaluated on multiple occasions in [facility] emergency room. Patient presents to emergency room brought in by ambulance for exacerbation of her lower extremity foot pain where she does receive home health care and patient states that she had a disagreement with her pain management provider which she no longer receives narcotic medications. Patient denies any mechanism of injury denies any fever chills shortness of breath cough or leg swelling. Patient hasn't taken any medications for her symptoms. Past History Travel History Traveled to [place] past 21 day No Medical History Any Pertinent Medical History? 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 FH: CAD (coronary artery disease) FH: myocardial infarction relation unknown (HTN, Diabetee, Bipolar disorder and Depression). Hx Contributory? No Review of Systems Review of Systems Constitutional: Reports: no symptoms. EENTM: Reports: no symptoms. Respiratory: Reports: no symptoms. Cardiovascular: Reports: no symptoms. Gastrointestinal/Abdominal: Reports: no symptoms. Genitourinary: Reports: no symptoms. Musculoskeletal: Reports: see HPI, joint pain. Skin: Reports: no symptoms. Neurological/Psychological: Reports: no symptoms. Hematologic/Endocrine: Reports: no symptoms. Immunological: Reports: no symptoms. All Other Systems: Reviewed and Negative Physical Exam Physical Exam General Appearance: no apparent distress, alert, comfortable Head: atraumatic Eyes: Bilateral: normal appearance. Ears, Nose, Throat: hearing grossly normal Neck: normal inspection Peripheral Pulses: 2+ radial (R), 2+ radial (L) Hip Left: normal inspection Hip Right: normal inspection Knee Left: normal inspection Knee Right: normal inspection Foot Left: PARTIAL AMPUTATION, NO ERYTHEMA OR WARMTH Foot Right: normal inspection Neurologic/Tendon: normal sensation, normal motor functions, normal tendon functions, responds to pain, no evidence tendon injury, no pulse deficit Skin: intact, normal color, warm/dry Progress Differential Diagnosis: arterial insufficiency, CHF, compartment syndrome, contusion, dislocation, DVT, fracture, gout, septic arthritis, sprain, tendon injury Plan of Care: Current Medications Sig/Macy Start time Last Medication Dose Stop Time Status Admin Diclofenac Sodium 25 MG ONCE ONE 03/11 2345 CAN (Voltaren 25MG Tab) 03/11 2346 Dicyclomine HCl 25 MG ONCE ONE 03/11 2345 CAN (Bentyl Injection) 03/11 2346 Patient currently shows no acute findings on physical exam patient was strongly advised to follow-up with pain management. (LISA BYRD,DONNY) Departure Departure Disposition: HOME OR SELF CARE Condition: Stable Clinical Impression Primary Impression: Chronic leg pain Referrals: LIZ BARNES APRN (PCP/Family) Additional Instructions: As discussed, follow-up with [facility] mural painter tomorrow for further evaluation treatment, SEE BELOW FOR CONTACT INFORMATION. IF symptoms worsen return to emergency room. Begin the prescription of diclofenac for pain and inflammation. [facility] Directions [address] [facility] in [place], [place] Address: [address] [place] [id number] Departure Forms: Customer Survey General Discharge Information Prescriptions: Current Visit Scripts Diclofenac Sodium 1 TAB PO BID PRN PAIN #14 TAB
[2017-03-11 23:35] VITALS: BP 118/64
[2017-03-11] MEDS ORDERED: DICLOFENAC SODI50 M3 PO (23:52)
[2017-03-21] MEDS ORDERED: DOXYCYCLINE HY100 M4 PO (20:33)
== END 2017-03-12 00:04 ==
LOC: ERH 23:28
DX: G89.29 Other chronic pain (principal); M79.606 Pain in leg, unspecified
CPT/HCPCS: 96372; J0500; J1200; J1885

== ENCOUNTER 2017-03-13 22:38 | Emergency (ER) | payer OTHER ==
[~2017-03-13] VITALS: Ht 176.5 cm; Wt 120.7 kg
[~2017-03-13 22:38] MED LIST changes: +DICLOFENAC SODI50 M3 PO
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
[2017-03-14 04:58] VITALS: BP 122/76
[2017-03-21] MEDS ORDERED: DOXYCYCLINE HY100 M4 PO (20:33)
== END 2017-03-14 05:56 ==
LOC: ERH 22:38
DX: G89.29 Other chronic pain (principal)

== ENCOUNTER 2017-03-15 22:42 | Emergency (ER) | payer OTHER ==
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
[2017-03-21] MEDS ORDERED: DOXYCYCLINE HY100 M4 PO (20:33)
== END 2017-03-15 22:55 ==
LOC: ERH 22:42
DX: G89.29 Other chronic pain (principal); G62.9 Polyneuropathy, unspecified

== ENCOUNTER 2017-03-26 23:20 | Emergency (ER) | payer OTHER ==
[2017-03-26 23:20] VITALS: BP 124/86
--- NOTE | 2017-03-27 00:15 | ED UPPER/LOWER EXTREMITY COMPL ---
History of Present Illness General Chief Complaint: General Adult Stated Complaint: BERTA PT C/O BILAT LEG PAIN MANY VISITS FOR SAME Source: patient Exam Limitations: no limitations Vital Signs & Intake/Output Vital Signs & Intake/Output . Allergies Coded Allergies: No Known Allergies (03/22/17) Reconcile Medications Diclofenac Sodium 50 MG TABLET.DR 1 TAB PO BID PRN PAIN Doxycycline Hyclate 100 MG TABLET 1 TAB PO BID cellulitis Duloxetine Hydrochloride (Cymbalta) 30 MG CAPSULE.DR 1 CAP PO DAILY NEUROPATHY (Reported) Gabapentin 300 MG CAPSULE 2 CAP PO TID NEUROPATHY (Reported) Glimepiride 4 MG TABLET 1 TAB PO DAILY DM (Reported) Ibuprofen 600 MG TABLET 1 TAB PO Q6-PRN PRN leg pain with food Insulin Glargine,Hum.rec.anlog (Lantus Solostar) 100 UNIT/1 ML INSULN.PEN 25 UNIT SC QAM DIABETES (Reported) Insulin Lispro (Humalog Kwikpen U-100) 100 UNIT/ML INSULN.PEN 1 UNITS SC TIDAC DM (Reported) SLIDING SCALE Ketorolac Tromethamine 10 MG TABLET 1 TAB PO BID PRN BREAKTHROUGH PAIN Meloxicam 15 MG TABLET 1 TAB PO DAILY PAIN/INFLAMMATION (Reported) Metformin HCl (Glucophage) 1,000 MG TABLET 1 TAB PO BID DIABETES (Reported) Metoprolol Succinate 50 MG TAB.ER.24H 1 TAB PO DAILY HTN (Reported) Pantoprazole Sodium 40 MG TABLET.DR 1 TAB PO DAILY GERD (Reported) Prazosin Hydrochloride (Minipress) 1 MG CAPSULE 1 CAP PO QPM NIGHTMARES ( Reported) Quetiapine Fumarate 400 MG TABLET 1 TAB PO QPM SLEEP (Reported) Quetiapine Fumarate (Seroquel) 400 MG TABLET 1 TAB PO QPM SLEEP (Reported) Triage Note: TRIAGE: PATIENT BERTA FROM HOME REPORTING CHRONIC BILATERAL LEG PAIN, SEEN HERE MULTIPLE TIMES FOR SAME. PATIENT DENIES ANY CHANGES, DENIES OTHER COMPLAINTS. NO ACUTE DISTRESS NOTED. Triage Nurses Notes Reviewed? yes Onset: Gradual Duration: months, waxing and waning Severity: moderate Pain/Injury Location: Bilateral: Leg. Method of Injury: peripheral neuropathy Modifying Factors: Improves With: rest. Associated Symptoms: no swelling/redness HPI: 61 yo woman h/o partial amputation, h/o chronic pain, peripheral neuropathy, presents with continued pain. She shares that tomorrow she is going into drug rehab. She shares that there has been no new injury, no redness, no warmth. She is otherwise well. Past History Travel History Traveled to [place] past 21 day No Medical History Any Pertinent Medical History? 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 FH: CAD (coronary artery disease) FH: myocardial infarction relation unknown (HTN, Diabetee, Bipolar disorder and Depression). Hx Contributory? No Review of Systems Review of Systems Constitutional: Reports: no symptoms. EENTM: Reports: no symptoms. Respiratory: Reports: no symptoms. Cardiovascular: Reports: no symptoms. Gastrointestinal/Abdominal: Reports: no symptoms. Genitourinary: Reports: no symptoms. Musculoskeletal: Reports: no symptoms. Skin: Reports: no symptoms. Neurological/Psychological: Reports: no symptoms. Hematologic/Endocrine: Reports: no symptoms. Immunological: Reports: no symptoms. All Other Systems: Reviewed and Negative Physical Exam Physical Exam General Appearance: well developed/nourished, mild distress Head: atraumatic Eyes: Bilateral: normal appearance. Ears, Nose, Throat: normal pharynx, normal ENT inspection, hearing grossly normal Neck: normal inspection, supple Cardiovascular/Respiratory: regular rate/rhythm Back: normal inspection Skin: intact, normal color, warm/dry Lymphatic: no anterior cervical pat Comments: bilateral extremities are similar to prior exam. no sign of infection, partial amputation noted. diminished light touch as per prior exam. Progress Differential Diagnosis: chronic pain, peripheral neuropathy Plan of Care: discussed at length. she declines ibuprofen. see below. Departure Departure Disposition: HOME OR SELF CARE Condition: Stable Clinical Impression Primary Impression: Chronic pain Referrals: LIZ BARNES APRN (PCP/Family) Departure Forms: Customer Survey General Discharge Information Comments 03/27/17, 0:15.... discussed at length with patient... she declines ibuprofen. she does not wish VNA services. She states she is going to
== END 2017-03-27 00:15 ==
LOC: ERH 23:20
DX: G89.29 Other chronic pain (principal)